=== PATIENT | male | born 1965 | race Caucasian/White ===

== ENCOUNTER 2017-05-18 06:06 | Emergency (ER) | payer MEDICAID ==
[~2017-05-18] VITALS: Ht 182.9 cm; Wt 95.3 kg
[~2017-05-18 06:06] MED LIST: AMITRIPTYLINE50 MG PO; HUMULIN 70100 UNITS/ SC; HYDROCODONE-APA1 TA2 PO; LISINOPRIL40 MG PO; LOPERAMIDE1 MG/5 ML PO; NADOLOL40 MG PO; PANTOPRAZOLE SO40 MG PO; SPIRONOLACTONE25 MG NG; ZOFRAN ODT8 MG PO
--- NOTE | 2017-05-18 06:25 | Emergency Room Report ---
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 LACERATION ABOVE RIGHT EYE/EYEBROW. 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 N Clinical Suspician of Infection? N Mental Status: 1 - Regular (Normal Baseline) Sepsis Risk:Possible Sepsis Risk Have you (or family members/close friends) recently traveled outside the [place]? N If Yes, where/when: Have you had exposure to infectious disease within the past month? N TB? Other? Specify: Source patient, RN notes reviewed, EMS, old records Exam Limitations no limitations Comment trip type fall with rt eyebrow lac -1.5 cm- no loc or palpatations and no syncope and no chest pain or hip pain Cardiac Chest Pain Chest pain indicative of cardiac No Timing/Duration this evening Severity moderate ALLERGIES Coded Allergies: No Known Allergies (07/10/15) Home Medications Reported Medications AMITRIPTYLINE HCL (Amitriptyline HCl) 50 MG PO QHS INSUL REG 30%ISOPHAN 70% HUMAN (Humulin 70-30 Vial) 40 UNITS SC TID Lisinopril (Lisinopril 40MG) 40 MG PO DAILY Pantoprazole Sodium (Pantoprazole 40MG) 40 MG PO DAILY Ondansetron (Zofran 8MG Odt) 4 MG PO PRN PRN N/V Nadolol 40 MG PO DAILY Loperamide Hydrochloride (Loperamide) 1 MG PO DAILY Spironolactone (Spironolactone) 25 MG NG DAILY HYDROCODONE/ACETAMINOPHEN (Hydrocodon-Acetaminoph 7.5-325) 1 TAB PO TID History Medical History General CAD? No Angina: No AR: No Hypertension? Yes Hyperlipidemia? No CHF? No DVT? No PE? No COPD? No Asthma? No Anemia? No GERD? Yes Gastric ulcers? No GI Bleed? No Hernia? No Thyroid Problems? No Hypothyroidism? No CVA? No Seizures? No Diabetes? Yes Insulin Dependent: Yes Insulin Pump: No Home FSBS? Yes Renal Insuffiency? No End Stage Renal Disease? No UTI? No Stones? No BPH? No GB Disease: No Nephritic Syndrome? No Asplenia? No Hepatitis? Yes Sickle Cell Disease? No Arthritis? Yes Migraines? No Cataracts? No Glaucoma? No MRSA? No HIV? No TB? No Anxiety? No Depression? No Cancer? No More? No Immunization Hx DT/Tetanus 1-4 Years Ago Surgical Hx Previous Surgery?Y RIGHT CLAVICAL Lung Procedures HIP RELACEMENT Social History Smoking Hx Smoker: Current Every Day Smoker Tobacco: Yes Type Cigarettes Packs/day 1 1/2 - 2 Packs Alcohol Alcohol: No Drugs none Review of Systems All Other Systems Reviewed and Negative Constitutional denies fever Eyes denies drainage ENT denies: ear discharge, epistaxis, throat pain. Respiratory denies cough, denies wheezing Cardiovascular denies chest pain, denies palpitations, denies syncope Gastrointestinal denies abdominal pain, denies diarrhea, denies vomiting Genitourinary denies: dysuria, frequency, hesitancy, hematuria. Musculoskeletal denies back pain, denies joint pain, denies joint swelling, denies neck pain Skin see HPI, denies rash, other Psychiatric/Neurological denies headache, denies seizure Physical Exam Vital Signs Vital Signs Date Time Temp Pulse Resp B/P Pulse O2 O2 Flow FiO2 Ox Delivery Rate 05/18 0638 88 20 151/76 94 05/18 0609 98.7 94 20 152/67 94 - WBC >12,000 or <4,000 or 10% bands? 2 or more SIRS Criteria Met? B/P:152/67 MAP:95 Creatinine >2.0? UA output<0.5ml/kg/hr for 2 hrs? Platelet count >100,000? Lactate >2.0mmol/1? INR >1.2 or PTT > than 60 sec? Evidence of Organ Dysfunction? Provider documented clinical suspician of infection? N Sepsis Criteria Count: 2 Sepsis Risk: Possible Sepsis Risk General Appearance no apparent distress Eye Exam - bilateral eye PERRL, bilateral eye EOMI Ear, Nose, Throat normal ENT inspection Neck non-tender Respiratory Status No: respiratory distress. 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 No Results/Orders Current Medication Orders Sig/Ellie Start time Last Medication Dose Route Stop Time Status Admin Lidocaine HCl 0 .STK-MED ONE 05/18 612 DC .ROUTE Orders Procedure Date/time Status OP COURTSEY MEAL 05/18 626 Active Procedures Laceration/Wound Repair Laceration/Wound Repair Risks/benefits discussed with pt/guardian? Yes Tetanus status up to date Wound Location face Wound Length (cm) 1.5 Wound's Depth, Shape sucutaneous tissue Wound Explored no FB identified Risk of retained FB explained to pt/guardian? Yes Irrigated w/ Saline (ccs) 0 Wound Prep Hibiclens, Saline Anesthesia 1% Lidocaine, Local Volume Anesthetic (ccs) 2 Wound Debrided none Wound Repaired With sutures Suture Size/Type 4:0, Ethilon Layer Closure No Total Number Sutures 5 Sterile Dressing Applied Yes Splint Applied No Sling Applied No Departure Departure Time of Disposition 33 Disposition DC Home or Self Care(routine) Clinical Impression Primary Impression: Facial laceration Qualifiers: Encounter type: initial encounter Qualified Code: S01.81XA - Laceration without foreign body of other part of head, initial encounter Secondary Impressions: IDDM (insulin dependent diabetes mellitus) Condition STABLE Referrals DANIEL GRUBBS (Family) Patient Instructions DI for Laceration Repair Additional Instructions suture out 10 days and call pcp about diabetes Discharge Counseling Counseled pt/family regarding diagnosis, test results, medications/RX, follow up needs ED Critical Care Critical Care No at [id number]
--- OUTSIDE RECORDS SUMMARY | 2017-05-18 07:28 | External Medical Summary Rpt | CCD ---
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 UL 1 38 CY TR A2 #0 23 GL 32 UC OS E SY ST 00 08 09 30 30 00 CV Ac PI 53 -3 -2 .0 00 S ti RI 61 1- 9- 00 01 PH ve N 00 20 20 39 AR EC 44 17 17 04 MA 1 40 CY 81 #0 MG 23 32 TA BL ET LE 65 08 09 5. 5 00 CV Ac VO 86 -3 -2 00 00 S ti FL 20 1- 9- 0 01 PH ve OX 53 20 20 39 AR AC 75 17 17 04 MA IN 0 39 CY 50 #0 0 23 MG 32 TA BL ET FL 57 08 09 2. 2 00 CV Ac UC 23 -3 -2 00 00 S ti ON 70 1- 9- 0 01 PH ve AZ 00 20 20 39 AR OL 51 17 17 03 MA E 1 00 CY 15 0 #0 MG 23 32 TA BL ET FU 00 09 09 30 30 00 CV Ac RO 37 -0 -2 .0 00 S ti SE 80 5- 9- 00 01 PH ve OH 20 20 20 39 AR DE 81 17 17 20 MA 0 62 CY 20 #0 MG 23 32 TA BL ET BE 67 09 09 20 10 00 CV Ac NZ 87 -0 -2 .0 00 S ti ON 70 2- 9- 00 01 PH ve AT 10 20 20 38 AR AT 50 17 17 87 MA E 5 41 CY 10 0 #0 MG 23 32 CA PS UL E GA 65 08 09 90 30 00 CV Ac BA 86 -3 -2 .0 00 S ti PE 20 0- 2- 00 01 PH ve NT 52 20 20 38 AR IN 40 17 17 98 MA 5 14 CY 80 0 #0 MG 23 32 TA BL ET OX 10 08 09 90 30 00 CV Ac YC 70 -3 -2 .0 00 S ti OD 20 0- 2- 00 01 PH ve ON 05 20 20 38 AR E 60 17 17 97 MA HC 1 97 CY L 10 #0 23 MG 32 TA BL ET ON 53 08 09 10 28 00 CV Ac ET 88 -2 -2 0. 00 S ti OU 50 9- 2- 00 01 PH ve CH 24 20 20 0 38 AR 51 17 17 85 MA UL 0 61 CY TR A #[address] RI PS TR 50 08 09 30 30 00 CV Ac AZ 11 -2 -2 .0 00 S ti OD 10 5- 2- 00 01 PH ve ON 43 20 20 38 AR E 30 17 17 76 MA 50 1 19 CY MG #0 23 TA 32 BL ET RA 64 08 09 60 30 00 CV Ac NI 38 -2 -2 .0 00 S ti TI 00 4- 2- 00 01 PH ve DI 80 20 20 38 AR NE 30 17 17 71 MA 7 06 CY 15 0 #0 MG 23 32 TA BL ET LA 50 08 09 27 [address] 38 -2 -1 00 00 S ti UL 30 3- 5- .0 01 PH ve OS 77 20 20 00 38 AR E 91 17 17 65 MA 10 6 08 CY GM #0 /1 23 5 32 ML SO BRIAN TI ON LE 65 08 09 6. 6 00 CV Ac VO 86 -2 -1 00 00 S ti FL 20 3- 5- 0 01 PH ve OX 53 20 20 38 AR AC 82 17 17 65 MA IN 0 07 CY 75 #0 0 23 MG 32 TA BL ET BU 10 08 30 30 00 CV Ac CA 37 -2 -1 .0 00 S ti OP 00 3- 5- 00 01 PH ve IO 10 20 20 31 AR N 15 17 17 81 MA HC 0 01 CY L XL #0 23 15 32 0 MG TA BL ET LI 68 08 30 30 00 CV Ac SI 18 -2 -1 .0 00 S ti NO 00 3- 5- 00 01 PH ve CA 51 20 20 34 AR IL 70 17 17 98 MA 3 82 CY 40 #0 MG 23 32 TA BL ET BD 08 08 10 30 00 CV Ac 29 -2 -1 0. 00 S ti IN 03 3- 5- 01 PH ve CONTEH 28 20 20 0 32 AR LI 46 17 17 27 MA N 8 44 CY SY R #0 0. 23 5 32 ML 8M MX 31 G NO 00 03 12 30 30 00 CV Ac VO 16 -2 -1 .0 00 S ti LI 91 3- 5- 01 PH ve N 83 20 20 28 AR 70 71 17 17 85 MA -3 1 21 CY 0 10 #0 0 23 UN 32 IT /M L AL LI 68 05 30 30 00 CV Ac SI 18 -2 -2 .0 00 S ti NO 00 3- 01 PH ve CA 51 20 20 34 AR IL 70 17 17 98 MA 3 82 CY 40 #0 MG 23 32 TA BL ET BU 10 05 30 30 00 CV Ac CA 37 -2 -2 .0 00 S ti OP 00 - 3- 01 PH ve IO 10 20 20 31 AR N 15 17 17 81 MA HC 0 01 CY L XL #0 23 15 32 0 MG TA BL ET NO 00 12 07 30 30 00 CV Ac RT 09 -2 -1 .0 00 S ti RI 30 4- 6- 00 01 PH ve PT 81 20 20 35 AR YL 10 17 17 02 MA IN 1 23 CY E HC #0 L 23 25 32 MG CA P AC 65 05 10 30 00 CV Ac CU 70 -2 -1 0. 00 S ti -C 20 1- 6- 00 01 PH ve HE 40 20 20 0 28 AR K 81 17 17 85 MA AV 0 22 CY IV A #0 PL [address] RP NO 00 05 06 30 30 00 CV Ac VO 16 -2 -1 .0 00 S ti LI 91 1- 6- 00 01 PH ve N 83 20 20 28 AR 70 71 17 17 85 MA -3 1 21 CY 0 10 #0 0 23 UN 32 IT /M L AL GA 65 05 06 90 30 00 CV Ac BA 86 -1 -0 .0 00 S ti PE 20 0- 2- 00 01 PH ve NT 52 20 20 33 AR IN 40 17 17 04 MA 5 41 CY 80 0 #0 MG 23 32 TA BL ET OX 10 05 06 90 30 00 CV Ac YC 70 -1 -0 .0 00 S ti OD 20 0- 2- 00 01 PH ve ON 05 20 20 34 AR E 60 17 17 36 MA HC 1 62 CY L 10 #0 23 MG 32 TA BL ET AC 65 05 06 1. 30 00 CV Ac CU 70 -0 -0 00 00 S ti -C 20 4- 2- 0 01 PH ve HE 10 20 20 34 AR K 11 17 17 12 MA AV 0 81 CY IV A #0 PL 23 US 32 ME TE R BU 10 04 05 30 30 00 CV Ac CA 37 -2 -2 .0 00 S ti OP 00 9- 6- 00 01 PH ve IO 10 20 20 31 AR N 15 17 17 81 MA HC 0 01 CY L XL #0 23 15 32 0 MG TA BL ET OH 00 04 05 30 30 00 CV Ac RT 09 -2 -2 .0 00 S ti AZ 37 9- 6- 00 01 PH ve AP 20 20 20 32 AR IN 65 17 17 89 MA E 6 41 CY 15 #0 MG 23 32 TA BL ET DU 66 04 05 30 30 00 CV Ac LO 99 -2 -1 .0 00 S ti XE 30 3- 9- 00 01 PH ve TI 66 20 20 30 AR NE 33 17 17 17 MA 0 17 CY HC L #0 DR 23 32 30 MG CA P NO 00 04 05 30 30 00 CV Ac VO 16 -2 -1 .0 00 S ti LI 91 3- 9- 00 01 PH ve N 83 20 20 28 AR 70 71 17 17 85 MA -3 1 21 CY 0 10 #0 0 23 UN 32 IT /M L AL AC 65 04 05 10 30 00 CV Ac CU 70 -2 -1 0. 00 S ti -C 20 3- 9- 00 01 PH ve HE 40 20 20 0 28 AR K 81 17 17 85 MA AV 0 22 CY IV A #0 PL [address] RP BD 08 04 05 10 30 00 CV Ac 29 -2 -1 0. 00 S ti IN 03 3- 9- 00 01 PH ve CONTEH 28 20 20 0 32 AR LI 46 17 17 27 MA N 8 44 CY SY R #0 0. 23 5 32 ML 8M MX 31 G LA 59 04 05 60 21 00 CV Ac MO 74 -0 -0 .0 00 S ti TR 60 6- 5- 00 01 PH ve IG 24 20 20 32 AR IN 50 17 17 89 MA E 1 40 CY 25 #0 MG 23 32 TA BL ET OH 00 04 05 30 30 00 CV Ac RT 09 -0 -0 .0 00 S ti AZ 37 6- 5- 00 01 PH ve AP 20 20 20 32 AR IN 65 17 17 89 MA E 6 41 CY 15 #0 MG 23 32 TA BL ET GA 65 04 05 90 30 00 CV Ac BA 86 -1 -0 .0 00 S ti PE 20 0- 5- 00 01 PH ve NT 52 20 20 33 AR IN 40 17 17 04 MA 5 41 CY 80 0 #0 MG 23 32 TA BL ET LI 68 03 04 30 30 00 CV Ac SI 18 -2 -2 .0 00 S ti NO 00 4- - 01 PH ve CA 51 20 20 28 AR IL 70 17 17 67 MA 3 87 CY 40 #0 MG 23 32 TA BL ET NO 00 03 04 30 30 00 CV Ac VO 16 -2 -2 .0 00 S ti LI 91 4- 1- 01 PH ve N 83 20 20 28 AR 70 71 17 17 85 MA -3 1 21 CY 0 10 #0 0 23 UN 32 IT /M L AL DU 66 03 04 30 30 00 CV Ac LO 99 -2 -2 .0 00 S ti XE 30 4- 1- 00 01 PH ve TI 66 20 20 30 AR NE 33 17 17 17 MA 0 17 CY HC L #0 DR 23 32 30 MG CA P NO 00 03 04 30 30 00 CV Ac RT 09 -2 -2 .0 00 S ti RI 30 4- 1- 00 01 PH ve PT 81 20 20 30 AR YL 10 17 17 04 MA IN 1 39 CY E HC #0 L 23 25 32 MG CA P CA 68 03 04 30 30 00 CV Ac AM 46 -2 -2 .0 00 S ti IP 20 4- 1- 00 01 PH ve EX 33 20 20 30 AR OL 19 17 17 04 MA E 0 37 CY 0. 25 #0 23 MG 32 TA BL ET BD 08 03 04 10 30 00 CV Ac 29 -2 -2 0. 00 S ti IN 03 4- 1- 00 01 PH ve CONTEH 28 20 20 0 32 AR LI 46 17 17 27 MA N 8 44 CY SY R #0 0. 23 5 32 ML 8M MX 31 G AC 65 03 04 10 30 00 CV Ac CU 70 -2 -2 0. 00 S ti -C 20 4- 1- 00 01 PH ve HE 40 20 20 0 28 AR K 81 17 17 85 MA AV 0 22 CY IV A #0 PL [address] RP BU 10 03 04 30 30 00 CV Ac CA 37 -1 -0 .0 00 S ti OP 00 5- 7- 00 01 PH ve IO 10 20 20 31 AR N 15 17 17 81 MA HC 0 01 CY L XL #0 23 15 32 0 MG TA BL ET GA 65 03 04 90 30 00 CV Ac BA 86 -1 -0 .0 00 S ti PE 20 3- 7- 00 01 PH ve NT 52 20 20 31 AR IN 40 17 17 64 MA 5 63 CY 80 0 #0 MG 23 32 TA BL ET OX 10 03 04 90 30 00 CV Ac YC 70 -1 -0 .0 00 S ti OD 20 0- 7- 00 01 PH ve ON 05 20 20 31 AR E 60 17 17 54 MA HC 1 56 CY L 10 #0 23 MG 32 TA BL ET CONTEH 65 02 03 20 10 00 CV Ac LF 86 -2 -1 .0 00 S ti AM 20 0- 7- 00 01 PH ve ET 42 20 20 30 AR HO 00 17 17 63 MA XA 5 09 CY ZO LE #0 -T 23 MP 32 DS TA BL ET BD 08 02 03 10 30 00 CV Ac 29 -1 -1 0. 00 S ti SY 03 4- 0- 00 01 PH ve RI 28 20 20 0 30 AR NG 46 17 17 36 MA E 6 64 CY 0. 5 #0 ML 23 32 12 .7 MM X3 0G AC 65 02 03 10 30 00 CV Ac CU 70 -1 -1 0. 00 S ti -C 20 4- 0- 00 01 PH ve HE 40 20 20 0 28 AR K 81 17 17 85 MA AV 0 22 CY IV A #0 PL [address] RP DU 66 02 03 30 30 00 CV Ac LO 99 -1 -1 .0 00 S ti XE 30 0- 0- 00 01 PH ve TI 66 20 20 30 AR NE 33 17 17 17 MA 0 17 CY HC L #0 DR 23 32 30 MG CA P NO 00 02 03 30 30 00 CV Ac VO 16 -1 -1 .0 00 S ti LI 91 2- 0- 00 01 PH ve N 83 20 20 28 AR 70 71 17 17 85 MA -3 1 21 CY 0 10 #0 0 23 UN 32 IT /M L AL CA 68 02 03 30 30 00 CV Ac AM 46 -0 -0 .0 00 S ti IP 20 8- 3- 00 01 PH ve EX 33 20 20 30 AR OL 19 17 17 04 MA E 0 37 CY 0. 25 #0 23 MG 32 TA BL ET LI 68 02 03 30 30 00 CV Ac SI 18 -0 -0 .0 00 S ti NO 00 8- 3- 00 01 PH ve CA 51 20 20 28 AR IL 70 17 17 67 MA 3 87 CY 40 #0 MG 23 32 TA BL ET OX 10 02 03 90 30 00 CV Ac YC 70 -0 -0 .0 00 S ti OD 20 8- 3- 00 01 PH ve ON 05 20 20 30 AR E 60 17 17 05 MA HC 1 38 CY L 10 #0 23 MG 32 TA BL ET NO 00 02 03 30 30 00 CV Ac RT 09 -0 -0 .0 00 S ti RI 30 8- 3- 00 01 PH ve PT 81 20 20 30 AR YL 10 17 17 04 MA IN 1 39 CY E HC #0 L 23 25 32 MG CA P GA 65 02 03 90 30 00 CV Ac BA 86 -0 -0 .0 00 S ti PE 20 8- 3- 00 01 PH ve NT 52 20 20 30 AR IN 30 17 17 04 MA 5 38 CY 60 0 #0 MG 23 32 TA BL ET GA 69 01 02 90 30 00 CV Ac BA 09 -1 -1 .0 00 S ti PE 70 3- 0- 00 01 PH ve NT 81 20 20 27 AR IN 50 17 17 06 MA 7 28 CY 40 0 #0 MG 23 32 CA PS UL E NO 00 01 02 30 30 00 CV Ac VO 16 -1 -1 .0 00 S ti LI 91 6- 0- 00 01 PH ve N 83 20 20 28 AR 70 71 17 17 85 MA -3 1 21 CY 0 10 #0 0 23 UN 32 IT /M L AL BD 08 01 02 10 30 00 CV Ac 29 -1 -1 0. 00 S ti SY 03 3- 0- 00 01 PH ve RI 28 20 20 0 28 AR NG 46 17 17 85 MA E 6 23 CY 0. 5 #0 ML 23 32 12 .7 MM X3 0G AC 65 01 02 10 30 00 CV Ac CU 70 -1 -1 0. 00 S ti -C 20 3- 0- 00 01 PH ve HE 40 20 20 0 28 AR K 81 17 17 85 MA AV 0 22 CY IV A #0 PL [address] RP LI 68 01 02 30 30 00 CV Ac SI 18 -1 -1 .0 00 S ti NO 00 3- 0- 00 01 PH ve CA 51 20 20 28 AR IL 70 17 17 67 MA 3 87 CY 40 #0 MG 23 32 TA BL ET RA 55 12 01 60 30 00 CV Ac NI 11 -0 -0 .0 00 S ti TI 10 5- 9- 00 01 PH ve DI 12 20 20 26 AR NE 90 16 17 93 MA 5 11 CY 15 0 #0 MG 23 32 CA PS UL E OX 10 12 01 90 30 00 CV Ac YC 70 -1 -0 .0 00 S ti OD 20 0- 9- 00 01 PH ve ON 05 20 20 27 AR E 60 16 17 22 MA HC 1 55 CY L 10 #0 23 MG 32 TA BL ET Immunization Name Date Rout CVX Reac Dose Comm Prov Is Faci e tion ent ider Refu lity Give sed n IIV4 11-1 150 KALINA No KMSF 0-20 CAR VACC 16 NURS E PRES PRAC RV MATT FREE LALO 0.5 ML GR FOR IM USE Results Labs Lab Lab Date Result Refere Interp Status Commen Order Detail nces retati t Range on Hgb A1c MFr Bld (03-25-2017 06:09) Hgb A1c 5.9 % 4.7-6.0 complet MFr 017 ed Bld 06:09 Lactate Bld-sCnc (03-24-2017 05:08) Lactate 1.4 complet 017 mmol/L ed Bld-sCn 05:08 c Bacteria XXX Resp Cult (03-23-2017 12:20) Bacteri INSP complet a XXX 017 SMEAR ed Anaerob 12:20 CONTAIN e+Aerob S >=10 e Cult SQUAMOU S EPITHEL IAL CELLS PER LOW POWER FIELD, SUGGEST JOSE F OF POOR QUALITY . CULTURE NOT PERFORM ED. PLEASE RECOLLE CT IF CLINICA LLY INDICAT ED. A CREDIT HAS BEEN ISSUED. L CC XXX NOTAP complet -aCnc 017 NOT ed 12:20 APPLICA BLE L Procedures Procedure DOS Code Location Performer Comment RADIOLOGI 94975 [facility] C EXAM 7 N N CHEST 2 COMMUNTIY COMMUNTIY VIEWS HOSPITA HOSPITA FRONTAL&L ATERAL THERAPEUT [address]6890 [place] IC 7 MEDICAL PROPHYLAC SERV TIC/DX FOUNDATIO INJECTION N SUBQ/IM DUP-SCAN 52649 [facility] XTR VEINS 7 N N COMPLETE COMMUNTIY COMMUNTIY HOSPITA HOSPITA BILATERAL STUDY DRUG TEST 38920 [facility] PRSMV 7 ORA NAPOLES MD,[place] [address] [place] RASLAU HEAD/BRAI 7 MEDICAL N W/O SERV CONTRAST FOUNDATIO MATERIAL N RADIOLOGI 46306 [place] NICHOL C 7 MEDICAL EXAMINATI SERV ON CHEST FOUNDATIO SINGLE N VIEW FRONTAL ECG 32792 [place] SANTA ROUTINE 7 MEDICAL ECG SERV W/LEAST FOUNDATIO 12 LDS N I&R ONLY GROUND A0425 JAME JAME MILEAGE 7 FAYETTE FAYETTE PER URBAN URBAN STATUTE COGOVT COGOVT MILE AMBULANCE A0429 JAME JAME SERVICE 7 FAYETTE FAYETTE BLS URBAN URBAN EMERGENCY COGOVT COGOVT TRANSPORT GROUND A0425 RURAL RURAL MILEAGE 7 METRO METRO PER AMBULANCE AMBULANCE STATUTE MILE ALS A0398 [facility] ROUTINE 7 METRO METRO [place]POSABL [place] [address] [place] TRUE HEAD/BRAI 7 MEDICAL N W/O SERV CONTRAST FOUNDATIO MATERIAL N AMB A0427 [facility] SERVICE 7 METRO METRO ALS AMBULANCE AMBULANCE EMERGENCY TRANSPORT LEVEL 1 RADIOLOGI 41761 [facility] [place] JACKLIC C 7 RADIOLOGY EXAMINATI ON CHEST SINGLE VIEW FRONTAL SBSQ 11532 [facility] 7 HEALTH CARE/DAY MEDICAL 25 GROUP MINUTES SBSQ 38523 [facility] 7 HEALTH S CARE/DAY MEDICAL 35 GROUP MINUTES SBSQ 99290 [facility] 7 HEALTH CARE/DAY MEDICAL 25 GROUP MINUTES SWALLOWIN 38792 [place] ALLEY SEALSJ 7 MEDICAL W/CINERAD SERV IOGRAPY/V FOUNDATIO IDRADIOG N SBSQ 09935 [facility] 7 NURSE CARE/DAY PRACTITIO 35 NER GR MINUTES RADIOLOGI 75252 [place] KATIA C 7 MEDICAL EXAMINATI SERV ON CHEST FOUNDATIO SINGLE N VIEW FRONTAL RADIOLOGI 47041 [place] KATIA 7 MEDICAL EXAMINATI SERV ON CHEST FOUNDATIO SINGLE N VIEW FRONTAL RADIOLOGI 85203 [facility] HATFIEL[facility] 7 MEDICAL AYA EXAMINATI SERV ON CHEST FOUNDATIO SINGLE N VIEW FRONTAL SBSQ 40250 [facility] 7 NURSE CARE/DAY PRACTITIO 35 NER GR MINUTES SBSQ 78855 [facility] 7 NURSE CARE/DAY PRACTITIO 35 NER GR MINUTES RADIOLOGI 94682 [facility] 7 MEDICAL AYA EXAMINATI SERV ON CHEST FOUNDATIO SINGLE N VIEW FRONTAL SBSQ 14529 [facility] 7 NURSE CARE/DAY PRACTITIO 35 NER GR MINUTES RADIOLOGI 77431 [facility] 7 MEDICAL AYA EXAMINATI SERV ON CHEST FOUNDATIO SINGLE N VIEW FRONTAL CRITICAL 88297 [facility] 7 NURSE ILL/INJUR PRACTITIO ED NER GR PATIENT INIT 30-74 MIN ECG 43761 [place] ACACIA ROUTINE 7 MEDICAL ECG SERV W/LEAST FOUNDATIO 12 LDS N I&R ONLY RADIOLOGI 68489 [place] PACO 7 MEDICAL EXAMINATI SERV ON CHEST FOUNDATIO SINGLE N VIEW FRONTAL SBSQ 01026 [facility] 7 NURSE CARE/DAY PRACTITIO 35 NER GR MINUTES RADIOLOGI 16801 [place] ANTONIO C 7 MEDICAL EXAMINATI SERV ON CHEST FOUNDATIO SINGLE N VIEW FRONTAL CRITICAL 74175 [facility] 7 NURSE ILL/INJUR PRACTITIO ED NER GR PATIENT INIT 30-74 MIN RADIOLOGI 52993 [place] PRASANNA C 7 MEDICAL EXAMINATI SERV ON CHEST FOUNDATIO SINGLE N VIEW FRONTAL SBSQ 59951 [facility] 7 NURSE CARE/DAY PRACTITIO 35 NER GR MINUTES RADEX 57106 [place] BRENT ABDOMEN 1 7 MEDICAL SERV ANTEROPOS FOUNDATIO TERIOR N VIEW BLD BANK 10788 [facility] 7 [facility] STANDARD REPRT ARTL 53769 [facility] CATHJ/CAN 7 NURSE NULJ PRACTITIO MNTR/ABBASI NER GR SFUSION SPX PRQ RADIOLOGI 42172 [place] URBAN C 7 MEDICAL EXAMINATI SERV ON CHEST FOUNDATIO SINGLE N VIEW FRONTAL CRITICAL 29913 [facility] 7 NURSE ILL/INJUR PRACTITIO ED NER GR PATIENT INIT 30-74 MIN ESOPHAGOG 85420 [facility] ASTRODUOD 7 MEDICAL ENOSCOPY SERV TRANSORAL FOUNDATIO N DIAGNOSTI C RADIOLOGI 48606 [place] PRASANNA C 7 MEDICAL EXAMINATI SERV ON CHEST FOUNDATIO SINGLE N VIEW FRONTAL SBSQ 34794 [facility] 7 MEDICAL CARE/DAY SERV 35 FOUNDATIO MINUTES N RADEX 27615 [place] WAGONER ABDOMEN 1 7 MEDICAL SERV ANTEROPOS FOUNDATIO TERIOR N VIEW CRITICAL 82005 [facility] 7 NURSE ILL/INJUR PRACTITIO ED NER GR PATIENT INIT 30-74 MIN RADIOLOGI 87119 [place] PRASANNA C 7 MEDICAL EXAMINATI SERV ON CHEST FOUNDATIO SINGLE N VIEW FRONTAL RADIOLOGI 48337 [place] DUGGAN C 7 MEDICAL EXAMINATI SERV ON CHEST FOUNDATIO SINGLE N VIEW FRONTAL CRITICAL 64555 [facility] SH[facility] CARE 7 NURSE ILL/INJUR PRACTITIO ED NER GR PATIENT INIT 30-74 MIN DUP-SCAN 81109 [facility]ENN[facility] 7 MEDICAL ABDL/PEL/ SERV SCROT&/RP FOUNDATIO R ORGN N COM RADIOLOGI 62418 [place] C 7 MEDICAL MEDICAL EXAMINATI SERV SERV ON CHEST FOUNDATIO FOUNDATIO SINGLE N N VIEW FRONTAL INITIAL 76455 [place] NICKL III INPATIENT 7 MEDICAL CONSULT SERV NEW/ESTAB FOUNDATIO PT [address] [place] [address] [place] BRENT ABDOMINAL 7 MEDICAL REAL SERV TIME FOUNDATIO W/IMAGE N LIMITED SBSQ 16571 [facility] 7 NURSE CARE/DAY PRACTITIO 35 NER GR MINUTES SBSQ 30398 [place] [address] NURSE CARE/DAY PRACTITIO 35 NER GR MINUTES RADIOLOGI 83639 [place] JOVI OLSONI C 7 MEDICAL EXAMINATI SERV ON CHEST FOUNDATIO SINGLE N VIEW FRONTAL CRITICAL 65288 [facility] MAURI CARE 7 NURSE ILL/INJUR PRACTITIO ED NER GR PATIENT INIT 30-74 MIN RADIOLOGI 68135 [place] PRASANNA C 7 MEDICAL EXAMINATI SERV ON CHEST FOUNDATIO SINGLE N VIEW FRONTAL RADEX 60204 [place] SARA ABDOMEN 1 7 MEDICAL SERV ANTEROPOS FOUNDATIO TERIOR N VIEW RADIOLOGI 83785 [place] NANCY C 7 MEDICAL EXAMINATI SERV ON CHEST FOUNDATIO SINGLE N VIEW FRONTAL CRITICAL 28783 [facility] MAURI CARE 7 NURSE ILL/INJUR PRACTITIO ED NER GR PATIENT INIT 30-74 MIN RADIOLOGI 14478 [place] PRASANNA C 7 MEDICAL EXAMINATI SERV ON CHEST FOUNDATIO SINGLE N VIEW FRONTAL RADIOLOGI 87204 [place] PRASANNA C 7 MEDICAL EXAMINATI SERV ON CHEST FOUNDATIO SINGLE N VIEW FRONTAL RADIOLOGI 84337 [place] DUGGAN C 7 MEDICAL EXAMINATI SERV ON CHEST FOUNDATIO SINGLE [place] FRONTAL ECG 80063 [place] ACACIA ROUTINE 7 MEDICAL ECG SERV W/LEAST FOUNDATIO 12 LDS N I&R ONLY RADIOLOGI 58006 [place] NANCY C 7 MEDICAL EXAMINATI SERV ON CHEST FOUNDATIO SINGLE N VIEW FRONTAL CRITICAL 23010 [facility] 7 NURSE ILL/INJUR PRACTITIO ED NER GR PATIENT INIT 30-74 MIN RADIOLOGI 09753 [place] NANCY C 7 MEDICAL EXAMINATI SERV ON CHEST FOUNDATIO SINGLE N VIEW FRONTAL RADIOLOGI 42434 [place] URBAN C 7 MEDICAL EXAMINATI SERV ON CHEST FOUNDATIO SINGLE N VIEW FRONTAL CRITICAL 19304 [facility] MAURI CARE 7 NURSE ILL/INJUR PRACTITIO ED NER GR PATIENT INIT 30-74 MIN RADIOLOGI 15480 [place] URBAN C 7 MEDICAL EXAMINATI SERV ON CHEST FOUNDATIO SINGLE N VIEW FRONTAL RADIOLOGI 09804 [place] KATIA C 7 MEDICAL EXAMINATI SERV ON CHE[place] [address] [place] NANCY ANGIOGRAP 7 MEDICAL HY CHEST SERV W/CONTRAS FOUNDATIO T/NONCONT N RAST ANES 94807 [place] DORETHA THORACOTO 7 MEDICAL JR MY & SERVICES THORACOSC OPY W/1 LUNG VNTJ INSJ 39482 [facility] SOFYA NON-TUNNE 7 NURSE LED PRACTITIO CENTRAL NER GR VENOUS CATH AGE 7 YR/> THORACOSC 31394 [place] REG OPY RMVL 7 MEDICAL INTRAPLEU SERV RAL FOUNDATIO FB/FIBRIN N DEPOSIT RADIOLOGI 49439 [place] NANCY C 7 MEDICAL EXAMINATI SERV ON CHEST FOUNDATIO SINGLE N [place] FRONTAL RADIOLOGI 01766 [place] PRASANNA Whitt 7 MEDICAL EXAMINATI SERV ON CHEST FOUNDATIO SINGLE N VIEW FRONTAL ECHO 64293 [facility] R-T 7 MEDICAL 2D SERV W/WOM-MOD FOUNDATIO E COMPL N SPEC&COLR D [facility] 29943 [facility] SOFYA W/SILVIANCL 7 NURSE ALVEOLAR PRACTITIO LAVAGE NER GR CYTP 23528 [facility] 7 Y OF [facility] SMEARS & HOSPI INTERPRET ATION SBSQ 80624 [facility] 7 NURSE CARE/DAY PRACTITIO [address] THORAX 64144 [place] KATIA W/O 7 MEDICAL CONTRAST SERV MATERIAL FOUNDATIO N ARTL 17899 [place] ANUEL CATHJ/CAN 7 MEDICAL NULJ SERV MNTR/ABBASI FOUNDATIO SFUSION N SPX PRQ RADIOLOGI 63716 [place] KATIA C 7 MEDICAL EXAMINATI SERV ON CHEST FOUNDATIO SINGLE N VIEW FRONTAL RADIOLOGI 30912 [place] KATIA C 7 MEDICAL EXAMINATI SERV ON CHEST FOUNDATIO SINGLE N VIEW FRONTAL SBSQ 47670 [facility] 7 MEDICAL CARE/DAY SERV 25 FOUNDATIO MINUTES N SBSQ 25429 [facility] 7 MEDICAL CARE/DAY SERV 15 FOUNDATIO MINUTES N RADEX 27766 [place] SARA ABDOMEN 1 7 MEDICAL SERV ANTEROPOS FOUNDATIO TERIOR N VIEW RADIOLOGI 54915 [place] ROSEDALE C 7 MEDICAL EXAMINATI SERV ON CHE[place] F[place] [address] [place] NICHOL THORACIC 7 MEDICAL SPINE W/O SERV CONTRAST FOUNDATIO MATERIAL N RADIOLOGI 48644 [place] NANCY C 7 MEDICAL EXAMINATI SERV ON CHEST FOUNDATIO SINGLE N VIEW FRONTAL AMB A0431 AIR AIR SERVICE 7 METHODS METHODS CONVNTION [facility] AIR SRVC TRANSPORT [address] INITIAL [address] [facility] 7 MEDICAL CARE/DAY SERV [address] [place] [address] [place] NIHCOL ANGIOGRAP 7 MEDICAL HY CHEST SERV W/CONTRAS FOUNDAT[place] T/[place] [address] [place] CERVICAL 7 MEDICAL SPINE W/[place] [address] [place] MERHAR ANGIOGRAP 7 MEDICAL HY NECK SERV W/CONTRAS FOUNDATIO T/NONCONT N [place] LUMBAR [address] [place]OL SPINE 7 MEDICAL W/[place] [address] [place] MER[place] MAXILLOFA 7 MEDICAL CIAL W/[place] [address] VERNON MERHAR ANGIOGRAP 7 MEDICAL HY HEAD SERV W/CONTR[place] [address] VERNON SARMIENTOER ABDOMEN & 7 MEDICAL PELVIS SERV W/CONTRAS FOUNDATIO [place] ANY [address] [facility] JT UPPER 7 N N EXTREMITY COMMUNTIY COMMUNTIY W/O HOSPITA HOSPITA CONTRAST MATRL RADEX HIP 81116 [facility] [place] FAMILIA 7 RADIOLOGY UNILATERA L WITH PELVIS 2-3 VIEWS SIMPLE 83014 [facility] [place] REPAIR 7 ANA M E SCALP/NEC EMERGENCY K/AX/SILVERIO PHYS T/TRUNK 2.5CM/< AMB A0427 JAME JAME SERVICE 7 FAYETTE FAYETTE ALS [facility] EMERGENCY [place] [address] [facility] [place] BEEBE HEAD/BRAI 7 RADIOLOGY N W/O CONTRAST MATERIAL CT LUMBAR [address]10 [facility] [place] BEEBE SPINE 7 RADIOLOGY W/O CONTRAST MATERIAL ECG 09982 [facility] CELLAROSI ROUTINE 7 ANA M - YORBA ECG EMERGENCY W/LEAST PHYS 12 LDS I&R ONLY GROUND A0425 JAME JAME MILEAGE 7 FAYETTE FAYETTE PER URBAN [place] [address] [facility] [place] BEEBE CERVICAL 7 RADIOLOGY SPINE W/O CONTRAST [place] 31771 NUBIA FARRELL SAME 7 [place], PHYS/QHP ,PSC INITIAL 15 MINS 5/> YRS DSTR 86809 NUBIA FARRELL NROLYTC 7 ALESIA [place] MD,PSC PARVERTEB FCT ADDL LMBR/SACR AL DSTR 46135 NUBIA FARRELL NROLYTC 7 ALESIA [place] MD,PSC PARVERTEB FCT SNGL LMBR/SACR AL DRUG TEST 21109 NUBIA FARRELL PRSMV 7 ORA [place] MD,PSC CHEMISTRY ANALYZERS ARTHROCEN 92670 [place] J[place] TESIS 7 ORTHOPEDI ASPIR&/IN C J MAJOR ASSOCIAT JT/BURSA W/O US INJECTION J1030 [facility] JUNIOR 7 ORTHOPEDI METHYLPRE C DNISOLONE ASSOCIAT ACETATE 40 MG RADEX 46978 [facility] [place]isha JUNIOR SHOULDER 7 ORTHOPEDI COMPLETE C MINIMUM 2 ASSOCIAT VIEWS COLLECTIO 63746 [facility] N VENOUS 7 N N BLOOD COMMUNTIY COMMUNTIY VENIPUNCT HOSPITA HOSPITA URE IADNA 04288 [facility] HEPATITIS 7 N N C QUANT COMMUNTIY COMMUNTIY & REVERSE HOSPITA HOSPITA TRANSCRIP TION MOD SED 01396 NUBIA FARRELL SAME 7 LOIDA [place]/QROGERIO ONOFRE,PSC INITIAL 15 MINS 5/> YRS DSTR 83692 NUBIA FARRELL NROLYTC 7 ALESIA NAP[place]ES MD,PSC PARVERTEB FCT ADDL LMBR/SACR AL DSTR 17393 NUBIA FARRELL NROLYTC 7 ALESIA NAPOLES MD,PSC PARVERTEB FCT SNGL LMBR/[place] [address] [facility] JT LOWER 7 N N EXTREM COMMUNTIY COMMUNTIY W/O HOSPITA [place] [address] NUBIA CRAFT PHOSPHORU 7 Cassy NAPOLES MD,PSC INORGANIC BILIRUBIN 73208 NUBIA CRAFT DIRECT 7 MD DONY,PSC COLLECTIO 25345 NUBIA CRAFT N VENOUS 7 ARIS NAPOLES MD,PSC VENIPUNCT URE COMPREHEN 49546 NUBIA CRAFT SIVE 7 [place] [address] NUBIA CRAFT GLUTAMYLT 7 SOUTH NAPOLES MD,PSC GAMMA BLOOD 84211 NUBIA CRAFT COUNT 7 DAVE NAPOLES MD,PSC AUTO&[place] [address] [facility] ABDOMINAL 7 N N REAL COMMUNTIY COMMUNTIY TIME HOSPITA HOSPITA W/IMAGE LIMITED RADEX HIP 93250 [facility] LUMPKINY WAESPE 7 ORTHOPEDI UNILATERA C L WITH ASSOCIAT PELVIS 2-3 VIEWS RADIOLOGI 31519 [facility] PATTERSON C 7 ORTHOPEDI EXAMINATI C ON KNEE 3 ASSOCIAT VIEWS DRUG TEST G0479 NUBIA CRAFT 6 NAPOLES, PRESUMP;I ,PSC NSTRUMENT ED CHEMISTRY ANLYZER CANE E0105 J & L J & L QUAD/3-CA 6 HOME HOME VANDANA [facility] MATL EQUIPMENT EQUIPMENT ADJUSTBL/ FIX W/TIPS KO ELAST L1820 [facility] BLUEGRASS W/CONDYLR 6 BRACING, BRACING, PADS&JNT INC INC PRFAB INCL FIT&ADJ RADIOLOGI 19441 [facility] Whitt EXAM 6 ORTHOPEDI MONIQUE KNEE C COMPLETE ASSOCIAT 4/MORE VIEWS INJECTION J1030 [facility] JUNIOR 6 ORTHOPEDI MONIQUE METHYLPRE C DNISOLONE ASSOCIAT ACETATE 40 MG ARTHROCEN 33615 [facility] LUMPKINMaisha JUNIOR TESIS 6 ORTHOPEDI MONIQUE ASPIR&/IN C J MAJOR ASSOCIAT JT/BURSA W/O US COMPREHEN 94772 [place] [address] Y Y [facility] PANEL HEMOGLOBI [address] SALIMA A1C IM ADM 96987 [facility] KALINA CAR PRQ ID 6 NURSE SUBQ/IM PRACTITIO NJXS 1 NER GR VACCINE IIV4 VACC 47170 [facility] K[place]INA CAR PRESRV 6 NURSE FREE 0.5 PRACTITIO ML FOR IM NER GR USE LIPID 57669 [place] [address] Y [facility] COMPUTERI 00893 ELVI TORRES ZED 6 OPHTHALMI C IMAGING OPTIC NERVE VISUAL 12728 ELVI TOVAR MELISSA FIELD XM 6 UNI/BI W/INTERP EXTENDED EXAM DRAINAGE 43716 [facility] SCROTAL 6 N N WALL COMMUNTIY COMMUNTIY ABSCESS HOSPITA HOSPITA INJECTION J2001 [facility] 6 N N LIDOCAINE COMMUNTIY COMMUNTIY HCL HOSPITA HOSPITA INTRAVENO US INFUS 10 MG INCISION 23336 [facility] & 6 ANA M DANAE DRAINAGE EMERGENCY ABSCESS PHYS COMPLICAT ED/MULTIP LE DRUG TEST G0479 ISABELA HANNAH PRESUMP;Radha ONOFRE,PSC NSTRUMENT ED CHEMISTRY ANLYZER COLLECTIO 22396 NUBIA FARRELL N VENOUS 6 ISABELA NAPOLES MD,[facility] VENIPUNCT URE BILIRUBIN 74836 NUBIA FARRELL DIRECT 6 ISABELA NAPOLES MD,[place] [address] NUBIA FARRELL PHOSPHORU 6 ISABELA NAPOLES MD,PSC INORGANIC BLOOD 29165 NUBIA FARRELL COUNT 6 ISABELA NAPOLES MD,PSC AUTO&[place] [address] NUBIA FARRELL GLUTAMYLT 6 ISABELA NAPOLES MD,PSC GAMMA COMPREHEN 68522 NUBIA FARRELL SIVE 6 ISABELA NAPOLES METABOLIC ,PSC PANEL REMOVAL 60078 KMSF KALINA CAR IMPACTED 6 NURSE CERUMEN PRACTITIO IRRIGATIO NER GR N/LVG UNILAT IADNA 51182 [facility] HEPATITIS 6 N N C QUANT COMMUNTIY COMMUNTIY & REVERSE HOSPITA HOSPITA TRANSCRIP TION COLLECTIO 64745 [facility] N VENOUS 6 N N BLOOD COMMUNTIY COMMUNTIY VENIPUNCT HOSPITA HOSPITA URE COMPREHEN 37549 [facility] SIVE 6 N N METABOLIC COMMUNTIY COMMUNTIY PANEL HOSPITA HOSPITA BLOOD 84188 [facility] COUNT 6 N N COMPLETE COMMUNTIY COMMUNTIY AUTO&AUTO HOSPITA HOSPITA DIFRNTL WBC DRUG TEST G0479 NUBIA CRAFT 6 YONATHAN NAPOLES PRESUMP;Radha ONOFRE,PSC NSTRUMENT ED CHEMISTRY ANLYZER SHVG SKIN 39444 KMS[facility] KALINA CAR LESION 1 6 NURSE PRACTITIO TRUNK/ARM NER GR /LEG DIAM 0.6-1[place] [address] [facility] SURG 6 Y OF VIR PATHOLOGY [place] [facility] GROSS&MONIQUE ROSCOPIC EXAM IADNA 52913 [facility] HEPATITIS 6 N N C QUANT COMMUNTIY COMMUNTIY & REVERSE HOSPITA HOSPITA TRANSCRIP TION COLLECTIO 48777 [facility] N VENOUS 6 N N BLOOD COMMUNTIY COMMUNTIY VENIPUNCT HOSPITA HOSPITA URE BLOOD 45337 [facility] COUNT 6 N N COMPLETE COMMUNTIY COMMUNTIY AUTOMATED HOSPITA HOSPITA COMPREHEN 71379 [facility] SIVE 6 N N METABOLIC COMMUNTIY COMMUNTIY PANEL HOSPITA HOSPITA INCISION 27669 [facility] & 6 N N DRAINAGE COMMUNTIY COMMUNTIY ABSCESS HOSPITA HOSPITA SIMPLE/SI NGLE INCISION 09372 [facility] CELLAROSI & 6 ANA M - YORBA DRAINAGE EMERGENCY PAT ABSCESS PHYS COMPLICAT ED/MULTIP LE DSTR 06634 NUBIA PEÑAP NROLYTC 6 YONATHAN NAPOLES MD,PSC PAR[facility]TEB FCT ADDL LMBR/SACR AL DSTR [address] AGNT SURGERY SURGERY [facility] C[facility] CENTER FCT SNGL LMBR/SACR AL MODERATE 68884 NUBIA PEÑAP SEDATJ 6 YONATHAN NAPOLES SAME, MD,PSC PHYS/QHP 5/>YRS INIT 30 MIN RADEX 28801 [facility] RIBS UNI 6 N N W/POSTERO COMMUNTIY COMMUNTIY ANT CH HOSPITA HOSPITA MINIMUM 3 VIEWS DSTR [address] AGNT SURGERY SURGERY [facility] DETROIT FCT SNGL LMBR/SACR AL LUMB L0642 NUBIA ALVARADORIP ORTHOS 6 YONATHAN NAPOLES MD,PSC CTRL RIGD ANT POST PANELS MODERATE 76659 NUBIA CRAFT SEDATJ 6 YONATHAN NAPOLES SAME, MD,PSC PHYS/QHP 5/>YRS INIT 30 MIN DSTR 27381 NUBIA ALVARADORIP NROLYTC 6 YONATHAN NAPOLES MD,PSC PARVERTEB FCT ADDL LMBR/SACR AL DRUG TEST G0479 ISABELA HANNAH PRESUMP;I ,PSC NSTRUMENT ED CHEMISTRY ANLYZER COLLECTIO 61939 NUBIA FARRELL N VENOUS 6 ISABELA NAPOLES MD,[place] [address] NUBIA FARRELL PHOSPHORU 6 ISABELA NAPOLES MD,PSC INORGANIC BILIRUBIN 87020 NUBIA FARRELL DIRECT 6 ISABELA NAPOLES MD,[place] [address] NUBIA FARRELL GLUTAMYLT 6 ISABELA NAPOLES MD,PSC GAMMA COMPREHEN 22136 NUBIA FARRELL SIVE 6 ISABELA NAPOLES METABOLIC ,PSC PANEL BLOOD 88750 NUBIA FARRELL COUNT 6 ISABELA NAPOLES MD,PSC AUTO&AUTO DIFRNTL WBC RADEX 00621 [facility] [place] SHER[place] FOOT 6 RADIOLOGY III COMPLETE MINIMUM 3 VIEWS GROUND A0425 [facility] MILEAGE 6 N-DENILSON Danish-DENILSON PER CO EMS CO EMS STATUTE MILE AMB A0427 [facility] SERVICE 6 N-DENILSON N-DENILSON ALS CO EMS CO EMS [place] [address] [place] SCALF CARLIE HEAD/BRAI 6 RADIOLOGY N W/O CONTRAST MATERIAL CRITICAL 99479 [facility] 6 ANA M HUG ILL/INJUR PHYSICIAN ED SERVI PATIENT INIT 30-74 MIN BLOOD 31754 [facility] COUNT 6 N N COMPLETE COMMUNTIY COMMUNTIY AUTO&AUTO HOSP[place] [address] [facility] TROPONIN 6 N N QUANTITAT COMMUNTIY COMMUNTIY JOSE F HOSPITA HOSPITA GLUC BLD 75608 [facility] GLUC MNTR 6 N N DEV COMMUNTIY COMMUNTIY CLEARED HOSPITA HOSPITA FDA SPEC HOME USE COMPREHEN 10830 [facility] SIVE 6 N N METABOLIC COMMUNTIY [place] [address] [facility] INFUSION 6 N N HYDRATION COMMUNTIY COMMUNTIY EACH HOSP[place] [address] [facility] AMMONIA 6 N N COMMUNTIY COMMUNTIY HOSPITA HOSPITA RADIOLOGI 92950 [facility] [place] FAMILIA C 6 RADIOLOGY RHO EXAMINATI ON CHEST SINGLE VIEW FRONTAL INFUSION J7030 [facility] NORMAL 6 N N SALINE COMMUNTIY COMMUNTIY SOLUTION HOSPITA HOSPITA 1000 CC GROUND A0425 [facility] MILEAGE 6 N-DENILSON CRUZ PER CO EMS CO EMS STATUTE MILE AMBULANCE A0429 [facility] SERVICE 6 N-DENILSON CRUZ BLS CO EMS CO EMS EMERGENCY TRANSPORT COLLECTIO 39048 [facility] N VENOUS 6 N N BLOOD COMMUNTIY COMMUNTIY VENIPUNCT HOSPITA HOSPITA URE KETONE 30925 [facility] BODIES 6 N N SERUM COMMUNTIY COMMUNTIY QUALITATI HOSPITA HOSPITA VE ECG 14942 [facility] ROUTINE 6 N N ECG COMMUNTIY COMMUNTIY W/LEAST HOSPITA HOSPITA 12 LDS TRCG ONLY W/O I&R THER 51712 [facility] PROPH/DX 6 N N NJX IV COMMUNTIY COMMUNTIY PUSH HOSPITA HOSPITA SINGLE/1S T SBST/DRUG NJX 55938 [facility] DX/THER 6 DEN DEN AGT PVRT FACET JT LMBR/SAC 1 LEVEL NJX 44099 [facility] DX/THER 6 DEN DEN AGT PVRT FACET JT LMBR/SAC 2ND LEVEL MODERATE 10451 [place] [facility] SEDATJ 6 DEN DEN SAME PHYS/QHP 5/>YRS INIT 30 MIN CREATININ 82802 [facility] E OTHER 6 DEN DEN SOURCE DRUG TEST G0479 [facility] 6 DEN DEN PRESUMP;I NSTRUMENT ED CHEMISTRY ANLYZER COLLECTIO 75479 [facility] N VENOUS 6 N N BLOOD COMMUNTIY COMMUNTIY VENIPUNCT HOSPITA HOSPITA URE BLOOD 16680 [facility] COUNT 6 N N COMPLETE COMMUNTIY COMMUNTIY AUTOMATED HOSPITA HOSPITA COMPREHEN 42602 [facility] SIVE 6 N N METABOLIC COMMUNTIY COMMUNTIY PANEL HOSPITA HOSPITA COMPREHEN 62438 [facility] SIVE 6 N N METABOLIC COMMUNTIY [place] [address] [facility] AMYLASE 6 N N [place] [address] [facility] INFUSION 6 N N THERAPY/P COMMUNTIY COMMUNTIY ROPHYLAXI HOSPITA HOSPITA S /DX 1ST TO 1 HR THERAPEUT 57322 [facility] IC 6 N N INJECTION COMMUNTIY COMMUNTIY IV PUSH HOSPITA HOSPITA EACH NEW DRUG INJECTION J2270 [facility] MORPHINE 6 N N SULFATE COMMUNTIY COMMUNTIY UP TO 10 HOSPITA HOSPITA MG BLOOD 12065 [facility] COUNT 6 N N COMPLETE COMMUNTIY COMMUNTIY AUTO&AUTO HOSPITA HOSPITA DIFRNTL WBC BLOOD 79648 [facility] OCCULT 6 N N PEROXIDAS COMMUNTIY COMMUNTIY E ACTV HOSPITA HOSPITA QUAL FECES 1-3 SPEC URNLS DIP 71606 [facility] 6 N N STICK/TAB COMMUNTIY COMMUNTIY LET HOSPITA [place] [address] [facility] INFUSION 6 N N THERAPY COMMUNTIY COMMUNTIY PROPHYLAX HOSPITA HOSPITA IS/DX EA HOUR THROMBOPL 36624 [facility] ASTIN 6 N N TIME COMMUNTIY COMMUNTIY PARTIAL HOSPITA HOSPITA PLASMA/WH OLE BLOOD COLLECTIO 08515 [facility] N VENOUS 6 N N BLOOD COMMUNTIY COMMUNTIY VENIPUNCT HOSPITA HOSPITA URE PROTHROMB 01493 [facility] IN TIME 6 N N COMMUNTI[place] [address] [facility] LIPASE 6 N N COMMUNTIY COMMUNTIY HOSPITA HOSPITA COLLECTIO 43555 [facility] N VENOUS 6 N N BLOOD COMMUNTIY COMMUNTIY VENIPUNCT HOSPITA HOSPITA URE BLOOD 72742 [facility] COUNT 6 N N COMPLETE COMMUNTIY COMMUNTIY AUTOMATED HOSPITA HOSPITA COMPREHEN 68338 [facility] SIVE 6 N N METABOLIC COMMUNTIY COMMUNTIY PANEL HOSPITA HOSPITA RADIOLOGI 17108 [facility] C EXAM 6 N N CHEST 2 COMMUNTIY COMMUNTIY VIEWS HOSPITA HOSPITA FRONTAL&L ATERAL HEMOGLOBI 65844 [facility] 6 Y Y [facility] SALIMA A1C DRUG TEST G0479 [facility] 6 N N PRESUMP;I COMMUNTIY COMMUNTIY NSTRUMENT HOSPITA HOSPITA ED CHEMISTRY ANLYZER COLLECTIO 52245 [facility] N VENOUS 6 N N BLOOD COMMUNTIY COMMUNTIY VENIPUNCT HOSPITA HOSPITA URE IAADIADOO 40527 [place] GRUBBS 6 MEDICAL [place] [address] [facility] [place] FAMIL[place] ABDOMINAL 6 RADIOLOGY RHO REAL TIME W/IMAGE LIMITED ECG 57613 NUBIA NAPOLES ROUTINE 6 NAPOLES, BAL ECG MD,PSC W/LEAST 12 LDS W/I&R PROTHROMB 80220 [facility] IN TIME 6 N N COMMUNTIY COMMUNTIY HOSPITA HOSPITA HEPATITIS 82833 [facility] B CORE 6 N N ANTIBODY COMMUNTIY COMMUNTIY HBCAB HOSPITA HOSPITA TOTAL HEPATITIS 04737 [facility] B SURF 6 N N ANTIBODY COMMUNTIY COMMUNTI[place] [address] [facility] HEPATITIS 6 N N B COMMUNTIY COMMUNTIY SURFACE HOSPITA HOSPITA ANTIGEN DRUG TEST G0479 [facility] 6 N N PRESUMP;I COMMUNTIY COMMUNTIY NSTRUMENT HOSPITA HOSPITA ED CHEMISTRY ANLYZER HEPATITIS 26100 [facility] A 6 N N ANTIBODY COMMUNTIY COMMUNTI[place] [address] [facility] FERRITIN 6 N N COMMUNTIY COMMUNTIY HOSPITA HOSPITA COLLECTIO 30895 [facility] N VENOUS 6 N N BLOOD COMMUNTIY COMMUNTIY VENIPUNCT HOSPITA HOSPITA URE IRON 89128 [facility] BINDING 6 N N CAPACITY COMMUNTIY COMMUNTIY HOSPITA HOSPITA ALPHA-1-A 36306 [facility] NTITRYPSI 6 N N N TOTAL COMMUNTIY COMMUNTIY HOSPITA HOSPITA ALPHA-1-A 26588 [facility] NTITRYPSI 6 N N N COMMUNTIY COMMUNTIY [place] [address] [facility] GLUTAMYLT 6 N N RASE COMMUNTIY COMMUNTIY [place] [address] [facility] IRON 6 N N COMMUNTIY COMMUNTIY HOSPITA HOSPITA COMPREHEN 27718 [facility] SIVE 6 N N METABOLIC COMMUNTIY COMMUNTIY PANEL HOSPITA HOSPITA ALPHA-FET 33370 [facility] OPROTEIN 6 N N SERUM COMMUNTIY COMMUNTIY HOSPITA HOSPITA HFE 23662 [facility] HEMOCHROM 6 N N ATOSIS COMMUNTIY COMMUNTIY GENE ANAL HOSPITA HOSPITA COMMON VARIANTS APOLIPOPR 28012 [facility] OTEIN 6 N N EACH COMMUNTIY [place] [address] [facility] HAPTOGLOB 6 N N IN COMMUNTIY COMMUNTIY QUANTITAT HOSPITA HOSPITA JOSE F BLOOD 33869 [facility] COUNT 6 N N COMPLETE COMMUNTIY COMMUNTIY AUTOMATED HOSPITA HOSPITA DRUG TEST G0479 [facility] 6 N N PRESUMP;I COMMUNTIY COMMUNTIY NSTRUMENT HOSPITA HOSPITA ED CHEMISTRY ANLYZER DRUG 66533 MARY HERNANDEZ SCREENING 6 MEM [facility] COCAINE INC INC DRUG TST G0477 MARY HERNANDEZ PRESUMP;C 6 [facility] PBL BEING INC INC READ DC OPT OBV ONLY THERAPEUT 64497 [facility] IC PX 1/> 5 N N AREAS COMMUNTIY COMMUNTIY EACH 15 HOSPITA HOSPITA MIN EXERCISES THERAPEUT 94901 [facility] IC PX 1/> 5 N N AREAS COMMUNTIY COMMUNTIY EACH 15 [place] [address] [facility] 1/> AREAS 5 N N EACH 15 COMMUNTIY COMMUNTIY MIN HOSPITA HOSPITA NEUROMUSC REEDUCA E-STIM G0283 [facility] 1/> AREAS 5 N N OTH THAN COMMUNTIY COMMUNTIY WND CARE HOSPITA HOSPITA PART TX PLAN TOBACCO 67138 ORTHODOX APRO VIR USE 5 [facility] INTERMEDI ATE 3-10 MINUTES SELF-CARE 00593 [facility] /HOME 5 N N MGMT COMMUNTIY COMMUNTIY TRAINING HOSPITA HOSPITA EACH 15 MINUTES PHYSICAL 73039 [facility] THERAPY 5 N N EVALUATIO COMMUNTIY COMMUNTIY N HOSPITA HOSPITA 62514 [facility] [place] RETROPERI 5 RADIOLOGY RHO TONEAL REAL TIME W/IMAGE LIMITED DUP-SCAN 75088 [facility] ARTL DC 5 N N ABDL/PEL/ COMMUNTIY COMMUNTIY SCROT&/RP HOSPITA HOSPITA R ORGN LMT BLOOD 24311 [facility] COUNT 5 Y Y COMPLETE [facility] HOSPITAL AUTOMATED COMPREHEN 45842 [facility] [address] [facility] PANEL ECG 80489 [facility] ROUTINE 5 MEDICAL ARTIE ECG SERV W/LEAST FOUNDATIO 12 LDS N [place]/I&[place] [address] [facility] [place] SHER[place] JT LOWER 5 RADIOLOGY III EXTREM W/O CONTRAST MATRL COLLECTIO 63212 [facility] N VENOUS 5 N N BLOOD COMMUNTIY COMMUNTIY VENIPUNCT HOSPITA HOSPITA URE COMPREHEN 52059 [facility] SIVE 5 N N METABOLIC COMMUNTIY COMMUNTIY PANEL HOSPITA HOSPITA BLOOD 86659 [facility] COUNT 5 N N COMPLETE COMMUNTIY COMMUNTIY AUTOMATED HOSPITA HOSPITA SEDIMENTA 09317 [facility] TION RATE 5 N N RBC COMMUNTIY COMMUNTIY [place] [address] [facility] BLOOD/URI 5 N N C ACID COMMUNTIY COMMUNTIY HOSPITA HOSPITA RADIOLOGI 34347 [facility] [place] FAMIL[place] C 5 RADIOLOGY RHO EXAMINATI ON KNEE 3 VIEWS RADIOLOGI 70229 [facility] C 5 N N EXAMINATI COMMUNTIY COMMUNTIY ON KNEE HOSPITA HOSPITA 1/2 VIEWS KNEE L1812 [facility] ORTHOSIS 5 TECHNOLOG TECHNOLOG ELASTIC IES INC IES INC WITH JOINTS PREFAB RADIOLOGI 84753 [facility] C EXAM 5 N N BOTH COMMUNTIY COMMUNTIY KNEES HOSPITA HOSPITA STANDING ANTEROPOS T FUNDUS 91640 [facility] PHOTOGRAP 5 JAM JAM HY W/INTERPR ETATION & REPORT MRI 68561 [facility] SPINAL 5 N N CANAL COMMUNTIY COMMUNTIY LUMBAR HOSPITA HOSPITA W/O CONTRAST MATERIAL ANES 51658 [place] [facility] LOWER 5 ANESTHESI I JR EDW INTESTINE A GROUP PS ENDOSCOPY DISTAL DUODENUM COLONOSCO 45713 GASTROENT CASE JUS PY 5 EROLOGY W/BIOPSY AND SINGLE/[place]PATOL [place]IP[place] COLSC FLX 03493 GASTROENT CASE JUS W/RMVL 5 EROLOGY OF TUMOR [place] [address] [facility], SURG 5 [facility] PATHOLOGY GROSS&MONIQUE ROSCOPIC EXAM ALBUMIN 90193 [facility] URINE 5 Y [facility] MIN QUANTIATI VE LIPID 75721 [facility] PANEL 5 Y Y HOSPITAL HOSPITAL CREATININ 94665 [facility] E OTHER 5 Y Y SOURCE [facility] HOSPITAL HEMOGLOBI 26411 [facility] N [address] [facility] SALIMA A1C THER 02447 [facility] PROPH/DX 5 N N NJX IV COMMUNTIY COMMUNTIY PUSH HOSPITA HOSPITA SINGLE/1S T SBST/DRUG DRUG SCR G0434 HERI HAM HERI HAM NOT 5 CHROMATOG RAPHIC; ANY NUMBER PT ENC ANES 21421 [facility] MONIQUE UPPER GI 5 LTH ENDOSCOPY ANESTHESI PROXIMAL A PSC TO DUODENUM GLUCOSE 39562 [facility] 5 Y Y [facility]ICAL [facility]OSPITAL XCPT REAGENT STRIP ESOPHAGOG 06269 [facility] ASTRODUOD [address] [facility] [place] [address] [facility] ABDOMINAL 5 Y Y [facility] TIME W/[place] [address] [facility] [place] ABDOMEN & 5 RADIOLOGY RAY PELVIS W/O CONTRAST MATERIAL COLLECTIO 39794 [facility] N VENOUS 5 N N BLOOD COMMUNTIY COMMUNTIY VENIPUNCT HOSPITA HOSPITA URE COMPREHEN 90621 [facility] SIVE 5 N N METABOLIC COMMUNTIY COMMUNTIY PANEL HOSPITA HOSPITA HEMOGLOBI 81561 [facility] N 5 N N GLYCOSYLA COMMUNTIY COMMUNTIY SALIMA A1C HOSPITA HOSPITA Encounters Encounter Start End Date Code Location Performer Type Date HOSPITAL [facility] - 7 7 N OUTPATIEN COMMUNTIY T HOSPITA OFFICE 36394 [place] 7 7 MEDICAL T VISIT SERV 25 FOUNDATIO MINUTES N EMERGENCY 74031 [facility] 7 7 ANA M DEPARTMEN EMERGENCY T VISIT PHYS HIGH/URGE NT SEVERITY OFFICE 41049 [facility] [place] OUTPATIEN 7 7 NURSE T VISIT PRACTITIO 25 NER GR MINUTES OFFICE 91314 [facility] OUTPATIEN 7 7 Mallika NAPOLES VISIT ,PSC 25 MINUTES EMERGENCY 49174 [facility] 7 7 ANA M DEPARTMEN EMERGENCY T VISIT PHYS HIGH/URGE NT SEVERITY EMERGENCY 63624 [facility] DEPT 7 7 MEDICAL VISIT SERV HIGH FOUNDATIO SEVERITY& N THREAT FUNCJ EMERGENCY 01660 7 7 HEALTHCAR DEPARTMEN E T VISIT HOSPITALS HIGH/URGE NT SEVERITY HOSPITAL - 7 7 [facility]ALTHCAR OUTPATIEN E T HOSPITALS EMERGENCY 16984 [place] [facility] 7 7 MEDICAL JR DEPARTMEN SERV T VISIT FOUNDATIO MODERATE N SEVERITY OFFICE 77391 [place] [facility] [facility] 7 7 ORTHOPEDI T VISIT C 15 ASSOCIAT MINUTES [facility] 7 7 N OUTPATIEN COMMUNTIY T HOSPITA OFFICE 98108 [facility] 7 7 ORTHOPEDI T VISIT C 15 ASSOCIAT MINUTES OFFICE 12180 [facility] [place] OUTPATIEN 7 7 NURSE T VISIT PRACTITIO 15 NER GR MINUTES EMERGENCY 62820 [facility] CELLAROSI 7 7 ANA M - YORBA DEPARTMEN EMERGENCY T VISIT PHYS HIGH/URGE NT SEVERITY EMERGENCY 82813 [facility] [place] 7 7 ANA M E DEPARTMEN EMERGENCY T VISIT PHYS MODERATE SEVERITY EMERGENCY 34996 [facility] CELLAROSI DEPT 7 7 ANA M - YORBA VISIT EMERGENCY HIGH PHYS SEVERITY& THREAT FUNCJ OFFICE 31533 [facility]IA FARRELL OUTPATIEN 7 7 Mallika NAPOLES VISIT ,PSC 25 MINUTES OFFICE 19154 CHERYLE JUNIOR OUTPATIEN 7 7 ORTHOPEDI T VISIT C 15 ASSOCIAT [facility] - 7 7 N [facility] 20966 [facility] 7 7 ORTHOPEDI T VISIT C 15 ASSOCIAT [facility] - 7 7 N OUTPATI COMMUNTI T HOSPITA EMERGENCY 42681 [facility] 7 7 N [facility] MOD[facility]ATE SE[facility]ITY [facility] - 7 7 N [facility] 22027 NUBIA [facility] 7 7 Mallika NAPOLES MD,PSC 25 MINUTES [facility] 7 7 N [facility] 08818 [facility]ON [facility] 7 7 MEDICAL T VISIT SERV 15 FOUNDATIO MINUTES N OFFICE 50212 [facility] 7 7 ORTHOPEDI T VISIT C 15 ASSOCIAT MINUTES OFFICE 26516 NUBIA [facility] 6 6 Mallika NAPOLES MD,PSC 25 MINUTES OFFICE 30761 CHERYLE J[facility]IOR [facility] 6 6 ORTHOPEDI MONIQUE T NEW 45 C MINUTES [facility] UNIVERSIT - 6 6 Y [facility] 62608 S KALINA CAR OUTPATIEN 6 6 NURSE T VISIT PRACTITIO 15 NER GR MINUTES OFFICE 68474 ELVI TOVAR MELISSA [facility] 6 6 T VISIT 15 MINUTES EMERGENCY 48620 [facility] 6 6 ANA M DANAE DEPARTMEN EMERGENCY T VISIT PHYS MODERATE SEVERITY [facility]PITAL [facility] - 6 6 N OUTPATIEN COMMUNTIY T HOSPITA OFFICE 85664 NUBIA FARRELL OUTPATIEN 6 6 ISABELA NAPOLES T VISIT ,PSC 25 MINUTES OFFICE 09361 [facility] OUTPATI[facility] 6 6 MEDICAL MYA T VISIT SERV LAR 15 FOUNDATIO MINUTES N OFFICE 98270 [facility]INA CAR OUTPATIEN 6 6 NURSE T VISIT PRACTITIO 15 NER GR MINUTES [facility]ITAL [facility] 6 6 [facility] 21127 [facility] VENANCIO OUTPATIEN 6 6 YONATHAN NAPOLES T VISIT ,PSC 25 MINUTES [facility] 85061 [facility] KALINA CAR OUTPATIEN 6 6 NURSE T VISIT PRACTITIO 15 NER GR MINUTES [facility] 6 6 N OUTPATIEN COMMUNTIY T HOSPITA OFFICE 15627 [facility] CAR OUTPATIEN 6 6 NURSE T VISIT PRACTITIO 15 NER GR MINUTES EMERGENCY 94509 [facility] 6 6 ANA M - YORBA DEPARTMEN EMERGENCY PAT T VISIT PHYS MODERATE SEVERITY EMERGENCY 75288 [facility] 6 6 N DEPARTMEN COMMUNTIY T VISIT HOSPITA HIGH/URGE NT SEVERITY HOSPITAL [facility] - 6 6 N OUTPATIEN COMMUNTIY T HOSPITA EMERGENCY 99291 [facility] 6 6 N DEPARTMEN COMMUNTIY T VISIT HOSPITA MODERATE SEVERITY EMERGENCY 33912 [facility] 6 6 ANA M MAR DEPARTMEN EMERGENCY T VISIT SERV HIGH/URGE NT SEVERITY HOSPITAL [facility] - 6 6 N OUTPATIEN COMMUNTIY T HOSPITA OFFICE 80810 [facility] 6 6 ISABELA NAPOLES T VISIT ,PSC 25 MINUTES EMERGENCY 24217 [facility] 6 6 N DEPARTMEN COMMUNTIY T VISIT HOSPITA LIMITED/M INOR [facility] - 6 6 N OUTPATIEN COMMUNTIY T HOSPITA EMERGENCY 77494 [facility] 6 6 N DEPARTMEN COMMUNTIY T VISIT [facility] MOD[facility] SE[facility]ITY [facility] - 6 6 N OUTPATIEN COMMUNTIY T HOSPITA EMERGENCY 36572 [facility] CE[facility] 6 6 - YORBA - YORBA [facility] PAT PAT T VISIT MODERATE SEVERITY OFFICE 94207 [facility]INA CAR OUTPATI 6 6 NURSE T VISIT PRACTITIO 15 NER GR MINUTES [facility]30 [facility] ANA M LO TRA VISIT EMERGENCY [facility] SEVERITY& [facility] - 6 6 N OUTPATIEN COMMUNTIY T HOSPITA EMERGENCY 66276 [facility] DEPT 6 6 CARI CARI VISIT HIGH SEVERITY& [facility] - 6 6 N OUTPATIEN COMMUNTIY T HOSPITA EMERGENCY 05110 MARY HERNANDEZ 6 6 SCO SCO DEPARTMEN T VISIT MODERATE SEVERITY [facility] - 6 6 N OUTPATIEN COMMUNTIY T HOSPITA EMERGENCY [id number] [facility] 6 6 N DEPARTMEN COMMUNTIY T VISIT HOSPITA HIGH/URGE NT SEVERITY EMERGENCY 55590 [facility] DEPT 6 6 CARI CARI VISIT HIGH SEVERITY& THREAT [facility] OFFICE 11915 [facility] T VISIT SERV 25 FOUNDATIO MINUTES [facility] - 6 6 N OUTPATIEN COMMUNTIY T [facility] - 6 6 N OUTPATIEN COMMUNTIY T HOSPITA OFFICE 37317 [place] [facility] OUT[facility] 6 6 MEDICAL ARTIE T VISIT SERV 25 FOUNDATIO MINUTES N OFFICE 46638 [place] [facility] [place] 6 6 MEDICAL ARTIE T VISIT SERV 25 FOUNDATIO MINUTES HOSPITAL [facility] - 6 6 Y OUTPATI [facility] - 6 6 N OUTPATIEN COMMUNTIY [facility] - 6 6 N OUTPATIEN COMMUNTIY [facility] - 6 6 N OUTPATIEN COMMUNTIY [facility] - 6 6 N OUTPATIEN COMMUNTIY [facility] MARY - 6 6 MEM HOSP OUTPATIEN [facility] MARY - 6 6 MEM HOSP OUTPATIEN [facility] OFFICE 67417 MARY OUTPATIEN 6 6 MEM HOS[facility] T VISIT INC 10 MINUTES OFFICE 87157 ORTH[facility]OX APRO VIR OUTPATIEN 5 5 [facility] - 5 5 N OUTPATIEN COMMUNTIY HOSPITA OFFICE 22792 [facility] OUTPATIEN 5 5 MEM HOS[facility] T NEW 10 INC MINUTES OFFICE 48334 MAGDIEL PUENTES [facility] OUTPATIEN 5 5 MD ARTURO, T [facility] MARY - 5 5 MEM HOSP OUTPATIEN [facility] - 5 5 N OUTPATIEN COMMUNTIY HOSPITA OFFICE 86211 [place] [facility] [place] 5 5 MEDICAL ARTIE T VISIT SERV 15 FOUNDATIO MINUTES N HOSPITAL UNIVERS[facility] - 5 5 Y OUTPATI HOSPITAL T OFFICE 61635 [facility] [facility] OUTPATIEN 5 5 ARTIE ARTIE T VISIT 25 MINUTES EMERGENCY 42222 [facility] 5 5 N DEPARTMEN COMMUNTIY T VISIT [facility] LOW/MODER SEVERITY EMERGENCY 90886 MARY HERNANDEZ 5 5 SCO SCO DEPARTMEN T VISIT MODERATE SEVERITY HOSPITAL [facility] - 5 5 N [facility] 5 5 N [facility]EN [facility] - 5 5 N OUTPATIEN COMMUNTIY T HOSPITA OFFICE 54292 VERNON MAHAJANS OUTPATIEN 5 5 MEDICAL ARTIE T VISIT SERV 15 FOUNDATIO MINUTES N EMERGENCY 23768 [facility] 5 5 [facility] DEPARTMEN T VISIT MODERATE SEVERITY OFFICE 30904 [facility]ON MAHAJANS OUTPATIEN 5 5 MEDICAL ARTIE T VISIT SERV 15 FOUNDATIO MINUTES N OFFICE 60006 GASTROENT CASE JUS OUTPATIEN 5 5 EROLOGY T VISIT AND 25 HEPATOL MINUTES OFFICE 64580 [facility] [place] OUTPATIEN 5 5 JAM JAM T NEW 30 MINUTES HOSPITAL [facility] - 5 5 N OUTPATIEN COMMUNTIY T [facility] - 5 5 Y OUTPATI HOSPITAL T OFFICE 86597 [place] [facility] [place] 5 5 MEDICAL ARTIE T NEW 30 SERV MINUTES FOUNDATIO N OFFICE 79142 [facility] OUT[facility] 5 5 T VISIT 15 MINUTES HOSPITAL [facility] - 5 5 N OUTPATIEN COMMUNTIY T HOSPITA EMERGENCY 91308 MARY HERNANDEZ 5 5 SCO SCO DEPARTMEN T VISIT HIGH/URGE NT SEVERITY OFFICE 29183 HERI NOGUERA OUTPATIEN 5 5 T NEW 45 MINUTES [facility] - 5 5 Y [facility] - 5 5 Y [facility] T OFFICE 36040 [facility] OUT[facility] 5 5 T VISIT 25 MINUTES EMERGENCY 44386 VASILIY AMANDA DEPT 5 5 DANAE DANAE VISIT HIGH SEVERITY& THREAT FUNCJ OFFICE 22239 [facility] 5 5 T VISIT 15 [facility]UTES [facility] 5 N OUTPATIEN COMMUNTIY T HOSPITA OFFICE 88802 [facility] OUTPATI[facility] 5 5 T NEW 30 MINUTES EMERGENCY 98229 [facility] 5 5 N DEPARTMEN COMMUNTIY T VISIT HOSPITA LOW/MODER SEVERITY EMERGENCY 48605 VASILIY AMANDA 5 5 DANAE DANAE DEPARTMEN T VISIT MODERATE SEVERITY HOSPITAL [facility] - 5 5 N OUTPATIEN COMMUNTIY T HOSPITA
--- OUTSIDE RECORDS SUMMARY | 2017-05-18 07:28 | External Medical Summary Rpt | CCD ---
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 FOUNDATIO R ORGN N COM RADIOLOGI 43839 [place] C 7 MEDICAL MEDICAL EXAMINATI SERV SERV ON CHEST FOUNDATIO FOUNDATIO SINGLE N N VIEW FRONTAL INITIAL 30150 [place] NICKL III INPATIENT 7 MEDICAL CONSULT SERV NEW/ESTAB FOUNDATIO PT [address] [place] [address] [place] BRENT ABDOMINAL 7 MEDICAL REAL SERV TIME FOUNDATIO W/IMAGE N LIMITED SBSQ 41667 [facility] 7 NURSE CARE/DAY PRACTITIO 35 NER GR MINUTES SBSQ 19213 [place] [address] NURSE CARE/DAY PRACTITIO 35 NER GR MINUTES RADIOLOGI 34147 [place] JOVI OLSONI C 7 MEDICAL EXAMINATI SERV ON CHEST FOUNDATIO SINGLE N VIEW FRONTAL CRITICAL 14042 [facility] 7 NURSE ILL/INJUR PRACTITIO ED NER GR PATIENT INIT 30-74 MIN RADIOLOGI 94297 [place] PRASANNA C 7 MEDICAL EXAMINATI SERV ON CHEST FOUNDATIO SINGLE N VIEW FRONTAL RADEX 82055 [place] SARA ABDOMEN 1 7 MEDICAL SERV ANTEROPOS FOUNDATIO TERIOR N VIEW RADIOLOGI 91586 [place] NANCY C 7 MEDICAL EXAMINATI SERV ON CHEST FOUNDATIO SINGLE N VIEW FRONTAL CRITICAL 58567 [facility] 7 NURSE ILL/INJUR PRACTITIO ED NER GR PATIENT INIT 30-74 MIN RADIOLOGI 81594 [place] PRASANNA C 7 MEDICAL EXAMINATI SERV ON CHEST FOUNDATIO SINGLE N VIEW FRONTAL RADIOLOGI 00519 [place] PRASANNA C 7 MEDICAL EXAMINATI SERV ON CHEST FOUNDATIO SINGLE N VIEW FRONTAL RADIOLOGI 98362 [place] DUGGAN C 7 MEDICAL EXAMINATI SERV ON CHEST FOUNDATIO SINGLE N VIEW FRONTAL ECG 25284 [place] ACACIA ROUTINE 7 MEDICAL ECG SERV W/LEAST FOUNDATIO 12 LDS N I&R ONLY RADIOLOGI 25439 [place] NANCY C 7 MEDICAL EXAMINATI SERV ON CHEST FOUNDATIO SINGLE N VIEW FRONTAL CRITICAL 40235 [facility] 7 NURSE ILL/INJUR PRACTITIO ED NER GR PATIENT INIT 30-74 MIN RADIOLOGI 54609 [place] NANCY C 7 MEDICAL EXAMINATI SERV ON CHEST FOUNDATIO SINGLE N VIEW FRONTAL RADIOLOGI 44805 [place] URBAN C 7 MEDICAL EXAMINATI SERV ON CHEST FOUNDATIO SINGLE N VIEW FRONTAL CRITICAL 94052 [facility] 7 NURSE ILL/INJUR PRACTITIO ED NER GR PATIENT INIT 30-74 MIN RADIOLOGI 18607 [place] URBAN C 7 MEDICAL EXAMINATI SERV ON CHEST FOUNDATIO SINGLE N VIEW FRONTAL RADIOLOGI 20261 [place] KATIA C 7 MEDICAL EXAMINATI SERV [place] [address] [place] NANCY ANGIOGRAP 7 MEDICAL HY CHEST SERV W/CONTRAS FOUNDATIO T/NONCONT N RAST ANES 02112 [place] DORETHA THORACOTO 7 MEDICAL JR MY & SERVICES THORACOSC OPY W/1 LUNG VNTJ INSJ 33895 [facility] SOFYA NON-TUNNE 7 NURSE LED PRACTITIO CENTRAL NER GR VENOUS CATH AGE 5 YR/> THORACOSC 45523 [place] REG OPY RMVL 7 MEDICAL INTRAPLEU SERV RAL FOUNDATIO FB/FIBRIN N DEPOSIT RADIOLOGI 14324 [place] NANCY C 7 MEDICAL EXAMINATI SERV ON CHEST FOUNDATIO SINGLE N VIEW FRONTAL RADIOLOGI 29088 [place] PRASANNA Whitt 7 MEDICAL EXAMINATI SERV ON CHEST FOUNDATIO SINGLE N VIEW FRONTAL ECHO 89690 [facility] R-T 7 MEDICAL 2D SERV W/WOM-MOD FOUNDATIO E COMPL N SPEC&COLR D [facility] 43503 [facility] SOFYA W/SILVIANCL 7 NURSE ALVEOLAR PRACTITIO LAVAGE NER GR CYTP 36940 [facility] 7 Y OF [facility] SMEARS & HOSPI INTERPRET ATION SBSQ 88434 [facility] 7 NURSE CARE/DAY PRACTITIO [address] THORAX 23747 [place] KATIA W/O 7 MEDICAL CONTRAST SERV MATERIAL FOUNDATIO N ARTL 26232 [place] ANUEL CATHJ/CAN 7 MEDICAL NULJ SERV MNTR/ABBASI FOUNDATIO SFUSION N SPX PRQ RADIOLOGI 26742 [place] KATIA C 7 MEDICAL EXAMINATI SERV ON CHEST FOUNDATIO SINGLE N VIEW FRONTAL RADIOLOGI 58705 [place] KATIA C 7 MEDICAL EXAMINATI SERV ON CHEST FOUNDATIO SINGLE N VIEW FRONTAL SBSQ 96807 [facility] 7 MEDICAL CARE/DAY SERV 25 FOUNDATIO MINUTES N SBSQ 10685 [facility] 7 MEDICAL CARE/DAY SERV 15 FOUNDATIO MINUTES N RADEX 30753 [place] SARA ABDOMEN 1 7 MEDICAL SERV ANTEROPOS FOUNDATIO TERIOR N VIEW RADIOLOGI 80748 [place] DENMARK C 7 MEDICAL EXAMINATI SERV [place] F[place] [address] [place] NICHOL THORACIC 7 MEDICAL SPINE W/O SERV CONTRAST FOUNDATIO MATERIAL N RADIOLOGI 68500 [place] NANCY C 7 MEDICAL EXAMINATI SERV ON CHEST FOUNDATIO SINGLE N VIEW FRONTAL AMB A0431 [facility] 7 METHODS METHODS CONVNTION [facility] AIR SRVC TRANSPORT [address] INITIAL 92357 [facility] 7 MEDICAL CARE/DAY SERV [address] [place] [address] [place] N[place]OL ANGIOGRAP 7 MEDICAL HY CHEST SERV W/CONTRAS [place]OUNDAT[place] T/[place] [address] [place] N[place]OL CERVICAL 7 MEDICAL SPINE W/[place] [address] [place] MERHAR ANGIOGRAP 7 MEDICAL HY NECK SERV W/CONTRAS FOUNDATIO T/NONCONT N RAST [place] LUMBAR 39317 [place] NICHOL SPINE 7 MEDICAL W/[place] [address] [place] MERHAR MAXILLOFA 7 MEDICAL CIAL W/[place] [address] VERNON MERHAR ANGIOGRAP 7 MEDICAL HY HEAD SERV W/CONTRAS FOUNDAT[place] T/[place] [address] [facility]ERNON SARMIENTOER ABDOMEN & 7 MEDICAL PELVIS SERV W/CONTRAS FOUNDATIO T N MATERIAL MRI ANY 27543 [facility] JT UPPER 7 N N EXTREMITY COMMUNTIY COMMUNTIY W/O HOSPITA HOSPITA CONTRAST MATRL RADEX HIP 23536 [facility] [place] FAMILIA 7 RADIOLOGY UNILATERA L WITH PELVIS 2-3 VIEWS SIMPLE 78670 [facility] REPAIR 7 ANA M E SCALP/NEC EMERGENCY K/AX/SILVERIO PHYS T/TRUNK 2.5CM/< AMB A0427 JAME JAME SERVICE 7 FAYETTE FAYETTE ALS URBAN URBAN EMERGENCY [place] [address] [facility] [place] BEEBE HEAD/BRAI 7 RADIOLOGY N W/O CONTRAST MATERIAL CT LUMBAR 05166 [facility] [place] BEEBE SPINE 7 RADIOLOGY W/O CONTRAST MATERIAL ECG 11842 [facility] CELLAROSI ROUTINE 7 ANA M - YORBA ECG EMERGENCY W/LEAST PHYS 12 LDS I&R ONLY GROUND A0425 JAME JAME MILEAGE 7 FAYETTE FAYETTE PER URBAN [place] [address] [facility] [place] BEEBE CERVICAL 7 RADIOLOGY SPINE W/O CONTRAST [place] 44687 NUBIA FARRELL SAME 7 NAPOLES, PHYS/QHP ,PSC INITIAL 15 MINS 5/> YRS DSTR 08393 NUBIA FARRELL NROLYTC 7 ALESIA NAPOLES MD,PSC [place] FCT ADDL LMBR/SACR AL DSTR 24057 NUBIA FARRELL NROLYTC 7 ALESIA NAPOLES MD,PSC [place] FCT SNGL LMBR/SACR AL DRUG TEST 87827 NUBIA FARRELL PRSMV 7 ORA NAPOLES MD,PSC CHEMISTRY ANALYZERS ARTHROCEN 80019 [place] J[place] TESIS 7 ORTHOPEDI ASPIR&/IN C J MAJOR ASSOCIAT JT/BURSA W/O US INJECTION J1030 [facility] JUNIOR 7 ORTHOPEDI METHYLPRE C DNISOLONE ASSOCIAT ACETATE 40 MG RADEX 56879 [facility] JUNIOR SHOULDER 7 ORTHOPEDI COMPLETE C MINIMUM 2 ASSOCIAT VIEWS COLLECTIO 59584 [facility] N VENOUS 7 N N BLOOD COMMUNTIY COMMUNTIY VENIPUNCT HOSPITA HOSPITA URE IADNA 65528 [facility] HEPATITIS 7 N N C QUANT COMMUNTIY COMMUNTIY & REVERSE HOSPITA HOSPITA TRANSCRIP TION MOD SED 01445 NUBIA FARRELL SAME 7 LOIDA NAPOLES/QROGERIO ONOFRE,PSC INITIAL 15 MINS 5/> YRS DSTR 25093 NUBIA FARRELL NROLYTC 7 ALESIA NAPOLES MD,PSC [place] FCT ADDL LMBR/SACR AL DSTR 84905 NUBIA FARRELL NROLYTC 7 ALESIA NAPOLES MD,PSC [place] FCT SNGL LMBR/SACR [place] ANY [address]28 [facility] JT LOWER 7 N N EXTREM COMMUNTIY COMMUNTIY W/O HOSP[place] [address] NUBIA CRAFT PHOSPHORU 7 Cassy NAPOLES MD,PSC INORGANIC BILIRUBIN 15814 NUBIA CRAFT DIRECT 7 MD DONY,PSC COLLECTIO 09918 NUBIA CRAFT N VENOUS 7 ARIS NAPOLES MD,PSC VENIPUNCT URE COMPREHEN 46081 NUBIA CRAFT SIVE 7 [place] N[place] [address] NUBIA CRAFT GLUTAMYLT 7 SOUTH NAPOLES MD,PSC GAMMA BLOOD 44790 NUBIA CRAFT COUNT 7 DAVE NAPOLES MD,PSC AUTO&[place] [address] [facility] ABDOMINAL 7 N N REAL COMMUNTIY COMMUNTIY TIME HOSPITA HOSPITA W/IMAGE LIMITED RADEX HIP 91667 [facility] 7 ORTHOPEDI UNILATERA C L WITH ASSOCIAT PELVIS 2-3 VIEWS RADIOLOGI 21489 [facility] PATTERSON C 7 ORTHOPEDI EXAMINATI C ON KNEE 3 ASSOCIAT VIEWS DRUG TEST G0479 NUBIA CRAFT 6 NAPOLES, PRESUMP;I ,PSC NSTRUMENT ED CHEMISTRY ANLYZER CANE E0105 J & L J & L QUAD/3-AK 6 HOME HOME VANDANA ALL [facility]ICAL MEDICAL MATL EQUIPMENT EQUIPMENT ADJUSTBL/ FIX W/TIPS KO ELAST L1820 [facility] BLUEGRASS W/CONDYLR 6 BRACING, BRACING, PADS&JNT INC INC PRFAB INCL FIT&ADJ RADIOLOGI 48565 [facility] Whitt EXAM 6 ORTHOPEDI MONIQUE KNEE C COMPLETE ASSOCIAT 4/MORE VIEWS INJECTION J1030 [facility] JUNIOR 6 ORTHOPEDI MONIQUE METHYLPRE C DNISOLONE ASSOCIAT ACETATE 40 MG ARTHROCEN 47943 [facility] J[facility] TESIS 6 ORTHOPEDI MONIQUE ASPIR&/IN C J MAJOR ASSOCIAT JT/BURSA W/O US COMPREHEN [address] [place] [address] Y Y [facility] PANEL HEMOGLOBI [address] SALIMA A1C IM ADM 64633 [facility] KALINA CAR PRQ ID 6 NURSE SUBQ/IM PRACTITIO NJXS 1 NER GR VACCINE IIV4 VACC 48454 [facility] KALINA CAR PRESRV 6 NURSE FREE 0.5 PRACTITIO ML FOR IM NER GR USE LIPID [address]0945 [place] [address] Y [facility]OSPITAL COMPUTERI 44373 ELVI TORRES ZED 6 OPHTHALMI C IMAGING OPTIC NERVE VISUAL 66362 ELVI TOVAR MELISSA FIELD XM 6 UNI/BI W/INTERP EXTENDED EXAM DRAINAGE 90038 [facility] SCROTAL 6 N N WALL COMMUNTIY COMMUNTIY ABSCESS HOSPITA HOSPITA INJECTION J2001 [facility] 6 N N LIDOCAINE COMMUNTIY COMMUNTIY HCL HOSPITA HOSPITA INTRAVENO US INFUS 10 MG INCISION 46617 [facility] & 6 ANA M DANAE DRAINAGE EMERGENCY ABSCESS PHYS COMPLICAT ED/MULTIP LE DRUG TEST G0479 ISABELA HANNAH PRESUMP;Radha ONOFRE,PSC NSTRUMENT ED CHEMISTRY ANLYZER COLLECTIO 77831 NUBIA FARRELL N VENOUS 6 ISABELA NAPOLES MD,[facility] VENIPUNCT URE BILIRUBIN 40746 NUBIA FARRELL DIRECT 6 ISABELA NAPOLES MD,[place] [address] NUBIA FARRELL PHOSPHORU 6 ISABELA NAPOLES MD,PSC INORGANIC BLOOD 85554 NUBIA FARRELL COUNT 6 ISABELA NAPOLES MD,PSC AUTO&[place] [address] NUBIA FARRELL GLUTAMYLT 6 ISABELA NAPOLES MD,PSC GAMMA COMPREHEN 51028 NUBIA FARRELL SIVE 6 ISABELA NAPOLES METABOLIC ,PSC PANEL REMOVAL 71121 [facility] KALINA CAR IMPACTED 6 NURSE CERUMEN PRACTITIO IRRIGATIO NER GR N/LVG UNILAT IADNA 30566 [facility] HEPATITIS 6 N N C QUANT COMMUNTIY COMMUNTIY & REVERSE HOSPITA HOSPITA TRANSCRIP TION COLLECTIO 04672 [facility] N VENOUS 6 N N BLOOD COMMUNTIY COMMUNTIY VENIPUNCT HOSPITA HOSPITA URE COMPREHEN 11919 [facility] SIVE 6 N N METABOLIC COMMUNTIY COMMUNTIY PANEL HOSPITA HOSPITA BLOOD 69284 [facility] COUNT 6 N N COMPLETE COMMUNTIY COMMUNTIY AUTO&AUTO HOSPITA HOSPITA DIFRNTL WBC DRUG TEST G0479 NUBIA CRAFT 6 YONATHAN NAPOLES PRESUMP;Radha ONOFRE,PSC NSTRUMENT ED CHEMISTRY ANLYZER SHVG SKIN 04926 [facility] KALINA CAR LESION 1 6 NURSE PRACTITIO TRUNK/ARM NER GR /LEG DIAM 0.6-1[place] [address] [facility] SURG 6 Y OF VIR PATHOLOGY [place] [facility] GROSS&MONIQUE ROSCOPIC EXAM IADNA 31465 [facility] HEPATITIS 6 N N C QUANT COMMUNTIY COMMUNTIY & REVERSE HOSPITA HOSPITA TRANSCRIP TION COLLECTIO 48020 [facility] N VENOUS 6 N N BLOOD COMMUNTIY COMMUNTIY VENIPUNCT HOSPITA HOSPITA URE BLOOD 13199 [facility] COUNT 6 N N COMPLETE COMMUNTIY COMMUNTIY AUTOMATED HOSPITA HOSPITA COMPREHEN 52480 [facility] SIVE 6 N N METABOLIC COMMUNTIY COMMUNTIY PANEL HOSPITA HOSPITA INCISION 65904 [facility] & 6 N N DRAINAGE COMMUNTIY COMMUNTIY ABSCESS HOSPITA HOSPITA SIMPLE/SI NGLE INCISION 20056 [facility] CELLAROSI & 6 ANA M - YORBA DRAINAGE EMERGENCY PAT ABSCESS PHYS COMPLICAT ED/MULTIP LE DSTR 22615 NUBIA PEÑAP NROLYTC 6 YONATHAN NAPOLES MD,PSC [place] FCT ADDL LMBR/SACR AL DSTR [address] [address] NR[address]YTC [address] AGNT SURGERY SURGERY [place] CENTER CENTER FCT SNGL LMBR/SACR AL MODERATE 36661 NUBIA PEÑAP SEDATJ 6 YONATHAN NAPOLES SAME, MD,PSC PHYS/QHP 5/>YRS INIT 30 MIN RADEX 18975 [facility] RIBS UNI 6 N N W/POSTERO COMMUNTIY COMMUNTIY ANT CH HOSPITA HOSPITA MINIMUM 3 VIEWS DSTR [address] AGNT SURGERY SURGERY [facility] CENTER DERMOTT FCT SNGL LMBR/SACR AL LUMB L0642 NUBIA ALVARADORIP ORTHOS 6 YONATHAN NAPOLES MD,PSC CTRL RIGD ANT POST PANELS MODERATE 06735 NUBIA CRAFT SEDATJ 6 YONATHAN NAPOLES SAME, MD,PSC PHYS/QHP 5/>YRS INIT 30 MIN DSTR 59204 NUBIA ALVARADORIP NROLYTC 6 YONATHAN NAPOLES MD,PSC [place] FCT ADDL LMBR/SACR AL DRUG TEST G0479 ISABELA HANNAH PRESUMP;I ,PSC NSTRUMENT ED CHEMISTRY ANLYZER COLLECTIO 94766 NUBIA FARRELL N VENOUS 6 ISABELA NAPOLES MD,[place] [address] NUBIA FARRELL PHOSPHORU 6 ISABELA NAPOLES MD,PSC INORGANIC BILIRUBIN 54475 NUBIA FARRELL DIRECT 6 ISABELA NAPOLES MD,[place] [address] NUBIA FARRELL GLUTAMYLT 6 ISABELA NAPOLES MD,PSC GAMMA COMPREHEN 62828 NUBIA FARRELL SIVE 6 ISABELA NAPOLES METABOLIC ,PSC PANEL BLOOD 70809 NUBIA FARRELL COUNT 6 ISABELA NAPOLES MD,PSC AUTO&AUTO DIFRNTL WBC RADEX 85198 [facility] [place] SHERITA FOOT 6 RADIOLOGY III COMPLETE MINIMUM 3 VIEWS GROUND A0425 [facility] MILEAGE 6 N-DENILSON Danish-DENILSON PER CO EMS CO EMS STATUTE MILE AMB A0427 [facility] SERVICE 6 N-DENILSON N-DENILSON ALS CO EMS CO EMS [place]GENC[place] [address] [facility] [place] SCALF CARLIE HEAD/BRAI 6 RADIOLOGY N W/O CONTRAST MATERIAL CRITICAL 09300 [facility] 6 ANA M HUG ILL/INJUR PHYSICIAN ED SERVI PATIENT INIT 30-74 MIN BLOOD 43798 [facility] COUNT 6 N N COMPLETE COMMUNTIY COMMUNTIY AUTO&AUTO HOSP[place] [address] [facility] TROPONIN 6 N N QUANTITAT COMMUNTIY COMMUNTIY JOSE F HOSPITA HOSPITA GLUC BLD 75516 [facility] GLUC MNTR 6 N N DEV COMMUNTIY COMMUNTIY CLEARED HOSPITA HOSPITA FDA SPEC HOME USE COMPREHEN 82088 [facility] SIVE 6 N N METABOLIC COMMUNTIY [place] [address] [facility] INFUSION 6 N N HYDRATION COMMUNTIY COMMUNTIY EACH HOSP[place] [address] [facility] AMMONIA 6 N N COMMUNTIY COMMUNTIY HOSPITA HOSPITA RADIOLOGI 73900 [facility] [place] FAMILIA C 6 RADIOLOGY RHO EXAMINATI ON CHEST SINGLE VIEW FRONTAL INFUSION J7030 [facility] NORMAL 6 N N SALINE COMMUNTIY COMMUNTIY SOLUTION HOSPITA HOSPITA 1000 CC GROUND A0425 [facility] MILEAGE 6 N-DENILSON CRUZ PER CO EMS CO EMS STATUTE MILE AMBULANCE A0429 [facility] SERVICE 6 N-DENILSON CRUZ BLS CO EMS CO EMS EMERGENCY TRANSPORT COLLECTIO 30268 [facility] N VENOUS 6 N N BLOOD COMMUNTIY COMMUNTIY VENIPUNCT HOSPITA HOSPITA URE KETONE 28176 [facility] BODIES 6 N N SERUM COMMUNTIY COMMUNTIY QUALITATI HOSPITA HOSPITA VE ECG 52578 [facility] ROUTINE 6 N N ECG COMMUNTIY COMMUNTIY W/LEAST HOSPITA HOSPITA 12 LDS TRCG ONLY W/O I&R THER 69988 [facility] PROPH/DX 6 N N NJX IV COMMUNTIY COMMUNTIY PUSH HOSPITA HOSPITA SINGLE/1S T SBST/DRUG NJX 30953 [facility] DX/THER 6 DEN DEN AGT PVRT FACET JT LMBR/SAC 1 LEVEL NJX 16958 [facility] DX/THER 6 DEN DEN AGT PVRT FACET JT LMBR/SAC 2ND LEVEL MODERATE 07529 HERTELRI [facility] SEDATJ 6 DEN DEN SAME PHYS/QHP 5/>YRS INIT 30 MIN CREATININ 51448 [facility] E OTHER 6 DEN DEN SOURCE DRUG TEST G0479 [facility] 6 DEN DEN PRESUMP;I NSTRUMENT ED CHEMISTRY ANLYZER COLLECTIO 39416 [facility] N VENOUS 6 N N BLOOD COMMUNTIY COMMUNTIY VENIPUNCT HOSPITA HOSPITA URE BLOOD 18377 [facility] COUNT 6 N N COMPLETE COMMUNTIY COMMUNTIY AUTOMATED HOSPITA HOSPITA COMPREHEN 98018 [facility] SIVE 6 N N METABOLIC COMMUNTIY COMMUNTIY PANEL HOSPITA HOSPITA COMPREHEN 20044 [facility] SIVE 6 N N METABOLIC COMMUNTIY COMM[place] [address] [facility] AMYLASE 6 N [place] [address] [facility] INFUSION 6 N N THERAPY/P COMMUNTIY COMMUNTIY ROPHYLAXI HOSPITA HOSPITA S /DX 1ST TO 1 HR THERAPEUT 65725 [facility] IC 6 N N INJECTION COMMUNTIY COMMUNTIY IV PUSH HOSPITA HOSPITA EACH NEW DRUG INJECTION J2270 [facility] MORPHINE 6 N N SULFATE COMMUNTIY COMMUNTIY UP TO 10 HOSPITA HOSPITA MG BLOOD 35716 [facility] COUNT 6 N N COMPLETE COMMUNTIY COMMUNTIY AUTO&AUTO HOSPITA HOSPITA DIFRNTL WBC BLOOD 75192 [facility] OCCULT 6 N N PEROXIDAS COMMUNTIY COMMUNTIY E ACTV HOSPITA HOSPITA QUAL FECES 1-3 SPEC URNLS DIP 82650 [facility] 6 N N STICK/TAB COMMUNTIY COMMUNTIY LET HOSPITA [place] [address] [facility] INFUSION 6 N N THERAPY COMMUNTIY COMMUNTIY PROPHYLAX HOSPITA HOSPITA IS/DX EA HOUR THROMBOPL 00758 [facility] ASTIN 6 N N TIME COMMUNTIY COMMUNTIY PARTIAL HOSPITA HOSPITA PLASMA/WH OLE BLOOD COLLECTIO 97998 [facility] N VENOUS 6 N N BLOOD COMMUNTIY COMMUNTIY VENIPUNCT HOSPITA HOSPITA URE PROTHROMB 68807 [facility] IN TIME 6 N N COMMUNTIY [place] [address] [facility] LIPASE 6 N N COMMUNTIY COMMUNTIY HOSPITA HOSPITA COLLECTIO 23939 [facility] N VENOUS 6 N N BLOOD COMMUNTIY COMMUNTIY VENIPUNCT HOSPITA HOSPITA URE BLOOD 05481 [facility] COUNT 6 N N COMPLETE COMMUNTIY COMMUNTIY AUTOMATED HOSPITA HOSPITA COMPREHEN 80295 [facility] SIVE 6 N N METABOLIC COMMUNTIY COMMUNTIY PANEL HOSPITA HOSPITA RADIOLOGI 69212 [facility] C EXAM 6 N N CHEST 2 COMMUNTIY COMMUNTIY VIEWS HOSPITA HOSPITA FRONTAL&L ATERAL HEMOGLOBI 94184 [facility] 6 Y Y [facility] A1C DRUG TEST G0479 [facility] 6 N N PRESUMP;I COMMUNTIY COMMUNTIY NSTRUMENT HOSPITA HOSPITA ED CHEMISTRY ANLYZER COLLECTIO 67597 [facility] N VENOUS 6 N N BLOOD COMMUNTIY COMMUNTIY VENIPUNCT HOSPITA HOSPITA URE IAADIADOO 32365 [place] [facility] 6 [place]ICAL [place] [address] [facility] [place] [facility] ABDOMINAL 6 RADIOLOGY RHO REAL TIME W/IMAGE LIMITED ECG 29327 [facility] [place] ROUTINE 6 [place], BAL ECG MD,PSC W/LEAST 12 LDS W/I&R PROTHROMB 46118 [facility] IN TIME 6 N N COMMUNTIY COMMUNTIY HOSPITA HOSPITA HEPATITIS 80760 [facility] B CORE 6 N N ANTIBODY COMMUNTIY COMMUNTIY HBCAB HOSPITA HOSPITA TOTAL HEPATITIS 96230 [facility] B SURF 6 N N ANTIBODY COMMUNTIY COMMUNTI[place] [address] [facility] HEPATITIS 6 N N B COMMUNTIY COMMUNTIY SURFACE HOSPITA HOSPITA ANTIGEN DRUG TEST G0479 [facility] 6 N N PRESUMP;I COMMUNTIY COMMUNTIY NSTRUMENT HOSPITA HOSPITA ED CHEMISTRY ANLYZER HEPATITIS 48291 [facility] A 6 N N ANTIBODY COMMUNTIY COMMUNTIY [place] [address] [facility] FERRITIN 6 N N COMMUNTIY COMMUNTIY HOSPITA HOSPITA COLLECTIO 78474 [facility] N VENOUS 6 N N BLOOD COMMUNTIY COMMUNTIY VENIPUNCT HOSPITA HOSPITA URE IRON 24247 [facility] BINDING 6 N N CAPACITY COMMUNTIY COMMUNTIY HOSPITA HOSPITA ALPHA-1-A 83312 [facility] NTITRYPSI 6 N N N TOTAL COMMUNTIY COMMUNTIY HOSPITA HOSPITA ALPHA-1-A 58234 [facility] NTITRYPSI 6 N N N COMMUNTIY COMMUNTI[place] [address] [facility] GLUTAMYLT 6 N N RASE COMMUNTIY COMMUNTIY [place] [address] [facility] IRON 6 N N COMMUNTIY COMMUNTIY HOSPITA HOSPITA COMPREHEN 93176 [facility] SIVE 6 N N METABOLIC COMMUNTIY COMMUNTIY PANEL HOSPITA HOSPITA ALPHA-FET 91007 [facility] OPROTEIN 6 N N SERUM COMMUNTIY COMMUNTIY HOSPITA HOSPITA HFE 41655 [facility] HEMOCHROM 6 N N ATOSIS COMMUNTIY COMMUNTIY GENE ANAL HOSPITA HOSPITA COMMON VARIANTS APOLIPOPR 53697 [facility] OTEIN 6 N N EACH COMMUNTIY [place] [address] [facility] HAPTOGLOB 6 N N IN COMMUNTIY COMMUNTIY QUANTITAT HOSPITA HOSPITA JOSE F BLOOD 97953 [facility] COUNT 6 N N COMPLETE COMMUNTIY COMMUNTIY AUTOMATED HOSPITA HOSPITA DRUG TEST G0479 [facility] 6 N N PRESUMP;I COMMUNTIY COMMUNTIY NSTRUMENT HOSPITA HOSPITA ED CHEMISTRY ANLYZER DRUG 80385 [facility] HERNANDEZ SCREENING 6 [facility] COC[employer] [employer] [facility] DRUG TST G0477 M[facility] HERNANDEZ PRESUMP;C 6 [facility] PBL [facility] READ DC OPT OBV ONLY THERAPEUT 91970 [facility] IC PX 1/> 5 N N AREAS COMMUNTIY COMMUNTIY EACH 15 HOSPITA HOSPITA MIN EXERCISES THERAPEUT 44307 [facility] IC PX 1/> 5 N N AREAS COMMUNTIY COMMUNTIY EACH 15 [place] [address] [facility] 1/> AREAS 5 N N EACH 15 COMMUNTIY COMMUNTIY MIN HOSPITA HOSPITA NEUROMUSC REEDUCA E-STIM [id number] [facility] 1/> AREAS 5 N N OTH THAN COMMUNTIY COMMUNTIY WND CARE HOSPITA HOSPITA PART TX PLAN TOBACCO 53007 [facility] APRO VIR USE [facility] INTERMEDI ATE 3-10 MINUTES SELF-CARE 28575 [facility] /HOME 5 N N MGMT COMMUNTIY COMMUNTIY TRAINING HOSPITA HOSPITA EACH 15 MINUTES PHYSICAL 80786 [facility] THERAPY 5 N N EVALUATIO COMMUNTIY COMMUNTIY N HOSPITA HOSPITA 08233 [facility] [place] [facility] RETROPERI 5 RADIOLOGY RHO TONEAL REAL TIME W/IMAGE LIMITED DUP-SCAN 65081 [facility] ARTL DC 5 N N ABDL/PEL/ COMMUNTIY COMMUNTIY SCROT&/RP HOSPITA HOSPITA R ORGN LMT BLOOD 72638 [facility] COUNT 5 Y Y COMPLETE [facility] AUT[facility]HEN [facility]9 [facility] PANEL ECG 69257 [facility] GRUB[facility] ROUTINE 5 MEDICAL ARTIE ECG SERV W/LEAST FOUNDATIO 12 LDS N W/I&R MRI ANY [address] [facility] [place] SHERITA JT LOWER 5 RADIOLOGY III EXTREM W/O CONTRAST MATRL COLLECTIO 81538 [facility] N VENOUS 5 N N BLOOD COMMUNTIY COMMUNTIY VENIPUNCT HOSPITA HOSPITA URE COMPREHEN 10152 [facility] SIVE 5 N N METABOLIC COMMUNTIY COMMUNTIY PANEL HOSPITA HOSPITA BLOOD 48038 [facility] COUNT 5 N N COMPLETE COMMUNTIY COMMUNTIY AUTOMATED HOSPITA HOSPITA SEDIMENTA 67995 [facility] TION RATE 5 N N RBC COMMUNTIY COMMUNTI[place] [address] [facility] BLOOD/URI 5 N N C ACID COMMUNTIY COMMUNTIY HOSPITA HOSPITA RADIOLOGI 65537 [facility] [place] FAMILIA C 5 RADIOLOGY RHO EXAMINATI ON KNEE 3 VIEWS RADIOLOGI 46552 [facility] C 5 N N EXAMINATI COMMUNTIY COMMUNTIY ON KNEE HOSPITA HOSPITA 1/2 VIEWS KNEE L1812 [facility]ED ADVANCED ORTHOSIS 5 TECHNOLOG TECHNOLOG ELASTIC IES INC IES INC WITH JOINTS PREFAB RADIOLOGI 64841 [facility] C EXAM 5 N N BOTH COMMUNTIY COMMUNTIY KNEES HOSPITA HOSPITA STANDING ANTEROPOS T FUNDUS 79903 [facility] [place] PHOTOGRAP 5 JAM JAM HY W/INTERPR ETATION & REPORT MRI 76589 [facility] SPINAL 5 N N CANAL COMMUNTIY COMMUNTIY LUMBAR HOSPITA HOSPITA W/O CONTRAST MATERIAL ANES 28518 [place] ZIEMBROS[facility] LOWER 5 ANESTHESI I JR EDW INTESTINE A GROUP PS ENDOSCOPY DISTAL DUODENUM COLONOSCO 98035 GASTROENT CASE JUS PY 5 EROLOGY W/BIOPSY AND SINGLE/MU HEPATOL LTIPLE COLSC FLX 87856 GASTROENT CASE JUS W/RMVL 5 EROLOGY OF TUMOR [place] POL[place] [address] [facility], SURG 5 [facility] PATHOLOGY GROSS&MONIQUE ROSCOPIC EXAM ALBUMIN 37083 [facility] URINE 5 Y [facility] MIN QUANTIATI VE LIPID 00930 [facility] PANEL 5 Y Y HOSPITAL HOSPITAL CREATININ 32567 [facility] E OTHER 5 Y Y [facility] HOSPITAL HEMOGLOBI 20701 [facility] N 5 Y Y GLYCOSYLA [facility] SALIMA A1C THER 10438 [facility] PROPH/DX 5 N N NJX IV COMMUNTIY COMMUNTIY PUSH HOSPITA HOSPITA SINGLE/1S T SBST/DRUG DRUG SCR G0434 HERI HAM HERI HAM NOT 5 CHROMATOG RAPHIC; ANY NUMBER PT ENC ANES 38668 [facility]UNDY MONIQUE UPPER GI 5 LTH ENDOSCOPY ANESTHESI PROXIMAL A PSC TO DUODENUM GLUCOSE 90629 [facility] 5 Y Y [facility] XCPT REAGENT STRIP ESOPHAGOG 83462 [facility] ASTRODUOD 5 Y Y [facility] [address] [facility] ABDOMINAL [address] [facility] TIME W/[place] [address] [facility] [place] WAG[place] ABDOMEN & 5 RADIOLOGY RAY PELVIS W/O CONTRAST MATERIAL COLLECTIO 44555 [facility] N VENOUS 5 N N BLOOD COMMUNTIY COMMUNTIY VENIPUNCT HOSPITA HOSPITA URE COMPREHEN 18580 [facility] SIVE 5 N N METABOLIC COMMUNTIY COMMUNTIY PANEL HOSPITA HOSPITA HEMOGLOBI 96439 [facility] N 5 N N GLYCOSYLA COMMUNTIY COMMUNTIY SALIMA A1C HOSPITA HOSPITA Encounters Encounter Start End Date Code Location Performer Type Date HOSPITAL [facility] - 7 7 N OUTPATIEN COMMUNTIY T HOSPITA OFFICE 12380 [place] [facility] 7 7 MEDICAL T VISIT SERV 25 FOUNDATIO MINUTES N EMERGENCY 22407 [facility] 7 7 ANA M DEPARTMEN EMERGENCY T VISIT PHYS HIGH/URGE NT SEVERITY OFFICE 36623 [facility] [place] OUTPATIEN 7 7 NURSE T VISIT PRACTITIO 25 NER GR MINUTES OFFICE 81074 [facility]ACRUZLEXX CRAFT OUTPATIEN 7 7 Mallika NAPOLES VISIT ,PSC 25 MINUTES EMERGENCY 42548 [facility] 7 7 ANA M DEPARTMEN EMERGENCY T VISIT PHYS HIGH/URGE NT SEVERITY EMERGENCY 13414 [facility] DEPT 7 7 MEDICAL VISIT SERV HIGH FOUNDATIO SEVERITY& N THREAT FUNCJ EMERGENCY 60352 7 7 [facility]ALTHCAR DEPARTMEN E T VISIT HOSPITALS HIGH/URGE NT SEVERITY HOSPITAL - 7 7 [facility] OUTPATIEN E T [facility]PIT[facility] EMERGENCY [facility] 7 7 MEDICAL JR DEPARTMEN SERV T VISIT FOUNDATIO MODERATE N SEVERITY OFFICE 35258 [place] OUTPATI[facility] 7 7 ORTHOPEDI T VISIT C 15 ASSOCIAT MINUTES [facility] 7 7 N OUTPATIEN COMMUNTIY T HOSPITA OFFICE 79558 [facility] 7 7 ORTHOPEDI T VISIT C 15 ASSOCIAT MINUTES OFFICE 48181 [facility] [place] OUTPATIEN 7 7 NURSE T VISIT PRACTITIO 15 NER GR MINUTES EMERGENCY 25372 [facility] 7 7 ANA M - YORBA DEPARTMEN EMERGENCY T VISIT PHYS HIGH/URGE NT SEVERITY EMERGENCY 10956 [facility] 7 7 ANA M E DEPARTMEN EMERGENCY T VISIT PHYS MODERATE SEVERITY EMERGENCY 96721 [facility] DEPT 7 7 ANA M - YORBA VISIT EMERGENCY HIGH PHYS SEVERITY& THREAT FUNCJ OFFICE 41984 [facility] FARRELL OUTPATIEN 7 7 Mallika NAPOLES VISIT ,PSC 25 MINUTES OFFICE 65657 [facility]ERYLE JUNIOR OUTPATIEN 7 7 ORTHOPEDI T VISIT C 15 ASSOCIAT [facility] 7 7 [facility] HOSP[facility] OFF[facility] 07784 [facility] 7 7 ORTHOPEDI T VISIT C 15 ASSOCIAT [facility] - 7 7 N OUTPATI COMMUNTI T HOSPITA EMERGENCY 70153 [facility] 7 7 N [facility]PART[facility] COMMUNTIY T [facility] MOD[facility] SEVERITY [facility] - 7 7 N OUTPATI [facility] HOSP[facility] OFFICE [address] [facility] 7 7 Mallika NAPOLES MD,PSC 25 MINUTES [facility] 7 7 [facility] 52349 [facility]ON MAHAJANS [facility] 7 7 MEDICAL T VISIT SERV 15 FOUNDATIO MINUTES N OFFICE 75108 [facility] 7 7 ORTHOPEDI T VISIT C 15 ASSOCIAT MINUTES OFFICE [address] [facility] 6 6 Mallika NAPOLES MD,PSC 25 MINUTES OFFICE 68075 [facility]ERYLE [facility] 6 6 ORTHOPEDI MONIQUE T NEW 45 C MINUTES [facility] 6 [facility] 25814 S [place] CAR OUTPATIEN 6 6 NURSE T VISIT PRACTITIO 15 NER GR MINUTES OFFICE 03811 ELVI TOVAR [facility]ELISSA [facility] 6 6 T VISIT 15 MINUTES EMERGENCY 74430 [facility] 6 6 ANA M DANAE DEPARTMEN EMERGENCY T VISIT PHYS MODERATE SEVERITY [facility]OSPITAL [facility] - 6 6 N OUTPATIEN COMMUNTIY T HOSPITA OFFICE 26723 NUBIA FARRELL OUTPATIEN 6 6 ISABELA NAPOLES T VISIT ,PSC 25 MINUTES OFFICE 79334 VERNON REGAN OUTPATIEN 6 6 MEDICAL MYA T VISIT SERV LAR 15 FOUNDATIO MINUTES N OFFICE 94474 [facility] [place] CAR OUTPATIEN 6 6 NURSE T VISIT PRACTITIO 15 NER GR MINUTES [facility]OS[facility]ITAL [facility] - 6 6 N OUTPATIEN [facility] HOSP[facility] OFFICE 79582 DELACRUZ VENANCIO OUTPATIEN 6 6 YONATHAN NAPOLES T VISIT ,PSC 25 MINUTES [facility] 54093 [facility] [place] CAR OUTPATIEN 6 6 NURSE T VISIT PRACTITIO 15 NER GR MINUTES [facility] 6 6 N OUTPATIEN COMMUNTIY T HOSPITA OFFICE 33223 [facility] [place] CAR OUTPATIEN 6 6 NURSE T VISIT PRACTITIO 15 NER GR MINUTES EMERGENCY 12637 [facility] 6 6 ANA M - YORBA DEPARTMEN EMERGENCY PAT T VISIT PHYS MODERATE SEVERITY EMERGENCY 51981 [facility] 6 6 N DEPARTMEN COMMUNTIY T VISIT HOSPITA HIGH/URGE NT SEVERITY HOSPITAL [facility] - 6 6 N OUTPATIEN COMMUNTIY T HOSPITA EMERGENCY 76332 [facility] 6 6 N DEPARTMEN COMMUNTIY T VISIT HOSPITA MODERATE SEVERITY EMERGENCY 69623 [facility] 6 6 ANA M MAR DEPARTMEN EMERGENCY T VISIT SERV HIGH/URGE NT SEVERITY HOSPITAL [facility] - 6 6 N OUTPATIEN COMMUNTIY T HOSPITA OFFICE 55018 DELACRUZ BUD OUTPATIEN 6 6 ISABELA NAPOLES T VISIT ,PSC 25 MINUTES EMERGENCY 25318 [facility] 6 6 N DEPARTMEN COMMUNTIY T VISIT HOSPITA LIMITED/M [facility] - 6 6 N OUTPATIEN COMMUNTIY T HOSPITA EMERGENCY 16562 [facility] 6 6 N DEPARTMEN COMMUNTIY T [facility] MOD[facility] SEVERITY [facility] - 6 6 N OUTPATIEN COMMUNTIY T HOSPITA EMERGENCY 57888 [facility] CE[facility]AROSI 6 6 - YORBA - YORBA DEPARTUMMC [facility] PAT PAT T VISIT MODERATE SEVERITY OFFICE 70286 [facility] [place] CAR OUTPATI 6 6 NURSE T VISIT PRACTITIO 15 NER GR MINUTES EMERGENCY 34692 [facility] ANA M LO TRA VISIT EMERGENCY HIGH SERVI SEVERITY& THREAT [facility] - 6 6 N OUTPATIEN COMMUNTIY T HOSPITA EMERGENCY 61840 [facility] DEPT 6 6 CARI CARI VISIT HIGH SEVERITY& THREAT [facility] - 6 6 N OUTPATIEN COMMUNTIY T HOSPITA EMERGENCY 65437 MARY HERNANDEZ 6 6 SCO SCO DEPARTMEN T VISIT MODERATE SEVERITY HOSPITAL [facility] - 6 6 N OUTPATIEN COMMUNTIY T HOSPITA EMERGENCY 60483 [facility] 6 6 N DEPARTMEN COMMUNTIY T VISIT HOSPITA HIGH/URGE NT SEVERITY EMERGENCY 34594 [facility] DEPT 6 6 CARI CARI VISIT HIGH SEVERITY& THREAT [facility] OFFICE 95896 [facility]ERNON [facility] 6 MEDICAL ARTIE T VISIT SERV 25 FOUNDATIO MINUTES [facility] - 6 6 N OUTPATIEN COMMUNTIY T [facility] - 6 6 N OUTPATIEN COMMUNTIY T HOSPITA OFFICE 48689 [place] [facility] [place] 6 6 MEDICAL ARTIE T VISIT SERV 25 FOUNDATIO MINUTES N OFFICE 06526 [place] [facility] OUTPATIEN 6 6 MEDICAL ARTIE T VISIT SERV 25 FOUNDATIO MINUTES HOSPITAL [facility] - 6 6 Y OUTPATI [facility] - 6 6 N OUTPATIEN COMMUNTIY [facility] 6 6 N OUTPATIEN COMMUNTIY [facility] 6 6 N OUTPATIEN COMM[facility]TIY [facility] - 6 6 N OUTPATIEN COMM[facility]TIY [facility] MARY - 6 6 MEM H[facility] OUTPATIEN [facility] MARY - 6 6 MEM [facility] OUTPATIEN [facility] OFFICE 71613 M[facility] OUTPATIEN 6 6 MEM HOS[facility] T VISIT INC 10 MINUTES OFFICE 77845 [facility] VIR OUTPATIEN 5 5 [facility] - 5 5 N OUTPATIEN COMMUNTIY HOSPITA OFFICE 14096 [facility] OUTPATIEN 5 5 MEM HOS[facility] T NEW 10 INC MINUTES OFFICE 77437 MAGDIEL PUENTES CRI OUTPATIEN 5 5 MD ARTURO, T [facility] 45 [facility] MARY - 5 5 MEM H[facility]P OUTPATIEN [facility] GE[facility]GE[facility] - 5 5 N OUTPATIEN COMMUNTIY HOSPITA OFFICE 77027 [place] [facility] OUTPATIEN 5 5 MEDICAL ARTIE T VISIT SERV 15 FOUNDATIO MINUTES N HOSPITAL UNIVERSIT - 5 5 Y OUTPATI HOSPITAL T OFFICE 25727 [place] [facility] OUTPATIEN 5 5 ARTIE ARTIE T VISIT 25 MINUTES EMERGENCY 83493 [facility] 5 5 N DEPARTMEN COMMUNTIY T [facility] LOW/MODER SEVERITY EMERGENCY 69820 MARY HERNANDEZ 5 5 SCO SCO DEPARTMEN T VISIT MODERATE SEVERITY HOSPITAL [facility] - 5 5 N OUTPATIEN [facility] - 5 5 N [facility]PAT[facility]EN [facility] - 5 5 N OUTPATIEN COMMUNTIY T HOSPITA OFFICE 00634 VERNNO MAHAJANS OUTPATIEN 5 5 MEDICAL ARTIE T VISIT SERV 15 FOUNDATIO MINUTES N EMERGENCY 57869 [facility] 5 5 [facility] DE[facility] T VISIT MODERATE SEVERITY OFFICE 15977 VERNON MAHAJANS OUTPATIEN 5 5 MEDICAL ARTIE T VISIT SERV 15 FOUNDATIO MINUTES N OFFICE 64296 GASTROENT CASE JUS OUTPATIEN 5 5 EROLOGY T VISIT AND 25 HEPATOL MINUTES OFFICE 03515 [place] OUTPATIEN 5 5 JAM JAM T NEW 30 MINUTES HOSPITAL [facility] - 5 5 N OUTPATIEN [facility]Y [facility] UN[facility] - 5 5 Y OUTPATI HOSPITAL T OFFICE 99748 [place] [facility] OUTPATIEN 5 5 MEDICAL ARTIE T NEW 30 SERV MINUTES FOUNDATIO N OFFICE 58172 [facility] OUTPATIEN 5 5 T VISIT 15 MINUTES HOSPITAL [facility] - 5 5 N OUTPATIEN COMMUNTIY T HOSPITA EMERGENCY 54903 MARY HERNANDEZ 5 5 SCO SCO DEPARTMEN T VISIT HIGH/URGE NT SEVERITY OFFICE 48141 HERI NOGUERA OUTPATIEN 5 5 T NEW 45 MINUTES HOSPITAL [facility]ERS[facility] - 5 5 Y [facility] - 5 5 Y [facility] T OFFICE 75451 [facility] OUTPATIEN 5 5 T VISIT 25 MINUTES EMERGENCY 64155 VASILIY AMANDA DEPT 5 5 DANAE DANAE VISIT HIGH SEVERITY& THREAT FUNCJ OFFICE 97195 [facility] OUTPATIEN 5 5 T VISIT [address] [facility] 5 N OUTPATIEN COMMUNTIY T HOSPITA OFFICE 16937 [facility] OUTPATIEN 5 5 T NEW 30 MINUTES EMERGENCY 66772 [facility] 5 5 N DEPARTMEN COMMUNTIY T VISIT HOSPITA LOW/MODER SEVERITY EMERGENCY 55559 VASILIY AMANDA 5 5 DANAE DANAE DEPARTMEN T VISIT MODERATE SEVERITY HOSPITAL [facility] - 5 5 N OUTPATIEN COMMUNTIY T HOSPITA
[2017-05-18 07:36] VITALS: BP 154/90
--- OUTSIDE RECORDS SUMMARY | 2017-05-18 07:37 | External Medical Summary Rpt | CCD ---
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 SY R #0 0. 23 5 32 ML 8M MX 31 G BU 10 05 30 30 00 CV Ac [place] 37 -2 -2 .0 00 S ti OP 00 6- 3- 01 PH ve IO 10 20 20 31 AR N 15 17 17 81 MA HC 0 01 CY L XL #0 23 15 32 0 MG TA BL ET LI 68 05 30 30 00 CV Ac SI 18 -2 -2 .0 00 S ti NO 00 9- 3- 01 PH ve NY 51 20 20 34 AR IL 70 17 17 98 MA 3 82 CY 40 #0 MG 23 32 TA BL ET NO 00 12 07 30 30 00 CV Ac VO 16 -2 -1 .0 00 S ti LI 91 6- 01 PH ve N 83 20 20 28 AR 70 71 17 17 85 MA -3 1 21 CY 0 10 #0 0 23 UN 32 IT /M L AL AC 65 05 10 30 00 CV Ac CU 70 -2 -1 0. 00 S ti -C 20 1- 6- 00 01 PH ve HE 40 20 20 0 28 AR K 81 17 17 85 MA AV 0 22 CY IV A #0 PL [address] RP NO 00 05 30 30 00 CV Ac RT 09 -2 -1 .0 00 S ti RI 30 4- 6- 00 01 PH ve PT 81 20 20 35 AR YL 10 17 17 02 MA IN 1 23 CY E HC #0 L 23 25 32 MG CA P AC 65 05 06 1. 30 00 CV Ac CU 70 -0 -0 00 00 S ti -C 20 4- 2- 0 01 PH ve HE 10 20 20 34 AR K 11 17 17 12 MA AV 0 81 CY IV A #0 PL 23 US 32 ME TE R GA 65 05 06 90 30 00 [...] #0 23 MG 32 TA BL ET MS 00 04 05 30 30 00 CV Ac RT 09 -2 -2 .0 00 S ti AZ 37 9- 6- 00 01 PH ve AP 20 20 20 32 AR IN 65 17 17 89 MA E 6 41 CY 15 #0 MG 23 32 TA BL ET BU 10 04 05 30 30 00 CV Ac [place] 37 -2 -2 .0 00 S ti OP 00 9- 6- 00 01 PH ve IO 10 20 20 31 AR N 15 17 17 81 MA HC 0 01 CY L XL #0 23 15 32 0 MG TA BL ET BD 08 04 05 10 30 00 CV Ac 29 -2 -1 0. 00 S ti IN 03 3 9- 00 01 PH ve CONTEH 28 20 20 0 32 AR LI 46 17 17 27 MA N 8 44 CY SY R #0 0. 23 5 32 ML 8M MX 31 G AC 65 04 05 10 30 00 CV Ac CU 70 -2 -1 0. 00 S ti -C 20 3- 9- 00 01 PH ve HE 40 20 20 0 28 AR K 81 17 17 85 MA AV 0 22 CY IV A #0 PL [address] RP NO 00 04 05 30 30 00 CV Ac VO 16 -2 -1 .0 00 S ti LI 91 3- 9- 00 01 PH ve N 83 20 20 28 AR 70 71 17 17 85 MA -3 1 21 CY 0 10 #0 0 23 UN 32 IT /M L AL DU 66 04 05 30 30 00 CV Ac LO 99 -2 -1 .0 00 S ti XE 30 3- 9- 00 01 PH ve TI 66 20 20 30 AR NE 33 17 17 17 MA 0 17 CY HC L #0 DR 23 32 30 MG CA P LA 59 04 05 60 21 00 CV Ac MO 74 -0 -0 .0 00 S ti TR 60 6- 5- 00 01 PH ve IG 24 20 20 32 AR IN 50 17 17 89 MA E 1 40 CY 25 #0 MG 23 32 TA BL ET MS 00 04 05 30 30 00 CV [...] MG 23 32 TA BL ET [place] 68 03 04 30 30 00 CV Ac AM 46 -2 -2 .0 00 S ti IP 20 4- 1- 01 PH ve EX 33 20 20 30 AR OL 19 17 17 04 MA E 0 37 CY 0. 25 #0 23 MG 32 TA BL ET NO 00 03 04 30 30 00 CV Ac RT 09 -2 -2 .0 00 S ti RI 30 4- 1- 01 PH ve PT 81 20 20 30 AR YL 10 17 17 04 MA IN 1 39 CY E HC #0 L 23 25 32 MG CA P DU 66 03 04 30 30 00 CV Ac LO 99 -2 -2 .0 00 S ti XE 30 4- 1- 01 PH ve TI 66 20 20 30 AR NE 33 17 17 17 MA 0 17 CY HC L #0 DR 23 32 30 MG CA P NO 00 03 04 30 30 00 CV Ac VO 16 -2 -2 .0 00 S ti LI 91 4- 1- 00 01 PH ve N 83 20 20 28 AR 70 71 17 17 85 MA -3 1 21 CY 0 10 #0 0 23 UN 32 IT /M L AL LI 68 03 04 30 30 00 CV Ac SI 18 -2 -2 .0 00 S ti NO 00 4- 1- 00 01 PH ve NY 51 20 20 28 AR IL 70 17 17 67 MA 3 87 CY 40 #0 MG 23 32 TA BL ET AC 65 03 04 10 30 00 CV Ac CU 70 -2 -2 0. 00 S ti -C 20 4- 1- 00 01 PH ve HE 40 20 20 0 28 AR K 81 17 17 85 MA AV 0 22 CY IV A #0 PL [address] RP BD 08 03 04 10 30 00 CV Ac 29 -2 -2 0. 00 S ti IN 03 4- 1- 00 01 PH ve CONTEH 28 20 20 0 32 AR LI 46 17 17 27 MA N 8 44 CY SY R #0 0. 23 5 32 ML 8M MX 31 G GA 65 03 04 90 30 00 CV Ac BA 86 -1 -0 .0 00 S ti PE 20 3- 7- 00 01 PH ve NT 52 20 20 31 AR IN 40 17 17 64 MA 5 63 CY 80 0 #0 MG 23 32 TA BL ET BU 10 03 04 30 30 00 CV Ac [place] 37 -1 -0 .0 00 S ti OP 00 5- 7- 00 01 PH ve IO 10 20 20 31 AR N 15 17 17 81 MA HC 0 01 CY L XL #0 23 15 32 0 MG TA BL ET OX 10 03 04 [...] 23 MP 32 DS TA BL ET NO 00 02 03 30 30 00 CV Ac VO 16 -1 -1 .0 00 S ti LI 91 2- 0- 00 01 PH ve N 83 20 20 28 AR 70 71 17 17 85 MA -3 1 21 CY 0 10 #0 0 23 UN 32 IT /M L AL DU 66 02 03 30 30 00 CV Ac LO 99 -1 -1 .0 00 S ti XE 30 0- 0- 00 01 PH ve TI 66 20 20 30 AR NE 33 17 17 17 MA 0 17 CY HC L #0 DR 23 32 30 MG CA P AC 65 02 03 10 30 00 CV Ac CU 70 -1 -1 0. 00 S ti -C 20 4- 0- 00 01 PH ve HE 40 20 20 0 28 AR K 81 17 17 85 MA AV 0 22 CY IV A #0 PL [address] RP BD 08 02 03 10 30 00 CV Ac 29 -1 -1 0. 00 S ti SY 03 4- 0- 00 01 PH ve RI 28 20 20 0 30 AR NG 46 17 17 36 MA E 6 64 CY 0. 5 #0 ML 23 32 12 .7 MM X3 0G [place] 68 02 03 30 30 00 CV Ac AM 46 -0 -0 .0 00 S ti IP 20 8- 3- 00 01 PH ve EX 33 20 20 30 AR OL 19 17 17 04 MA E 0 37 CY 0. 25 #0 23 MG 32 TA BL ET GA 65 02 03 90 30 00 CV Ac BA 86 -0 -0 .0 00 S ti PE 20 8- 3- 00 01 PH ve NT 52 20 20 30 AR IN 30 17 17 04 MA 5 38 CY 60 0 #0 MG 23 32 TA BL ET NO 00 02 03 30 30 00 CV Ac RT 09 -0 -0 .0 00 S ti RI 30 8- 3- 00 01 PH ve PT 81 20 20 30 AR YL 10 17 17 04 MA IN 1 39 CY E HC #0 L 23 25 32 MG CA P OX 10 02 03 90 30 00 [...] 00 8- 3- 00 01 PH ve NY 51 20 20 28 AR IL 70 17 17 67 MA 3 87 CY 40 #0 MG 23 32 TA BL ET NO 00 01 02 30 30 00 CV Ac VO 16 -1 -1 .0 00 S ti LI 91 6- 0- 00 01 PH ve N 83 20 20 28 AR 70 71 17 17 85 MA -3 1 21 CY 0 10 #0 0 23 UN 32 IT /M L AL GA 69 01 02 90 30 00 CV Ac BA 09 -1 -1 .0 00 S ti PE 70 3- 0- 00 01 PH ve NT 81 20 20 27 AR IN 50 17 17 06 MA 7 28 CY 40 0 #0 MG 23 32 CA PS UL E LI 68 01 02 30 30 00 CV Ac SI 18 -1 -1 .0 00 S ti NO 00 3- 0- 00 01 PH ve NY 51 20 20 28 AR IL 70 17 17 67 MA 3 87 CY 40 #0 MG 23 32 TA BL ET AC 65 01 02 10 30 00 CV Ac CU 70 -1 -1 0. 00 S ti -C 20 3- 0- 00 01 PH ve HE 40 20 20 0 28 AR K 81 17 17 85 MA AV 0 22 CY IV A #0 PL [address] RP BD 08 01 02 10 30 00 CV Ac 29 -1 -1 0. 00 S ti SY 03 3- 0- 00 01 PH ve RI 28 20 20 0 28 AR NG 46 17 17 85 MA E 6 23 CY 0. 5 #0 ML 23 32 12 .7 MM X3 0G RA 55 12 01 60 30 00 [...] LALO 0.5 ML GR FOR IM USE Procedures Procedure DOS Code Location Performer Comment RADIOLOGI 49006 [facility] C EXAM 7 N N CHEST 2 COMMUNTIY COMMUNTIY VIEWS HOSPITA HOSPITA FRONTAL&L ATERAL THERAPEUT 09948 [facility] GRUBBS IC 7 MEDICAL PROPHYLAC SERV TIC/DX FOUNDATIO INJECTION N SUBQ/IM DUP-SCAN 47574 [facility] XTR VEINS 7 N N COMPLETE COMMUNTIY COMMUNTIY HOSPITA HOSPITA BILATERAL STUDY DRUG TEST 66072 [facility] PRSMV 7 ORA NAPOLES MD,PSC CHEMISTRY ANALYZERS RADIOLOGI 31602 [facility] GANDARA C 7 MEDICAL EXAMINATI SERV ON CHEST FOUNDATIO SINGLE N VIEW FRONTAL ECG 38880 [place] 7 MEDICAL ECG SERV W/LEAST FOUNDATIO 12 LDS N I&[place] [address] [place] RASLAU HEAD/BRAI 7 MEDICAL N W/O SERV CONTRAST FOUNDATIO MATERIAL N GROUND A0425 JAME JAME MILEAGE 7 FAYETTE FAYETTE PER URBAN URBAN STATUTE COGOVT COGOVT MILE AMBULANCE A0429 JAME JAME SERVICE 7 FAYETTE FAYETTE BLS URBAN URBAN EMERGENCY COGOVT COGOVT TRANSPORT GROUND A0425 [facility] RURAL MILEAGE 7 METRO METRO PER AMBULANCE AMBULANCE STATUTE MILE ALS A0398 [facility] ROUTINE 7 METRO METRO DISPOSABL AMBULANCE AMBULANCE E SUPPLIES AMB A0427 [facility] SERVICE 7 METRO METRO ALS AMBULANCE AMBULANCE [place] [address] [place] TRUE HEAD/BRAI 7 MEDICAL N W/O SERV CONTRAST FOUNDATIO MATERIAL N RADIOLOGI 90461 [facility] [place] NORMA C 7 RADIOLOGY EXAMINATI ON CHEST SINGLE VIEW FRONTAL SBSQ 01752 [place] [address] HEALTH CARE/DAY MEDICAL 25 GROUP MINUTES SBSQ 98987 [place] [address] HEALTH S CARE/DAY MEDICAL 35 GROUP MINUTES SBSQ 09619 [place] [address] HEALTH CARE/DAY MEDICAL 25 GROUP MINUTES SWALLOWIN 62151 [place] AL[place] FERRER 7 MEDICAL W/CINERAD SERV IOGRAPY/V FOUNDATIO IDRADIOG N SBSQ 22463 [place] [address] NURSE CARE/DAY PRACTITIO 35 NER GR MINUTES RADIOLOGI 64887 [place] KATIA C 7 MEDICAL EXAMINATI SERV ON CHEST FOUNDATIO SINGLE N VIEW FRONTAL RADIOLOGI 18651 [place] KATIA C 7 MEDICAL EXAMINATI SERV ON CHEST FOUNDATIO SINGLE N VIEW FRONTAL RADIOLOGI 92241 [place] MIGUEL A C 7 MEDICAL AYA EXAMINATI SERV ON CHEST FOUNDATIO SINGLE N VIEW FRONTAL SBSQ 31424 [facility] 7 NURSE CARE/DAY PRACTITIO 35 NER GR MINUTES SBSQ 03543 [facility] 7 NURSE CARE/DAY PRACTITIO 35 NER GR MINUTES RADIOLOGI 40972 [place] TRISHJALEN C 7 MEDICAL AYA EXAMINATI SERV ON CHEST FOUNDATIO SINGLE N VIEW FRONTAL SBSQ 42301 [facility] 7 NURSE CARE/DAY PRACTITIO 35 NER GR MINUTES CRITICAL 41662 [facility] 7 NURSE ILL/INJUR PRACTITIO ED NER GR PATIENT INIT 30-74 MIN RADIOLOGI 33213 [place] LATOYASKYE C 7 MEDICAL AYA EXAMINATI SERV ON CHEST FOUNDATIO SINGLE N VIEW FRONTAL ECG 21829 [place] ACACIA ROUTINE 7 MEDICAL ECG SERV W/LEAST FOUNDATIO 12 LDS N I&R ONLY RADIOLOGI 04526 [place] ANTONIO C 7 MEDICAL EXAMINATI SERV ON CHEST FOUNDATIO SINGLE N VIEW FRONTAL SBSQ 29937 [facility] 7 NURSE CARE/DAY PRACTITIO 35 NER GR MINUTES CRITICAL 96845 [facility] 7 NURSE ILL/INJUR PRACTITIO ED NER GR PATIENT INIT 30-74 MIN RADIOLOGI 68812 [place] ANTONIO C 7 MEDICAL EXAMINATI SERV ON CHEST FOUNDATIO SINGLE N VIEW FRONTAL RADIOLOGI 26397 [place] PRASANNA C 7 MEDICAL EXAMINATI SERV ON CHEST FOUNDATIO SINGLE N VIEW FRONTAL SBSQ 76926 [facility] 7 NURSE CARE/DAY PRACTITIO 35 NER GR MINUTES RADEX 74582 [place] BRENT ABDOMEN 1 7 MEDICAL SERV ANTEROPOS FOUNDATIO TERIOR N VIEW BLD BANK 08608 [facility] 7 Y OF AUTHJ [place] [facility] STANDARD REPRT ESOPHAGOG 29534 [place] EDI ASTRODUOD 7 MEDICAL ENOSCOPY SERV TRANSORAL FOUNDATIO N DIAGNOSTI C ARTL 73883 [facility] CATHJ/CAN 7 NURSE NULJ PRACTITIO MNTR/ABBASI NER GR SFUSION SPX PRQ CRITICAL 10794 [facility] 7 NURSE ILL/INJUR PRACTITIO ED NER GR PATIENT INIT 30-74 MIN RADIOLOGI 11084 [place] DUGGAN C 7 MEDICAL EXAMINATI SERV ON CHEST FOUNDATIO SINGLE N VIEW FRONTAL RADIOLOGI 62195 [place] PRASANNA 7 MEDICAL EXAMINATI SERV ON CHEST FOUNDATIO SINGLE N VIEW FRONTAL SBSQ 10853 [facility] 7 MEDICAL CARE/DAY SERV 35 FOUNDATIO MINUTES N CRITICAL 51258 [facility] 7 NURSE ILL/INJUR PRACTITIO ED NER GR PATIENT INIT 30-74 MIN RADIOLOGI 65777 [place] PRASANNA C 7 MEDICAL EXAMINATI SERV ON CHEST FOUNDATIO SINGLE N VIEW FRONTAL RADEX 51127 [place] WAGONER ABDOMEN 1 7 MEDICAL SERV ANTEROPOS FOUNDATIO TERIOR N VIEW RADIOLOGI 18651 [place] DUGGAN C 7 MEDICAL EXAMINATI SERV ON CHEST FOUNDATIO SINGLE N VIEW FRONTAL CRITICAL 79713 [facility] CARE 7 NURSE ILL/INJUR PRACTITIO ED NER GR PATIENT INIT 30-74 MIN SBSQ 25051 [facility] 7 NURSE CARE/DAY PRACTITIO 35 NER GR MINUTES RADIOLOGI 06478 [place] AR C 7 MEDICAL MEDICAL EXAMINATI SERV SERV ON CHEST FOUNDATIO [place] [address] [place] BRENT ABDOMINAL 7 MEDICAL REAL SERV TIME FOUNDATIO W/IMAGE N LIMITED INITIAL 36861 [place] NICKL III INPATIENT 7 MEDICAL CONSULT SERV NEW/ESTAB FOUNDATIO PT 110 N MIN DUP-SCAN 19950 [place] BRENT ARTL DC 7 MEDICAL ABDL/PEL/ SERV SCROT&/RP FOUNDATIO R ORGN N COM RADIOLOGI 58784 [place] JOVI VALDEZ C 7 MEDICAL EXAMINATI SERV ON CHEST FOUNDATIO SINGLE N VIEW FRONTAL SBSQ 99454 [facility] 7 NURSE CARE/DAY PRACTITIO 35 NER GR MINUTES CRITICAL 84384 [facility] CARE 7 NURSE ILL/INJUR PRACTITIO ED NER GR PATIENT INIT 30-74 MIN RADIOLOGI 48623 [place] PRASANNA C 7 MEDICAL EXAMINATI SERV ON CHEST FOUNDATIO SINGLE N VIEW FRONTAL RADEX 18605 [place] SARA ABDOMEN 1 7 MEDICAL SERV ANTEROPOS FOUNDATIO TERIOR N VIEW RADIOLOGI 88985 [place] DUGAGN C 7 MEDICAL EXAMINATI SERV ON CHEST FOUNDATIO SINGLE N VIEW FRONTAL RADIOLOGI 33200 [place] PRASANNA C 7 MEDICAL EXAMINATI SERV ON CHEST FOUNDATIO SINGLE N VIEW FRONTAL CRITICAL 53893 [facility] CARE 7 NURSE ILL/INJUR PRACTITIO ED NER GR PATIENT INIT 30-74 MIN RADIOLOGI 10458 [place] PRASANNA C 7 MEDICAL EXAMINATI SERV ON CHEST FOUNDATIO SINGLE N VIEW FRONTAL RADIOLOGI 23555 [place] DUGGAN C 7 MEDICAL EXAMINATI SERV ON CHEST FOUNDATIO SINGLE N [place]IEW FRONTAL ECG 81857 [place] ACACIA ROUTINE 7 MEDICAL ECG SERV W/LEAST FOUNDATIO 12 LDS N I&R ONLY RADIOLOGI 49200 [place] NANCY C 7 MEDICAL EXAMINATI SERV ON CHEST FOUNDATIO SINGLE N VIEW FRONTAL CRITICAL 30723 [facility] C[facility] 7 NURSE ILL/INJUR PRACTITIO ED NER GR PATIENT INIT 30-74 MIN RADIOLOGI 76660 [place] NANCY C 7 MEDICAL EXAMINATI SERV ON CHEST FOUNDATIO SINGLE N VIEW FRONTAL RADIOLOGI 24826 [place] DUGGAN C 7 MEDICAL EXAMINATI SERV ON CHEST FOUNDATIO SINGLE N VIEW FRONTAL CRITICAL 43449 [facility] CARE 7 NURSE ILL/INJUR PRACTITIO ED NER GR PATIENT INIT 30-74 MIN RADIOLOGI 07278 [place] DUGGAN C 7 MEDICAL EXAMINATI SERV ON CHEST FOUNDATIO SINGLE N VIEW FRONTAL RADIOLOGI 25618 [place] KATIA C 7 MEDICAL EXAMINATI SERV ON CHE[place] [address] [place] NANCY ANGIOGRAP 7 MEDICAL HY CHEST SERV W/CONTRAS FOUNDATIO T/NONCONT N RAST RADIOLOGI 70399 [place] NANCY C 7 MEDICAL EXAMINATI SERV ON CHEST FOUNDATIO SINGLE N VIEW FRONTAL THORACOSC 70663 [place] REG OPY RMVL 7 MEDICAL INTRAPLEU SERV RAL FOUNDATIO FB/FIBRIN N DEPOSIT INSJ 22986 [facility] NON-TUNNE 7 NURSE LED PRACTITIO CENTRAL NER GR VENOUS CATH AGE 7 YR/> ANES 58154 [place] DORETHA THORACOTO 7 MEDICAL JR MY & SERVICES THORACOSC OPY W/1 LUNG VNTJ CYTP 09432 [facility] CONCENTRA 7 Y OF TION [place] [facility] INTERPRET ATION RADIOLOGI 45381 [place] EVRNON C 7 MEDICAL MEDICAL EXAMINATI SERV SERV ON CHEST FOUNDATIO FOUNDATIO SINGLE N N VIEW FRONTAL ECHO 23236 [facility] SERGO TTHRC R-T 7 MEDICAL 2D SERV W/WOM-MOD FOUNDATIO E COMPL N SPEC&COLR D SBSQ 60109 [facility] 7 NURSE CARE/DAY PRACTITIO 35 NER GR MINUTES BRNCHSC 92418 [facility] W/BRNCL 7 NURSE ALVEOLAR PRACTITIO LAVAGE NER GR RADIOLOGI 85463 [place] KATIA C 7 MEDICAL EXAMINATI SERV ON CHEST FOUNDATIO SINGLE N VIEW FRONTAL CT THORAX 73393 [place] KATIA W/O 7 MEDICAL CONTRAST SERV MATERIAL FOUNDATIO N ARTL 94318 [place] ANUEL CATHJ/CAN 7 MEDICAL NULJ SERV MNTR/ABBASI FOUNDATIO SFUSION N SPX PRQ SBSQ 06656 [facility] 7 MEDICAL CARE/DAY SERV 15 FOUNDATIO MINUTES N RADIOLOGI 89255 [place] KATIA C 7 MEDICAL EXAMINATI SERV ON CHEST FOUNDATIO SINGLE N VIEW FRONTAL SBSQ 95394 [facility] 7 MEDICAL CARE/DAY SERV 25 FOUNDATIO MINUTES N RADIOLOGI 19826 [place] PRASANNA C 7 MEDICAL EXAMINATI SERV ON CHEST FOUNDATIO SINGLE N VIEW FRONTAL RADEX 88195 [place] SARA ABDOMEN 1 7 MEDICAL SERV ANTEROPOS FOUNDATIO TERIOR N VIEW INITIAL 96434 [facility] 7 MEDICAL CARE/DAY [place] [address] [place] [address] [facility] MAXILLOFA 7 MEDICAL CIAL W/[place] [address] [facility]ON [facility] ANGIOGRAP 7 MEDICAL HY HEAD SERV W/CONTRAS FOUNDATIO T/NONCONT N RAST CT LUMBAR 23010 VERNON NICHOL SPINE 7 MEDICAL W/O SERV CONTRAST FOUNDATIO MATERIAL N AMB A0431 AIR AIR SERVICE 7 METHODS METHODS CONVNTION [facility] AIR SRVC TRANSP[place] [address] [place] [address] V[facility]ON GANDARA ANGIOGRAP 7 MEDICAL HY CHEST SERV W/CONTRAS [place] [address] [facility] ANGIOGRAP 7 MEDICAL HY NECK SERV W/CONTRAS [place] [address] VERNON GONZALESNICHOL ABDOMEN & 7 MEDICAL PELVIS SERV W/CONTRAS FOUNDATIO T N MATERIAL RADIOLOGI 20042 [facility] C 7 MEDICAL EXAMINATI SERV ON CHE[place] [address] VERNON GONZALESNICHOL THORACIC 7 MEDICAL SPINE W/[place] [address] VERNON GONZALESNICHOL CERVICAL 7 MEDICAL SPINE W/O SERV CONTRAST FOUNDATIO MATERIAL N [place] ANY 560[address] CNTR[facility] VERONN SHERITA JT UPPER 7 RADIOLOGY III EXTREMITY W/O CONTRAST MATRL RADEX HIP 55984 [facility] [place] FAMILIA 7 RADIOLOGY UNILATERA L WITH PELVIS 2-3 VIEWS SIMPLE 59270 [facility] WARKENTIN REPAIR 7 ANA M E SCALP/NEC EMERGENCY K/AX/SILVERIO PHYS T/TRUNK 2.5CM/< [place] [address] [facility] [place] BEEBE HEAD/BRAI 7 RADIOLOGY N W/O CONTRAST MATERIAL AMB A0427 JAME JAME SERVICE 7 FAYETTE FAYEE ALS URBAN URBAN EMERGENCY COGOVT COGOVT TRANSPORT LEVEL 1 ECG 60273 [facility] CELLAROSI ROUTINE 7 ANA M - YORBA ECG EMERGENCY W/LEAST PHYS 12 LDS I&[place] [address] [facility] [place] CONCEPCIÓN CERVICAL 7 RADIOLOGY SPINE W/O CONTRAST MATERIAL GROUND A0425 JAME JAME MILEAGE 7 FAYETTE FAYETTE PER URBAN URBAN STATUTE COGOVT COGOVT MILE CT LUMBAR 63743 [facility] [place] BEEBE SPINE 7 RADIOLOGY W/O CONTRAST MATERIAL DSTR [address] AGNT SURGERY SURGERY [facility] FCT ADDL LMBR/SACR AL MOD SED 57698 NUBIA FARRELL SAME 7 LOIDA NAPOLES/XUAN ONOFRE,PSC INITIAL 15 MINS 5/> YRS DSTR [address] AGNT SURGERY SURGERY [facility] FCT SNGL LMBR/SACR AL DRUG TEST 08731 NUBIA FARRELL PRSMV 7 ORA NAPOLES MD,PSC CHEMISTRY ANALYZERS RADEX 44028 [facility] JUNIOR SHOULDER 7 ORTHOPEDI COMPLETE C MINIMUM 2 ASSOCIAT VIEWS ARTHROCEN 71583 [facility] JUNIOR TESIS 7 ORTHOPEDI ASPIR&/IN C J MAJOR ASSOCIAT JT/BURSA W/O US INJECTION J1030 [facility] JUNIOR 7 ORTHOPEDI METHYLPRE C DNISOLONE ASSOCIAT ACETATE 40 MG IADNA 90183 [facility] HEPATITIS 7 N N C QUANT COMMUNTIY COMMUNTIY & REVERSE HOSPITA HOSPITA TRANSCRIP TION COLLECTIO 73120 [facility] N VENOUS 7 N N BLOOD COMMUNTIY COMMUNTIY VENIPUNCT HOSPITA HOSPITA URE DSTR [address] AGNT SURGERY SURGERY [facility] FCT SNGL LMBR/SACR AL DSTR [address] AGNT SURGERY SURGERY [facility] FCT ADDL LMBR/SACR [place] 82743 NUBIA FARRELL SAME 7 LOIDA NAPOLES/XUAN ONOFRE,PSC INITIAL 15 MINS 5/> YRS MRI ANY 64163 [facility] [place] KOSTELIC JT LOWER 7 RADIOLOGY EXTREM W/[place] [address] [facility] PHOSPHORU 7 Cassy NAPOLES MD,[facility] INORGANIC BILIRUBIN 26818 [facility] DIRECT 7 MD DONY,[facility] COMPREHEN 73132 [facility] SIVE 7 [place] NAPOLES MD,[facility] PANEL BLOOD 69249 [facility] COUNT 7 DAVE NAPOLES MD,[facility] AUTO&AUTO DIFRNTL WBC COLLECTIO 54818 [facility] N VENOUS 7 ARIS NAPOLES MD,[facility] [place] [address] [facility] GLUTAMYLT 7 SOUTH NAPOLES MD,[facility] [place] [address] [facility] [place] SCALF ABDOMINAL 7 RADIOLOGY REAL TIME W/IMAGE LIMITED RADEX HIP 32410 [facility] 7 ORTHOPEDI UNILATERA C L WITH ASSOCIAT PELVIS 2-3 VIEWS RADIOLOGI 64754 [facility] 7 ORTHOPEDI EXAMINATI C ON KNEE 3 ASSOCIAT VIEWS DRUG TEST G0479 [facility] 6 VIVIAN NAPOLES;Radha ONOFRE,[facility] NSTRUMENT ED CHEMISTRY ANLYZER ARTHROCEN 01541 [place] V[facility]ON LOWEIS 6 ORTHOPEDI MONIQUE ASPIR&/IN C J MAJOR ASSOCIAT JT/BURSA W/O US CANE E0105 J & L J & L QUAD/3-[place] 6 HOME HOME [facility]L EQUIPMENT EQUIPMENT ADJUSTBL/ FIX W/TIPS KO ELAST L1820 [facility] W/CONDYLR 6 BRACING, BRACING, PADS&JNT INC INC PRFAB INCL FIT&ADJ RADIOLOGI 34744 [facility] MED[facility] CENTERMaisha JUNIOR EXAM 6 ORTHOPEDI MONIQUE KNEE C COMPLETE ASSOCIAT 4/MORE VIEWS INJECTION J1030 [place] [facility] 6 ORTHOPEDI MONIQUE METHYLPRE C DNISOLONE ASSOCIAT ACETATE 40 MG IM ADM 06889 KMS[facility] KALINA CAR PRQ ID 6 NURSE SUBQ/IM PRACTITIO NJXS 1 NER GR VACCINE LIPID 39178 [facility] 6 Y Y [facility] HEMOGLOBI 73801 [facility] AZLE 6 Y Y GLYCOSYLA [facility] SALIMA A1C COMPREHEN 53126 [facility] 6 Y Y METABOLIC [facility] PANEL IIV4 VACC 27561 S KALINA CAR PRESRV 6 NURSE FREE 0.5 PRACTITIO ML FOR IM NER GR USE COMPUTERI 14794 BOLES MELISSA BOLES MELISSA ZED 6 OPHTHALMI C IMAGING OPTIC NERVE VISUAL 85742 BOLES MELISSA BOLES MELISSA FIELD XM 6 UNI/BI W/INTERP EXTENDED EXAM INCISION 93500 [facility] & 6 ANA M DANAE DRAINAGE EMERGENCY ABSCESS PHYS COMPLICAT ED/MULTIP LE DRAINAGE 78021 [facility] SCROTAL 6 N N WALL COMMUNTIY COMMUNTIY ABSCESS HOSPITA HOSPITA INJECTION J2001 [facility] 6 N N LIDOCAINE COMMUNTIY COMMUNTIY HCL HOSPITA HOSPITA INTRAVENO US INF[place] [address] [place] [address] NUBIA FARRELL GLUTAMYLT 6 ISABELA NAPOLES MD,PSC GAMMA COLLECTIO 77180 NUBIA FARRELL N VENOUS 6 ISABELA NAPOLES BLOOD ,PSC VENIPUNCT URE DRUG TEST G0479 ISABELA HANNAH PRESUMP;I ,PSC NSTRUMENT ED CHEMISTRY ANLYZER BLOOD 40365 NUBIA FARRELL COUNT 6 ISABELA NAPOLES COMPLETE ,PSC AUTO&AUTO DIFRNTL WBC COMPREHEN 95162 NUBIA FARRELL SIVE 6 ISABELA NAPOLES METABOLIC ,PSC PANEL BILIRUBIN 49200 NUBIA FARRELL DIRECT 6 ISABELA NAPOLES MD,[place] [address] NUBIA FARRELL PHOSPHORU 6 ISABELA NAPOLES MD,PSC INORGANIC REMOVAL 03715 KMS[facility] KALINA CAR IMPACTED 6 NURSE CERUMEN PRACTITIO IRRIGATIO NER GR N/LVG UNILAT IADNA 03283 [facility] HEPATITIS 6 N N C QUANT COMMUNTIY COMMUNTIY & REVERSE HOSPITA HOSPITA TRANSCRIP TION COLLECTIO 85050 [facility] N VENOUS 6 N N BLOOD COMMUNTIY COMMUNTIY VENIPUNCT HOSPITA HOSPITA URE COMPREHEN 66905 [facility] SIVE 6 N N METABOLIC COMMUNTIY COMMUNTIY PANEL HOSPITA HOSPITA BLOOD 48652 [facility] COUNT 6 N N COMPLETE COMMUNTIY COMMUNTIY AUTO&AUTO HOSPITA HOSPITA DIFRNTL WBC DRUG TEST G0479 NUBIA CRAFT 6 YONATHAN NAPOLES PRESUMP;I ,PSC NSTRUMENT ED CHEMISTRY ANLYZER SHVG SKIN 60478 KMS[facility] KALINA CAR LESION 1 6 NURSE PRACTITIO TRUNK/ARM NER GR /LEG DIAM 0.6-1[place] [address] [facility] CORNEA SURG 6 Y OF VIR PATHOLOGY [place] [facility] GROSS&MONIQUE ROSCOPIC EXAM IADNA 34619 [facility] HEPATITIS 6 N N C QUANT COMMUNTIY COMMUNTIY & REVERSE HOSPITA HOSPITA TRANSCRIP TION COLLECTIO 16652 [facility] N VENOUS 6 N N BLOOD COMMUNTIY COMMUNTIY VENIPUNCT HOSPITA HOSPITA URE COMPREHEN 28451 [facility] SIVE 6 N N METABOLIC COMMUNTIY COMMUNTIY PANEL HOSPITA HOSPITA BLOOD 27650 [facility] COUNT 6 N N COMPLETE COMMUNTIY COMMUNTIY AUTOMATED HOSPITA HOSPITA INCISION 00613 [facility] & 6 N N [facility] COMMUNTIY ABSCESS HOSPITA HOSPITA SIMPLE/SI NGLE INCISION 04262 [facility] CELLAROSI & 6 ANA M - YORBA DRAINAGE EMERGENCY PAT ABSCESS PHYS COMPLICAT ED/MULTIP LE DSTR 08531 [facility] CRAFT NROLYTC 6 YONATHAN NAPOLES MD,PSC PARVERTEB FCT ADDL LMBR/SACR AL DSTR 51932 [facility] CRAFT NROLYTC 6 YONATHAN NAPOLES MD,PSC PARVERTEB FCT SNGL LMBR/SACR AL MODERATE 05151 N[facility] ALVARADOCAPRI SEDATJ 6 YONATHAN NAPOLES SAME, MD,PSC PHYS/QHP 5/>YRS INIT 30 MIN RADEX 98830 [facility] [place] [facility] RIBS UNI 6 RADIOLOGY RHO W/POSTERO ANT CH MINIMUM 3 VIEWS MODERATE 01012 [facility] ALVARADONAKULP SEDATJ 6 YONATHAN NAPOLES SAME, MD,PSC PHYS/QHP 5/>YRS INIT 30 MIN DSTR 29836 N[facility] ALVARADONAKULP NROLYTC 6 YONATHAN NAPOLES MD,PSC PARVERTEB FCT SNGL LMBR/SACR AL DSTR 34075 NUBIA PEÑAP NROLYTC 6 YONATHAN NAPOLES MD,PSC PARVERTEB FCT ADDL LMBR/SACR AL LUMB L0642 N[facility]IA ALVARADONAKULP ORTHOS 6 YONATHAN NAPOLES MD,PSC [place] [address] NUBIA FARRELL PHOSPHORU 6 ISABELA NAPOLES MD,PSC INORGANIC BILIRUBIN 15676 N[facility]IA FARRELL DIRECT 6 ISABELA NAPOLES MD,PSC COMPREHEN 74865 N[facility] FARRELL SIVE 6 ISABELA NAPOLES METABOLIC ,PSC PANEL BLOOD 24827 N[facility]IA FARRELL COUNT 6 ISABELA NAPOLES COMPLETE ,PSC AUTO&AUTO DIFRNTL WBC DRUG TEST G0479 [facility] FARRELL 6 ISABELA NAPOLES PRESUMP;I ,PSC NSTRUMENT ED CHEMISTRY ANLYZER COLLECTIO 33327 NUBIA FARRELL N VENOUS 6 ISABELA NAPOLES BLOOD ,[place] [address] NUBIA FARRELL GLUTAMYLT 6 ISABELA NAPOLES MD,PSC GAMMA RADEX 51096 [facility] [place] FOOT 6 RADIOLOGY III COMPLETE MINIMUM 3 VIEWS CRITICAL 13334 [facility] 6 ANA M HUG ILL/INJUR PHYSICIAN ED SERVI PATIENT INIT 30-74 MIN AMB A0427 [facility] 6 NANCY CRUZ ALS CO EMS CO [place] [address] [facility] [place] SCALF CARLIE HEAD/BRAI 6 RADIOLOGY N W/O CONTRAST MATERIAL GROUND A0425 [facility] MILEAGE 6 N-DENILSON Peng-DENILSON PER CO EMS CO EMS STATUTE MILE GROUND A0425 [facility] MILEAGE 6 N-DENILSON Peng-DENILSON PER CO EMS CO EMS STATUTE MILE AMBULANCE A0429 [facility] SERVICE 6 N-DENILSON N-DENILSON BLS CO EMS [place] [address] [facility] TROPONIN 6 N N QUANTITAT COMMUNTIY COMMUNTIY JOSE F HOSPITA HOSPITA GLUC BLD 48095 [facility] GLUC MNTR 6 N N DEV COMMUNTIY COMMUNTIY CLEARED HOSPITA HOSPITA FDA SPEC HOME USE KETONE 10181 [facility] BODIES 6 N N SERUM COMMUNTIY COMMUNTIY QUALITATI HOSPITA HOSPITA VE BLOOD 57384 [facility] COUNT 6 N N COMPLETE COMMUNTIY COMMUNTIY AUTO&AUTO HOSPITA HOSPITA DIFRNTL WBC COMPREHEN 39523 [facility] SIVE 6 N N METABOLIC COMMUNTIY COMMUNTIY PANEL HOSPITA HOSPITA RADIOLOGI 78371 [facility] C 6 N N EXAMINATI COMMUNTIY COMMUNTIY ON CHEST HOSPITA HOSPITA SINGLE VIEW FRONTAL COLLECTIO 77074 [facility] N VENOUS 6 N N BLOOD COMMUNTIY COMMUNTIY [place] [address] [facility] AMMONIA 6 N N COMMUNTIY COMMUNTIY HOSPITA HOSPITA THER 21629 [facility] PROPH/DX 6 N N NJX IV COMMUNTIY COMMUNTIY PUSH HOSPITA HOSPITA SINGLE/1S T SBST/DRUG ECG 00596 [facility] ROUTINE 6 N N ECG COMMUNTIY COMMUNTIY W/LEAST HOSPITA HOSPITA 12 LDS TRCG ONLY W/O I&[place] [address] [facility] INFUSION 6 N N HYDRATION COMMUNTIY COMMUNTIY EACH HOSPITA HOSPITA ADDITIONA L HOUR INFUSION J7030 [facility] NORMAL 6 N N SALINE COMMUNTIY COMMUNTIY SOLUTION HOSPITA HOSPITA 1000 CC MODERATE 59678 VENANCIO ALVARADORIWisam SEDATJ 6 DEN DEN SAME PHYS/QHP 5/>YRS INIT 30 MIN NJX 97269 STONE STONE DX/THER [address] AGT PVRT SURGERY SURGERY FACET JT CENTER CENTER LMBR/SAC 1 LEVEL NJX 90352 JENNYRIP JENNYRIP DX/THER 6 DEN DEN AGT PVRT FACET JT LMBR/SAC 2ND LEVEL DRUG TEST G0479 [facility] 6 DEN DEN PRESUMP;I NSTRUMENT ED CHEMISTRY ANLYZER CREATININ 21501 [facility] OTHER 6 DEN DEN SOURCE COLLECTIO 05356 [facility] N VENOUS 6 N N BLOOD COMMUNTIY COMMUNTIY VENIPUNCT HOSPITA HOSPITA URE BLOOD 60285 [facility] COUNT 6 N N COMPLETE COMMUNTIY COMMUNTIY AUTOMATED HOSPITA HOSPITA COMPREHEN 03320 [facility] SIVE 6 N N METABOLIC COMMUNTIY COMMUNTIY PANEL HOSPITA HOSPITA COMPREHEN 03230 [facility] SIVE 6 N N METABOLIC COMMUNTIY COMMUNTI[place] [address] [facility] LIPASE 6 N N COMMUNTIY COMMUNTIY HOSPITA HOSPITA PROTHROMB 69924 [facility] IN TIME 6 N N COMMUNTIY COMMUNTIY HOSPITA HOSPITA BLOOD 81837 [facility] COUNT 6 N N COMPLETE COMMUNTIY COMMUNTIY AUTO&AUTO HOSPITA HOSPITA DIFRNTL WBC URNLS DIP 51525 [facility] 6 N N STICK/TAB COMMUNTIY COMMUNTIY LET HOSPITA HOSPITA REAGENT AUTO MICROSCOP Y BLOOD 49295 [facility] OCCULT 6 N N PEROXIDAS COMMUNTIY COMMUNTIY E ACTV HOSPITA HOSPITA QUAL FECES 1-3 SPEC COLLECTIO 39273 [facility] N VENOUS 6 N N BLOOD COMMUNTIY COMMUNTIY VENIPUNCT HOSPITA HOSPITA URE THROMBOPL 58519 [facility] ASTIN 6 N N TIME COMMUNTIY COMMUNTIY PARTIAL HOSPITA HOSPITA PLASMA/[place] [address] [facility] AMYLASE 6 N N [place] [address] [facility] INFUSION 6 N N THERAPY/P COMMUNTIY COMMUNTIY ROPHYLAXI HOSPITA HOSPITA S /DX 1ST TO 1 HR THERAPEUT 43829 [facility] IC 6 N N INJECTION COMMUNTIY COMMUNTIY IV PUSH HOSPITA HOSPITA EACH NEW DRUG INJECTION J2270 [facility] MORPHINE 6 N N SULFATE COMMUNTIY COMMUNTIY UP TO 10 [place] [address] [facility] INFUSION 6 N N THERAPY COMMUNTIY COMMUNTIY PROPHYLAX HOSPITA HOSPITA IS/DX EA HOUR COLLECTIO 17295 [facility] N VENOUS 6 N N BLOOD COMMUNTIY COMMUNTIY VENIPUNCT HOSPITA HOSPITA URE BLOOD 08072 [facility] COUNT 6 N N COMPLETE COMMUNTIY COMMUNTIY AUTOMATED HOSPITA HOSPITA COMPREHEN 05339 [facility] SIVE 6 N N METABOLIC COMMUNTIY COMMUNTIY PANEL HOSPITA HOSPITA RADIOLOGI 83327 [facility] [place] [facility] C EXAM 6 RADIOLOGY RHO CHEST 2 VIEWS FRONTAL&L ATERAL HEMOGLOBI 11777 [facility] AZLE 6 Y Y [facility] SALIMA A1C DRUG TEST G0479 [facility] 6 N N PRESUMP;I COMMUNTIY COMMUNTIY NSTRUMENT HOSPITA HOSPITA ED CHEMISTRY ANLYZER COLLECTIO 54529 [facility] N VENOUS 6 N N BLOOD COMMUNTIY COMMUNTIY VENIPUNCT HOSPITA HOSPITA URE IAADIADOO 17195 [facility] GRUBBS 6 MEDICAL [place] [address] [facility] [place] ABDOMINAL 6 RADIOLOGY RHO REAL TIME W/IMAGE LIMITED ECG 78654 NUBIA NAPOLES ROUTINE 6 VIC NAPOLES ECG MD,PSC W/LEAST 12 LDS W/I&R COLLECTIO 65096 [facility] N VENOUS 6 N N BLOOD COMMUNTIY COMMUNTIY [place]ENIP[place] [address] [facility] IRON 6 N N COMMUNTIY COMMUNTIY HOSPITA HOSPITA HEPATITIS 52212 [facility] A 6 N N ANTIBODY COMMUNTIY COMMUNTIY HAAB HOSPITA HOSPITA HFE 63219 [facility] HEMOCHROM 6 N N ATOSIS COMMUNTIY COMMUNTIY GENE ANAL HOSPITA HOSPITA COMMON VARIANTS APOLIPOPR 23688 [facility] OTEIN 6 N N EACH COMMUNTIY [place] [address] [facility] HAPTOGLOB 6 N N IN COMMUNTIY COMMUNTIY QUANTIT[place] [address] [facility] GLUTAMYLT 6 N N RASE COMMUNTIY COMMUNTIY GAMMA HOSPITA HOSPITA ALPHA-FET 55167 [facility] OPROTEIN 6 N N SERUM COMMUNTIY COMMUNTIY HOSPITA HOSPITA IRON 87210 [facility] BINDING 6 N N CAPACITY COMMUNTIY COMMUNTIY HOSPITA HOSPITA ALPHA-1-A 18874 [facility] NTITRYPSI 6 N N N TOTAL COMMUNTIY COMMUNTIY HOSPITA HOSPITA ALPHA-1-A 38236 [facility] NTITRYPSI 6 N N N COMMUNTIY COMMUNTIY PHENOTYPE HOSPITA HOSPITA DRUG TEST G0479 [facility] 6 N N PRESUMP;I COMMUNTIY COMMUNTIY NSTRUMENT HOSPITA HOSPITA ED CHEMISTRY ANLYZER BLOOD 27058 [facility] COUNT 6 N N COMPLETE COMMUNTIY COMMUNTIY AUTOMATED HOSPITA HOSPITA COMPREHEN 75117 [facility] SIVE 6 N N METABOLIC COMMUNTIY COMMUNTIY PANEL HOSPITA HOSPITA PROTHROMB 28776 [facility] IN TIME 6 N N COMMUNTI[place] [address] [facility] FERRITIN 6 N N COMMUNTIY COMMUNTIY HOSPITA HOSPITA HEPATITIS 08252 [facility] B CORE 6 N N ANTIBODY COMMUNTIY COMMUNTIY HBCAB HOSPITA HOSPITA TOTAL HEPATITIS 86160 [facility] B SURF 6 N N ANTIBODY COMMUNTIY COMMUNTI[place] [address] [facility] HEPATITIS 6 N N B COMMUNTIY COMMUNTIY SURFACE HOSPITA HOSPITA ANTIGEN DRUG TEST G0479 [facility] 6 N N PRESUMP;I COMMUNTIY COMMUNTIY NSTRUMENT HOSPITA HOSPITA ED CHEMISTRY ANLYZER DRUG 62825 MARY HERNANDEZ SCREENING 6 MEM [facility] COCAINE INC INC DRUG TST G0477 MARY HERNANDEZ PRESUMP;C 6 [facility] PBL BEING INC INC READ DC OPT OBV ONLY THERAPEUT 74672 [facility] IC PX 1/> 5 N N AREAS COMMUNTIY COMMUNTIY EACH 15 [place] [address] [facility] 1/> AREAS 5 N N EACH 15 COMMUNTIY COMMUNTIY MIN HOSPITA HOSPITA NEUROMUSC REEDUCA THERAPEUT 09419 [facility] IC PX 1/> 5 N N AREAS COMMUNTIY COMMUNTIY EACH 15 HOSPITA HOSPITA MIN EXERCISES E-STIM G0283 [facility] 1/> AREAS 5 N N OTH THAN COMMUNTIY COMMUNTIY WND CARE HOSPITA HOSPITA PART TX PLAN TOBACCO 30500 [facility] APRO VIR USE 5 [facility] INTERMEDI ATE 3-10 MINUTES PHYSICAL 91458 [facility] THERAPY 5 N N EVALUATIO COMMUNTIY COMMUNTIY N HOSPITA HOSPITA SELF-CARE 53485 [facility] /HOME 5 N N MGMT COMMUNTIY COMMUNTIY TRAINING HOSPITA HOSPITA EACH 15 MINUTES 04101 [facility] [place] [facility] RETROPERI 5 RADIOLOGY RHO TONEAL REAL TIME W/IMAGE LIMITED DUP-SCAN 48736 [facility] ARTL DC 5 N N ABDL/PEL/ COMMUNTIY COMMUNTIY SCROT&/RP HOSPITA HOSPITA R ORGN LMT BLOOD 14610 [facility] 5 Y Y COMPLETE HOSPITAL HOSPITAL AUTOMATED COMPREHEN 79680 [facility]ABOLIC [facility] HOSPITAL PANEL ECG 68132 [place] ROUTINE 5 MEDICAL ARTIE ECG SERV W/LEAST FOUNDATIO 12 LDS N W/I&[place] [address] [facility] BLOOD/URI 5 N N C ACID COMMUNTIY COMMUNTIY HOSPITA HOSPITA SEDIMENTA 94953 [facility] TION RATE 5 N N RBC COMMUNTIY COMMUNTIY AUTOMATED HOSPITA HOSPITA COLLECTIO 77201 [facility] N VENOUS 5 N N BLOOD COMMUNTIY COMMUNTIY VENIPUNCT HOSPITA HOSPITA URE COMPREHEN 47162 [facility] SIVE 5 N N METABOLIC COMMUNTIY COMMUNTIY PANEL [place] [address] [facility] [place]ER[place] JT LOWER 5 RADIOLOGY III EXTREM W/O CONTRAST MATRL BLOOD 60024 [facility] COUNT 5 N N COMPLETE COMMUNTIY COMMUNTIY AUTOMATED HOSPITA HOSPITA KNEE L1812 [facility] 5 TECHNOLOG TECHNOLOG ELASTIC IES INC IES INC WITH JOINTS PREFAB RADIOLOGI 07563 [facility] C EXAM 5 N N BOTH COMMUNTIY COMMUNTIY KNEES HOSPITA HOSPITA STANDING ANTEROPOS T RADIOLOGI 60375 [facility] C 5 N N EXAMINATI COMMUNTIY COMMUNTIY ON KNEE HOSPITA HOSPITA 1/2 VIEWS RADIOLOGI 44532 [facility] [place] [facility] C 5 RADIOLOGY RHO EXAMINATI ON KNEE 3 VIEWS FUNDUS 72283 [facility] PHOTOGRAP 5 JAM JAM HY W/INTERPR ETATION & REPORT MRI 60474 [facility] [place] SPINAL 5 RADIOLOGY III ROMÁN CANAL LUMBAR W/[place] [address] [facility], SURG 5 [facility] PATHOLOGY GROSS&MONIQUE ROSCOPIC EXAM ANES 01712 [place] ZIEMBROS LOWER 5 ANESTHESI I JR EDW INTESTINE A GROUP PS ENDOSCOPY DISTAL DUODENUM COLONOSCO 82051 GASTROENT CASE JUS PY 5 EROLOGY W/BIOPSY AND SINGLE/MU HEPATOL LTIPLE COLSC FLX 24896 GASTROENT CASE JUS W/RMVL 5 EROLOGY OF TUMOR AND POLYP HEPATOL LESION SNARE TQ ALBUMIN 86667 [facility] URINE 5 Y Y [facility] MIN QUANTIATI VE HEMOGLOBI 53390 [facility] N 5 Y Y [facility] SALIMA A1C LIPID 45834 [facility] PANEL 5 Y Y [facility] CREATININ 44202 [facility] E OTHER 5 Y Y [facility] THER 65584 [facility] PROPH/DX 5 N N NJX IV COMMUNTIY COMMUNTIY PUSH HOSPITA HOSPITA SINGLE/1S T SBST/DRUG DRUG SCR G0434 HERI HAM HERI HAM NOT 5 CHROMATOG RAPHIC; ANY NUMBER PT ENC GLUCOSE 33804 [facility] QUANTITAT 5 Y Y [facility] XCPT REAGENT STRIP ANES 04191 [facility] MONIQUE UPPER GI 5 LTH ENDOSCOPY ANESTHESI PROXIMAL A PSC TO DUODENUM ESOPHAGOG 69648 [place] GRAY ASTRODUOD [address] ENOSCOPY SERV [place] [address] [facility] ABDOMINAL 5 Y Y [facility] TIME W/[place] [address] [facility] [place] WAGONER ABDOMEN & 5 RADIOLOGY RAY PELVIS W/O CONTRAST MATERIAL COMPREHEN 99478 [facility] SIVE 5 N N METABOLIC COMMUNTIY COMMUNTIY PANEL HOSPITA HOSPITA HEMOGLOBI 71189 [facility] N 5 N N GLYCOSYLA COMMUNTIY COMMUNTIY SALIMA A1C HOSPITA HOSPITA COLLECTIO 84675 [facility] N VENOUS 5 N N BLOOD COMMUNTIY COMMUNTIY VENIPUNCT HOSPITA HOSPITA URE Encounters Encounter Start End Date Code Location Performer Type Date OFFICE 90521 [facility] 7 7 MEDICAL T VISIT SERV 25 FOUNDATIO MINUTES N [facility] - 7 7 N OUTPATIEN COMMUNTIY T HOSPITA EMERGENCY 78743 [facility] 7 7 ANA M DEPARTMEN EMERGENCY T VISIT PHYS HIGH/URGE NT SEVERITY OFFICE 45655 [facility] 7 7 NURSE T VISIT PRACTITIO 25 NER GR MINUTES OFFICE 41196 [facility] 7 7 DONY, T VISIT ,PSC 25 MINUTES EMERGENCY 66943 [facility] 7 7 ANA M DEPARTMEN EMERGENCY T VISIT PHYS HIGH/URGE NT SEVERITY EMERGENCY 10295 [facility] 7 7 MEDICAL VISIT SERV HIGH FOUNDATIO SEVERITY& N THREAT FUNCJ EMERGENCY 93610 [facility] 7 7 MEDICAL JR DEPARTMEN SERV T VISIT FOUNDATIO MODERATE N SEVERITY EMERGENCY 37206 7 7 HEALTHCAR DEPARTMEN E T VISIT HOSPITALS HIGH/URGE NT SEVERITY HOSPITAL - 7 7 HEALTHCAR OUTPATIEN E T HOSPITALS OFFICE 55650 [place] [facility] 7 ORTHOPEDI T VISIT C 15 ASSOCIAT MINUTES [facility] - 7 7 N OUTPATIEN COMMUNTIY T HOSPITA OFFICE 16565 CHERYLE [facility]UNIOR OUTPATIEN 7 7 ORTHOPEDI T VISIT C 15 ASSOCIAT MINUTES OFFICE 46449 [facility] [place]INA OUTPATIEN 7 7 NURSE T VISIT PRACTITIO 15 NER GR MINUTES EMERGENCY 35585 [facility] 7 7 ANA M - YORBA DEPARTMEN EMERGENCY T VISIT PHYS HIGH/URGE NT SEVERITY EMERGENCY 79921 [facility] 7 7 ANA M E DEPARTMEN EMERGENCY T VISIT PHYS MODERATE SEVERITY EMERGENCY 33893 [facility] CELLAROSI DEPT 7 7 ANA M - YORBA VISIT EMERGENCY HIGH PHYS SEVERITY& THREAT FUNCJ OFFICE 37789 [facility] FAR[facility]LL OUTPATIEN 7 7 Mallika NAPOLES MD,PSC 25 MINUTES OFFICE 66486 [facility] 7 7 ORTHOPEDI T VISIT C 15 ASSOCIAT MINUTES [facility] - 7 7 N OUTPATIEN COMMUNTIY T HOSPITA OFFICE 91258 [place] [facility] 7 7 ORTHOPEDI T VISIT C 15 ASSOCIAT MINUTES [facility] - 7 7 N OUTPATIEN COMMUNTIY T HOSPITA EMERGENCY 88538 [facility] 7 7 ANA M SHANA DEPARTMEN EMERGENCY T VISIT SERVI MODERATE SEVERITY [facility] - 7 7 N OUTPATIEN COMMUNTIY T HOSPITA OFFICE 50760 [facility] CRAFT OUTPATIEN 7 7 Mallika NAPOLES MD,PSC 25 MINUTES [facility] 7 7 N OUTPATIEN COMMUNTIY T HOSPITA OFFICE 91738 [facility] GRUBBS OUTPATIEN 7 7 MEDICAL T VISIT SERV 15 FOUNDATIO MINUTES N OFFICE 61024 [place] ARLETHURIEL OUTPATIEN 7 7 ORTHOPEDI T VISIT C 15 ASSOCIAT MINUTES OFFICE 16940 [facility]IA PEÑ[facility] 6 6 Mallika NAPOLES VISIT ,PSC 25 MINUTES OFFICE 25607 CHERYLE JUNIOR [facility] 6 6 ORTHOPEDI MONIQUE T NEW 45 C MINUTES [facility] - 6 6 Y [facility] T OFFICE 87316 [facility] CAR OUTPATIEN 6 6 NURSE T VISIT PRACTITIO 15 NER GR MINUTES OFFICE 22939 ELVI TOVAR MELISSA [facility] 6 6 T VISIT 15 MINUTES [facility] - 6 N [facility] COMMUNTIY T HOSPITA EMERGENCY 08252 [facility] 6 6 N [facility] COMMUNTIY T VISIT HOSPITA MODERATE SEVERITY OFFICE 50870 [facility]UBIA [facility]LL [facility] 6 6 ISABELA NAPOLES VISIT ,PSC 25 MINUTES OFFICE 50518 [facility] 6 6 MEDICAL HUFNAGEL T VISIT SERV LAR 15 FOUNDATIO MINUTES N OFFICE 47289 [facility] CAR OUTPATIEN 6 6 NURSE T VISIT PRACTITIO 15 NER GR MINUTES [facility] [place] [address] 6 N OUTPATIEN COMMUNTI T HOSPITA OFFICE 16485 [facility] 6 6 YONATHAN NAPOLES VISIT ,PSC 25 MINUTES OFFICE 45573 [facility] CAR OUTPATIEN 6 6 NURSE T VISIT PRACTITIO 15 NER GR MINUTES [facility] 6 6 [facility] [place] [address] 6 N OUTPATIEN COMMUNTIY T HOSPITA OFFICE 34612 [facility] CAR OUTPAT[facility] 6 6 NURSE T VISIT PRACTITIO 15 NER GR MINUTES EMERGENCY 99589 [facility] 6 6 ANA M - YORBA DEPARTMEN EMERGENCY PAT T VISIT PHYS MODERATE SEVERITY [facility] - 6 6 N OUTPATIEN COMMUNTIY T HOSPITA EMERGENCY 54133 [facility] 6 6 N DEPARTMEN COMMUNTIY T VISIT HOSPITA HIGH/URGE NT SEVERITY EMERGENCY 58588 [facility] 6 6 N DEPARTMEN COMMUNTIY T VISIT HOSPITA MODERATE SEVERITY EMERGENCY 05095 [facility] 6 6 ANA M MAR DEPARTMEN EMERGENCY T VISIT SERV HIGH/URGE NT SEVERITY [facility] - 6 6 N OUTPATIEN COMMUNTIY T HOSPITA OFFICE 03397 [facility]IA FARRELL OUTPATIEN 6 6 ISABELA NAPOLES T VISIT ,PSC 25 MINUTES [facility] - 6 6 N OUTPATIEN COMMUNTIY T HOSPITA EMERGENCY 70095 [facility] 6 6 N DEPARTMEN COMMUNTIY T VISIT HOSPITA LIMITED/M INOR PROB EMERGENCY 14897 VASILIY AMANDA 6 6 DANAE DANAE DEPARTMEN T VISIT MODERATE SEVERITY [facility] - 6 6 N OUTPATIEN COMMUNTIY T HOSPITA EMERGENCY 03228 [facility] CE[facility]AROS[facility] 6 6 - YORBA - YORBA DEPARTMEN PAT PAT T VISIT MODERATE SEVERITY OFFICE 15675 [facility] CAR OUTPATI[facility] 6 6 NURSE T VISIT PRACTITIO 15 NER GR MINUTES EMERGENCY 54290 [facility] ANA M LO TRA VISIT EMERGENCY HIGH SERVI SEVERITY& THREAT FUNCJ [facility] 26290 [facility] VISIT COMMUNTIY HIGH HOSPITA SEVERITY& THREAT FUN [facility] 6 6 [facility] 6 6 N OUTPATIEN COMM[facility]TIY [facility] 55530 MARY HERNANDEZ 6 6 SCO SCO DEPARTMEN T VISIT MODERATE SEVERITY EMERGENCY 09657 [facility] 6 6 N DEPARTMEN COMMUNTIY T VISIT HOSPITA HIGH/URGE NT SEVERITY EMERGENCY 67026 [facility] DE[facility] 6 6 CARI CARI VISIT HIGH SEVERITY& THREAT [facility] 56087 [facility] GRUBBS OUTPATIEN 6 6 MEDICAL ARTIE T VISIT SERV 25 FOUNDATIO MINUTES N HOSPITAL [facility] - 6 6 N [facility] 48900 [facility] GRUBBS OUTPATIEN 6 6 MEDICAL ARTIE T VISIT SERV 25 FOUNDATIO MINUTES N HOSPITAL [facility] 6 6 N [facility] 53195 VERNON GRUBBS OUTPATIEN 6 6 MEDICAL ARTIE T VISIT SERV 25 FOUNDATIO MINUTES N [facility]OSP[facility] 6 [facility] - 6 6 N [facility] 6 6 N [facility] - 6 6 N [facility] 6 6 N [facility] 00943 MAGDIEL RUBY OUTPATIEN 6 6 MD ARTURO, T VISIT PSC 10 [facility] MARY - 6 6 [facility] OUTPATIEN INC T OFFICE 59421 SIKHISM APRO VIR OUTPATIEN 5 5 HEALTH T NEW 30 MEDICAL MINUTES [facility] - 5 5 N OUTPATIEN COMMUNTIY T HOSPITA OFFICE 12735 MAGDIEL PUENTES CRI OUTPATIEN 5 5 MD ARTURO, T NEW 45 [facility] MARY - 5 5 [facility] OUTPATIEN INC T OFFICE 22575 MARY OUTPATIEN 5 5 MEM [facility] T [facility] 10 INC [facility] 5 N OUTPATIEN COMMUNTIY T HOSPITA OFFICE 85366 [place] GR[facility] OUTPATIEN 5 5 MEDICAL ARTIE T VISIT SERV 15 FOUNDATIO MINUTES [facility]OSPITAL [facility] - [facility] 44325 GR[facility] GRUBBS OUTPATIEN 5 5 ARTIE ARTIE T VISIT 25 MINUTES HOSPITAL [facility] 5 5 N OUTPATIEN COMMUNTIY T HOSPITA EMERGENCY 42619 MARY HERNANDEZ 5 5 SCO OKO DEPARTMEN T VISIT MODERATE SEVERITY EMERGENCY 81574 [facility] 5 5 N DEPARTMEN COMMUNTIY T VISIT HOSPITA LOW/MODER SEVERITY [facility] N [facility] 5 N OUTPATIEN COMMUNTIY T HOSPITA OFFICE 01608 [facility]UB[facility] OUTPATIEN 5 5 MEDICAL ARTIE T VISIT SERV 15 FOUNDATIO MINUTES N EMERGENCY 65423 [facility] VORKPOR 5 5 CARI CARI DEPARTMEN T VISIT MODERATE SEVERITY OFFICE 26880 [facility] OUTPATIEN 5 5 MEDICAL ARTIE T VISIT SERV 15 FOUNDATIO MINUTES N OFFICE 83844 GASTRO[facility] JUS OUTPATIEN 5 5 EROLOGY T VISIT AND 25 HEPATOL MINUTES OFFICE 25426 [facility] OUTPATIEN 5 5 JAM JAM T NEW 30 MINUTES [facility] 5 5 N OUTPATI COMMUNTIY T [facility] UNIVERSIT - 5 5 Y [facility] T OFFICE 20564 VERNON GRUBBS OUTPATIEN 5 5 MEDICAL ARTIE T NEW 30 SERV MINUTES FOUNDATIO N OFFICE 48844 [facility] OUTPATIEN 5 5 T VISIT 15 MINUTES EMERGENCY 92681 MARY HERNANDEZ 5 5 SCO SCO DEPARTMEN T VISIT HIGH/URGE NT SEVERITY [facility] [place] [address] 5 N OUTPATI COMMUNTIY T HOSPITA OFFICE 94439 HERIPUMA LIRIANO HAM OUTPATIEN 5 5 T NEW 45 MINUTES [facility] UNIVERSIT - 5 5 Y [facility] UNIVERSIT - 5 5 Y [facility] T OFFICE 37088 [facility] OUTPATIEN 5 5 T VISIT 25 MINUTES EMERGENCY 83971 VASILIY AMANDA DEPT 5 5 DANAE DANAE VISIT HIGH SEVERITY& THREAT FUNCJ OFFICE 75383 [facility] OUTPATIEN 5 5 T VISIT 15 MINUTES OFFICE 28109 [facility] OUTPATIEN 5 5 T NEW 30 MINUTES [facility] - 5 5 N OUTPATIEN COMMUNTIY T HOSPITA EMERGENCY 01242 [facility] 5 5 N DEPARTMEN COMMUNTIY T VISIT HOSPITA LOW/MODER SEVERITY EMERGENCY 10108 VASILIY AMANDA 5 5 DANAE [facility] T VISIT MODERATE SEVERITY [facility] [place] [address] 5 N OUTPATIEN [facility] HOSPITA
--- OUTSIDE RECORDS SUMMARY | 2017-05-18 07:37 | External Medical Summary Rpt | CCD ---
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 [place] BRENT ARTL DC 7 MEDICAL ABDL/PEL/ SERV SCROT&/RP FOUNDATIO R ORGN N COM RADIOLOGI 44723 [place] JOVI VALDEZ C 7 MEDICAL EXAMINATI SERV ON CHEST FOUNDATIO SINGLE N VIEW FRONTAL SBSQ 10916 [facility] 7 NURSE CARE/DAY PRACTITIO 35 NER GR MINUTES CRITICAL 64560 [facility] 7 NURSE ILL/INJUR PRACTITIO ED NER GR PATIENT INIT 30-74 MIN RADIOLOGI 50077 [place] PRASANNA C 7 MEDICAL EXAMINATI SERV ON CHEST FOUNDATIO SINGLE N VIEW FRONTAL RADEX 29389 [place] SARA ABDOMEN 1 7 MEDICAL SERV ANTEROPOS FOUNDATIO TERIOR N VIEW RADIOLOGI 46764 [place] DUGGAN C 7 MEDICAL EXAMINATI SERV ON CHEST FOUNDATIO SINGLE N VIEW FRONTAL RADIOLOGI 50248 [place] PRASANNA C 7 MEDICAL EXAMINATI SERV ON CHEST FOUNDATIO SINGLE N VIEW FRONTAL CRITICAL 52790 [facility] 7 NURSE ILL/INJUR PRACTITIO ED NER GR PATIENT INIT 30-74 MIN RADIOLOGI 73335 [place] PRASANNA C 7 MEDICAL EXAMINATI SERV ON CHEST FOUNDATIO SINGLE N VIEW FRONTAL RADIOLOGI 59440 [place] DUGGAN C 7 MEDICAL EXAMINATI SERV ON CHEST FOUNDATIO SINGLE N VIEW FRONTAL ECG 31938 [place] ACACIA ROUTINE 7 MEDICAL ECG SERV W/LEAST FOUNDATIO 12 LDS N I&R ONLY RADIOLOGI 86843 [place] NANCY C 7 MEDICAL EXAMINATI SERV ON CHEST FOUNDATIO SINGLE N VIEW FRONTAL CRITICAL 03611 [facility] 7 NURSE ILL/INJUR PRACTITIO ED NER GR PATIENT INIT 30-74 MIN RADIOLOGI 17765 [place] NANCY C 7 MEDICAL EXAMINATI SERV ON CHEST FOUNDATIO SINGLE N VIEW FRONTAL RADIOLOGI 90259 [place] DUGGAN C 7 MEDICAL EXAMINATI SERV ON CHEST FOUNDATIO SINGLE N VIEW FRONTAL CRITICAL 29130 [facility] 7 NURSE ILL/INJUR PRACTITIO ED NER GR PATIENT INIT 30-74 MIN RADIOLOGI 38525 [place] DUGGAN C 7 MEDICAL EXAMINATI SERV ON CHEST FOUNDATIO SINGLE N VIEW FRONTAL RADIOLOGI 60838 [place] KATIA C 7 MEDICAL EXAMINATI SERV [place] [address] [place] NANCY ANGIOGRAP 7 MEDICAL HY CHEST SERV W/CONTRAS FOUNDATIO T/NONCONT N RAST RADIOLOGI 22795 [place] NANCY C 7 MEDICAL EXAMINATI SERV ON CHEST FOUNDATIO SINGLE N VIEW FRONTAL THORACOSC 99514 [place] REG OPY RMVL 7 MEDICAL INTRAPLEU SERV RAL FOUNDATIO FB/FIBRIN N DEPOSIT INSJ 97966 [facility] NON-TUNNE 7 NURSE LED PRACTITIO CENTRAL NER GR VENOUS CATH AGE 7 YR/> ANES 68717 [place] DORETHA THORACOTO 7 MEDICAL JR MY & SERVICES THORACOSC OPY W/1 LUNG VNTJ CYTP 00626 [facility] CONCENTRA 7 Y OF TION [place] [facility] INTERPRET ATION RADIOLOGI 59840 [place] VERNON C 7 MEDICAL MEDICAL EXAMINATI SERV SERV ON CHEST FOUNDATIO FOUNDATIO SINGLE N N VIEW FRONTAL ECHO 03988 VERNON SERGO TTHRC R-T 7 MEDICAL 2D SERV W/WOM-MOD FOUNDATIO E COMPL N SPEC&COLR D SBSQ 54662 [facility] 7 NURSE CARE/DAY PRACTITIO 35 NER GR MINUTES BRNCHSC 63257 [facility] W/BRNCL 7 NURSE ALVEOLAR PRACTITIO LAVAGE NER GR RADIOLOGI 98110 [place] KATIA C 7 MEDICAL EXAMINATI SERV ON CHEST FOUNDATIO SINGLE N VIEW FRONTAL CT THORAX 52197 [place] KATIA W/O 7 MEDICAL CONTRAST SERV MATERIAL FOUNDATIO N ARTL 66820 [place] ANUEL CATHJ/CAN 7 MEDICAL NULJ SERV MNTR/ABBASI FOUNDATIO SFUSION N SPX PRQ SBSQ 71772 [facility] 7 MEDICAL CARE/DAY SERV 15 FOUNDATIO MINUTES N RADIOLOGI 13353 [place] KATIA C 7 MEDICAL EXAMINATI SERV ON CHEST FOUNDATIO SINGLE N VIEW FRONTAL SBSQ 12292 [facility] 7 MEDICAL CARE/DAY SERV 25 FOUNDATIO MINUTES N RADIOLOGI 23418 [place] PRASANNA C 7 MEDICAL EXAMINATI SERV ON CHEST FOUNDATIO SINGLE N VIEW FRONTAL RADEX 49106 [place] SARA ABDOMEN 1 7 MEDICAL SERV ANTEROPOS FOUNDATIO TERIOR N VIEW INITIAL 65895 [facility] 7 MEDICAL CARE/DAY SERV [address] [place] [address] [facility] MAXILL[facility]FA 7 MEDICAL CIAL W/[place] [address] [facility] ANG[facility] 7 MEDICAL HY HEAD SERV W/CONTRAS FOUNDATIO T/NONCONT N RAST CT LUMBAR 67786 VERNON NICHOL SPINE 7 MEDICAL W/O SERV CONTRAST FOUNDATIO MATERIAL N AMB A0431 [facility] 7 METHODS METHODS CONVNTION [facility] AIR SRVC TRANSP[place] [address] [place] [address] VERNON GANDARA ANGIOGRAP 7 MEDICAL HY CHEST SERV W/CONTR[place] [address] VERNON [facility] ANGIOGRAP 7 MEDICAL HY NECK SERV W/CONTRAS FOUNDATIO T/[place] [address] VERNON GONZALESNICHOL ABDOMEN & 7 MEDICAL PELVIS SERV W/CONTRAS FOUNDATIO T N MATERIAL RADIOLOGI 24862 VERNON [facility] C 7 MEDICAL EXAMINATI SERV ON [place] [address] VERNON GONZALESNICHOL THORACIC 7 MEDICAL SPINE W/[place] [address] VERNON GONZALESNICHOL CERVICAL 7 MEDICAL SPINE W/O SERV CONTRAST [place] [address] [facility] VERNON SHEIRTA JT UPPER 7 RADIOLOGY III EXTREMITY W/O CONTRAST MATRL RADEX HIP 50830 [facility] [place] FAMILIA 7 RADIOLOGY UNILATERA L WITH PELVIS 2-3 VIEWS SIMPLE 11305 [facility] REPAIR 7 ANA M E SCALP/NEC EMERGENCY K/AX/SILVERIO PHYS T/TRUNK 2.5CM/< [place] [address] [facility] [place] BEEBE HEAD/BRAI 7 RADIOLOGY N W/O CONTRAST MATERIAL AMB A0427 JAME JAME SERVICE 7 FAYETTE FAYEE ALS [facility] EMERGENCY COGOVT COGOVT TRANSPORT LEVEL 1 ECG 99969 [facility] CELLAROSI ROUTINE 7 ANA M - YORBA ECG EMERGENCY W/LEAST PHYS 12 LDS I&[place] [address] [facility] [place] CONCEPCIÓN CERVICAL 7 RADIOLOGY SPINE W/O CONTRAST MATERIAL GROUND A0425 JAME JAME MILEAGE 7 FAYETTE FAYETTE PER URBAN URBAN STATUTE COGOVT COGOVT MILE CT LUMBAR 72487 [facility] [place] BEEBE SPINE 7 RADIOLOGY W/O CONTRAST MATERIAL DSTR [address] [facility] [address] AGNT SURGERY SURGERY [facility] FCT ADDL LMBR/SACR AL MOD SED 42094 NUBIA FARRELL SAME 7 LOIDA NAPOLES/XUAN ONOFRE,PSC INITIAL 15 MINS 5/> YRS DSTR [address] [facility] [address] [address] AGNT SURGERY SURGERY [facility] FCT SNGL LMBR/SACR AL DRUG TEST 83763 NUBIA FARRELL PRSMV 7 ORA NAPOLES MD,PSC CHEMISTRY ANALYZERS RADEX 80150 LUIS ANTONIOMUSCOGEEMaisha JUNIOR SHOULDER 7 ORTHOPEDI COMPLETE C MINIMUM 2 ASSOCIAT VIEWS ARTHROCEN 59703 [facility] ANTONIOMUSCOGEEMaisha JUNIOR TESIS 7 ORTHOPEDI ASPIR&/IN C J MAJOR ASSOCIAT JT/BURSA W/O US INJECTION J1030 LUIS ANTONIOMUSCOGEEMaisha JUNIOR 7 ORTHOPEDI METHYLPRE C DNISOLONE ASSOCIAT ACETATE 40 MG IADNA 30813 [facility] HEPATITIS 7 N N C QUANT COMMUNTIY COMMUNTIY & REVERSE HOSPITA HOSPITA TRANSCRIP TION COLLECTIO 60716 [facility] N VENOUS 7 N N BLOOD COMMUNTIY COMMUNTIY VENIPUNCT HOSPITA HOSPITA URE DSTR [address] [facility] [address] AGNT SURGERY SURGERY [facility] FCT SNGL LMBR/SACR AL DSTR [address] [facility] [address] AGNT SURGERY SURGERY [facility] FCT ADDL LMBR/SACR [place] MOD SED 66580 NUBIA FARRELL SAME 7 LOIDA NAPOLES/XUAN ONOFRE,PSC INITIAL 15 MINS 5/> YRS MRI ANY 20349 [facility] [place] KOSTELIC JT LOWER 7 RADIOLOGY EXTREM W/[place] [address] [facility] PHOSPHORU 7 Cassy NAPOLES MD,[facility] INORGANIC BILIRUBIN 58664 [facility] DIRECT 7 MD DONY,[facility] COMPREHEN 07764 [facility] SIVE 7 NEWTON NAPOLES MD,[facility] PANEL BLOOD 71900 [facility] COUNT 7 DAVE NAPOLES MD,[facility] AUTO&AUTO DIFRNTL WBC COLLECTIO 96917 [facility] N VENOUS 7 ARIS NAPOLES MD,[facility] [address] [facility] GLUTAMYLT 7 SOUTH [place]APOLES MD,[place] [address] [facility] [place] SCALF ABDOMINAL 7 RADIOLOGY REAL TIME W/IMAGE LIMITED RADEX HIP 51653 [facility] 7 ORTHOPEDI UNILATERA C L WITH ASSOCIAT PELVIS 2-3 VIEWS RADIOLOGI 80362 [facility] ORTHOPEDI EXAMINATI C ON KNEE 3 ASSOCIAT VIEWS DRUG TEST G0479 [facility] 6 VIVIAN NAPOLES;Radha ONOFRE,[facility] NSTRUMENT ED CHEMISTRY ANLYZER ARTHROCEN 92162 [place] VERNON LOWEIS 6 ORTHOPEDI MONIQUE ASPIR&/IN C J MAJOR ASSOCIAT JT/BURSA W/O US CANE E0105 J & L J & L QUAD/3-ME 6 HOME HOME VANDANA ALL [facility]ICAL MEDICAL MATL EQUIPMENT EQUIPMENT ADJUSTBL/ FIX W/TIPS KO ELAST L1820 [facility] W/CONDYLR 6 BRACING, BRACING, PADS&JNT INC INC PRFAB INCL FIT&ADJ RADIOLOGI 81955 [facility] SPALDINGMaisha JUNIOR EXAM 6 ORTHOPEDI MONIQUE KNEE C COMPLETE ASSOCIAT 4/MORE VIEWS INJECTION J1030 [place] VERNON 6 ORTHOPEDI MONIQUE METHYLPRE C DNISOLONE ASSOCIAT ACETATE 40 MG IM ADM 45996 [facility] KALINA CAR PRQ ID 6 NURSE SUBQ/IM PRACTITIO NJXS 1 NER GR VACCINE LIPID 17689 [facility] 6 Y [facility] HEMOGLOBI 70012 [facility] 6 Y Y GLYCOSYLA [facility] SALIMA A1C COMPREHEN 26618 [facility] 6 Y Y METABOLIC [facility] PANEL IIV4 VACC 98024 S KALINA CAR PRESRV 6 NURSE FREE 0.5 PRACTITIO ML FOR IM NER GR USE COMPUTERI 25649 BOLES MELISSA BOLES MELISSA ZED 6 OPHTHALMI C IMAGING OPTIC NERVE VISUAL 80709 BOLES MELISSA BOLES MELISSA FIELD XM 6 UNI/BI W/INTERP EXTENDED EXAM INCISION 75590 [facility] & 6 ANA M DANAE DRAINAGE EMERGENCY ABSCESS PHYS COMPLICAT ED/MULTIP LE DRAINAGE 59268 [facility] SCROTAL 6 N N WALL COMMUNTIY COMMUNTIY ABSCESS HOSPITA HOSPITA INJECTION J2001 [facility] 6 N N LIDOCAINE COMMUNTIY COMMUNTIY HCL HOSPITA HOSPITA INTRAVENO US INF[place] [address] [place] [address] NUBIA FARRELL GLUTAMYLT 6 ISABELA NAPOLES MD,PSC GAMMA COLLECTIO 95313 NUBIA FARRELL N VENOUS 6 ISABELA NAPOLES BLOOD ,PSC VENIPUNCT URE DRUG TEST G0479 ISABELA HANNAH PRESUMP;I ,PSC NSTRUMENT ED CHEMISTRY ANLYZER BLOOD 11024 NUBIA FARRELL COUNT 6 ISABELA NAPOLES COMPLETE ,PSC AUTO&AUTO DIFRNTL WBC COMPREHEN 49524 NUBIA FARRELL SIVE 6 ISABELA NAPOLES METABOLIC ,PSC PANEL BILIRUBIN 31844 NUBIA FARRELL DIRECT 6 ISABELA NAPOLES MD,[place] [address] NUBIA FARRELL PHOSPHORU 6 ISABELA NAPOLES MD,PSC INORGANIC REMOVAL 25560 [facility] KALINA CAR IMPACTED 6 NURSE CERUMEN PRACTITIO IRRIGATIO NER GR N/LVG UNILAT IADNA 41270 [facility] HEPATITIS 6 N N C QUANT COMMUNTIY COMMUNTIY & REVERSE HOSPITA HOSPITA TRANSCRIP TION COLLECTIO 58976 [facility] N VENOUS 6 N N BLOOD COMMUNTIY COMMUNTIY VENIPUNCT HOSPITA HOSPITA URE COMPREHEN 65894 [facility] SIVE 6 N N METABOLIC COMMUNTIY COMMUNTIY PANEL HOSPITA HOSPITA BLOOD 24871 [facility] COUNT 6 N N COMPLETE COMMUNTIY COMMUNTIY AUTO&AUTO HOSPITA HOSPITA DIFRNTL WBC DRUG TEST G0479 NUBIA CRAFT 6 YONATHAN NAPOLES PRESUMP;I ,PSC NSTRUMENT ED CHEMISTRY ANLYZER SHVG SKIN 50132 [facility] KALINA CAR LESION 1 6 NURSE PRACTITIO TRUNK/ARM NER GR /LEG DIAM 0.6-1[place] [address] [facility] CORNEA SURG 6 Y OF VIR PATHOLOGY [facility] GROSS&MONIQUE ROSCOPIC EXAM IADNA 76301 [facility] HEPATITIS 6 N N C QUANT COMMUNTIY COMMUNTIY & REVERSE HOSPITA HOSPITA TRANSCRIP TION COLLECTIO 82189 [facility] N VENOUS 6 N N BLOOD COMMUNTIY COMMUNTIY VENIPUNCT HOSPITA HOSPITA URE COMPREHEN 25694 [facility] SIVE 6 N N METABOLIC COMMUNTIY COMMUNTIY PANEL HOSPITA HOSPITA BLOOD 36316 [facility] COUNT 6 N N COMPLETE COMMUNTIY COMMUNTIY AUTOMATED HOSPITA HOSPITA INCISION 05329 [facility] & 6 N N DRAINAGE COMMUNTIY COMMUNTIY ABSCESS HOSPITA HOSPITA SIMPLE/SI NGLE INCISION 44959 [facility] CELLAROSI & 6 ANA M - YORBA DRAINAGE EMERGENCY PAT ABSCESS PHYS COMPLICAT ED/MULTIP LE DSTR 91117 NUBIA CRAFT NROLYTC 6 YONATHAN NAPOLES MD,PSC PARVERTEB FCT ADDL LMBR/SACR AL DSTR 06984 NUBIA CRAFT NROLYTC 6 YONATHAN NAPOLES MD,PSC PARVERTEB FCT SNGL LMBR/SACR AL MODERATE 40495 NUBIA ALVARADOCAPRI SEDATJ 6 YONATHAN NAPOLES SAME, MD,PSC PHYS/QHP 5/>YRS INIT 30 MIN RADEX 27210 [facility] [place] FAMILIA RIBS UNI 6 RADIOLOGY RHO W/POSTERO ANT CH MINIMUM 3 VIEWS MODERATE 84017 NUBIA ALVARADONAKULP SEDATJ 6 YONATHAN NAPOLES SAME, MD,PSC PHYS/QHP 5/>YRS INIT 30 MIN DSTR 55909 NUBIA ALVARADONAKULP NROLYTC 6 YONATHAN NAPOLES MD,PSC PARVERTEB FCT SNGL LMBR/SACR AL DSTR 21728 NUBIA PEÑAP NROLYTC 6 YONATHAN NAPOLES MD,PSC PARVERTEB FCT ADDL LMBR/SACR AL LUMB L0642 NUBIA ALVARADONAKULP ORTHOS 6 YONATHAN NAPOLES MD,PSC [place] [address] NUBIA FARRELL PHOSPHORU 6 ISABELA NAPOLES MD,PSC INORGANIC BILIRUBIN 14202 NUBIA FARRELL DIRECT 6 ISABELA NAPOLES MD,PSC COMPREHEN 31390 NUBIA FARRELL SIVE 6 ISABELA NAPOLES METABOLIC ,PSC PANEL BLOOD 94645 NUBIA FARRELL COUNT 6 ISABELA NAPOLES COMPLETE ,PSC AUTO&AUTO DIFRNTL WBC DRUG TEST G0479 NUBIA FARRELL 6 ISABELA NAPOLES PRESUMP;I ,PSC NSTRUMENT ED CHEMISTRY ANLYZER COLLECTIO 51441 NUBIA FARRELL N VENOUS 6 ISABELA NAPOLES BLOOD ,[place] [address] NUBIA FARRELL GLUTAMYLT 6 ISABELA NAPOLES MD,PSC GAMMA RADEX 59257 [facility] [place] SHERITA FOOT 6 RADIOLOGY III COMPLETE MINIMUM 3 VIEWS CRITICAL 22485 [facility] 6 ANA M HUG ILL/INJUR PHYSICIAN ED SERVI PATIENT INIT 30-74 MIN AMB A0427 [facility] 6 NANCY CRUZ ALS CO EMS CO EMS [place] [address] [facility] [place] SCALF CARLIE HEAD/BRAI 6 RADIOLOGY N W/O CONTRAST MATERIAL GROUND A0425 [facility] MILEAGE 6 N-DENILSON Peng-DENILSON PER CO EMS CO EMS STATUTE MILE GROUND A0425 [facility] MILEAGE 6 N-DENILSON Peng-DENILSON PER CO EMS CO EMS STATUTE MILE AMBULANCE A0429 [facility] SERVICE 6 N-DENILSON N-DENILSON BLS CO EMS [place] [address] [facility] TROPONIN 6 N N QUANTITAT COMMUNTIY COMMUNTIY JOSE F HOSPITA HOSPITA GLUC BLD 22839 [facility] GLUC MNTR 6 N N DEV COMMUNTIY COMMUNTIY CLEARED HOSPITA HOSPITA FDA SPEC HOME USE KETONE 46686 [facility] BODIES 6 N N SERUM COMMUNTIY COMMUNTIY QUALITATI HOSPITA HOSPITA VE BLOOD 39722 [facility] COUNT 6 N N COMPLETE COMMUNTIY COMMUNTIY AUTO&AUTO HOSPITA HOSPITA DIFRNTL WBC COMPREHEN 19080 [facility] SIVE 6 N N METABOLIC COMMUNTIY COMMUNTIY PANEL HOSPITA HOSPITA RADIOLOGI 08823 [facility] C 6 N N EXAMINATI COMMUNTIY COMMUNTIY ON CHEST HOSPITA HOSPITA SINGLE VIEW FRONTAL COLLECTIO 69153 [facility] N VENOUS 6 N N BLOOD COMMUNTIY COMMUNTIY [place] [address] [facility] AMMONIA 6 N N COMMUNTIY COMMUNTIY HOSPITA HOSPITA THER 53285 [facility] PROPH/DX 6 N N NJX IV COMMUNTIY COMMUNTIY PUSH HOSPITA HOSPITA SINGLE/1S T SBST/DRUG ECG 76777 [facility] ROUTINE 6 N N ECG COMMUNTIY COMMUNTIY W/LEAST HOSPITA HOSPITA 12 LDS TRCG ONLY W/O I&[place] [address] [facility] INFUSION 6 N N HYDRATION COMMUNTIY COMMUNTIY EACH HOSPITA HOSPITA ADDITIONA L HOUR INFUSION J7030 [facility] NORMAL 6 N N SALINE COMMUNTIY COMMUNTIY SOLUTION HOSPITA HOSPITA 1000 CC MODERATE 08832 VENANCIO ALVARADORIWisam SEDATJ 6 DEN DEN SAME PHYS/QHP 5/>YRS INIT 30 MIN NJX 10745 [facility] DX/THER [address] AGT PVRT SURGERY SURGERY FACET JT CENTER CENTER LMBR/SAC 1 LEVEL NJX 56145 JENN[facility]IP JENNYRIP DX/THER 6 DEN DEN AGT PVRT FACET JT LMBR/SAC 2ND LEVEL DRUG TEST G0479 [facility] 6 DEN DEN PRESUMP;I NSTRUMENT ED CHEMISTRY ANLYZER CREATININ 76139 [facility] JENN[facility] E OTHER 6 DEN DEN SOURCE COLLECTIO 49225 [facility] N VENOUS 6 N N BLOOD COMMUNTIY COMMUNTIY VENIPUNCT HOSPITA HOSPITA URE BLOOD 68890 [facility] COUNT 6 N N COMPLETE COMMUNTIY COMMUNTIY AUTOMATED HOSPITA HOSPITA COMPREHEN 76079 [facility] SIVE 6 N N METABOLIC COMMUNTIY COMMUNTIY PANEL HOSPITA HOSPITA COMPREHEN 78927 [facility] SIVE 6 N N METABOLIC COMMUNTIY COMMUNTI[place] [address] [facility] LIPASE 6 N N COMMUNTIY COMMUNTIY HOSPITA HOSPITA PROTHROMB 29461 [facility] IN TIME 6 N N COMMUNTIY COMMUNTIY HOSPITA HOSPITA BLOOD 71015 [facility] COUNT 6 N N COMPLETE COMMUNTIY COMMUNTIY AUTO&AUTO HOSPITA HOSPITA DIFRNTL WBC URNLS DIP 96021 [facility] 6 N N STICK/TAB COMMUNTIY COMMUNTIY LET HOSPITA HOSPITA REAGENT AUTO MICROSCOP Y BLOOD 08146 [facility] OCCULT 6 N N PEROXIDAS COMMUNTIY COMMUNTIY E ACTV HOSPITA HOSPITA QUAL FECES 1-3 SPEC COLLECTIO 70069 [facility] N VENOUS 6 N N BLOOD COMMUNTIY COMMUNTIY VENIPUNCT HOSPITA HOSPITA URE THROMBOPL 45876 [facility] ASTIN 6 N N TIME COMMUNTIY COMMUNTIY PARTIAL HOSPITA HOSPITA PLASMA/[place] [address] [facility] AMYLASE 6 N N COMMUN[place] [address] [facility] INFUSION 6 N N THERAPY/P COMMUNTIY COMMUNTIY ROPHYLAXI HOSPITA HOSPITA S /DX 1ST TO 1 HR THERAPEUT 74866 [facility] IC 6 N N INJECTION COMMUNTIY COMMUNTIY IV PUSH HOSPITA HOSPITA EACH NEW DRUG INJECTION [id number] [facility] MORPHINE 6 N N SULFATE COMMUNTIY COMMUNTIY UP TO 10 [place] [address] [facility] INFUSION 6 N N THERAPY COMMUNTIY COMMUNTIY PROPHYLAX HOSPITA HOSPITA IS/DX EA HOUR COLLECTIO 52192 [facility] N VENOUS 6 N N BLOOD COMMUNTIY COMMUNTIY VENIPUNCT HOSPITA HOSPITA URE BLOOD 86749 [facility] COUNT 6 N N COMPLETE COMMUNTIY COMMUNTIY AUTOMATED HOSPITA HOSPITA COMPREHEN 74364 [facility] SIVE 6 N N METABOLIC COMMUNTIY COMMUNTIY PANEL HOSPITA HOSPITA RADIOLOGI 15417 [facility] [place] [facility] C EXAM 6 RADIOLOGY RHO CHEST 2 VIEWS FRONTAL&L ATERAL HEMOGLOBI 75675 [facility] 6 Y Y [facility] SALIMA A1C DRUG TEST G0479 [facility] 6 N N PRESUMP;I COMMUNTIY COMMUNTIY NSTRUMENT HOSPITA HOSPITA ED CHEMISTRY ANLYZER COLLECTIO 98215 [facility] N VENOUS 6 N N BLOOD COMMUNTIY COMMUNTIY VENIPUNCT HOSPITA HOSPITA URE IAADIADOO 52717 [facility] 6 MEDICAL [place] [address] [facility] [place] [facility] ABDOMINAL 6 RADIOLOGY RHO REAL TIME W/IMAGE LIMITED ECG 32437 [facility] [place] ROUTINE 6 VIC [place] ECG MD,PSC W/LEAST 12 LDS W/I&R COLLECTIO 20817 [facility] N VENOUS 6 N N BLOOD COMMUNTIY COMMUNTIY VENIPUN[place] [address] [facility] IRON 6 N N COMMUNTIY COMMUNTIY HOSPITA HOSPITA HEPATITIS 92528 [facility] A 6 N N ANTIBODY COMMUNTIY COMMUNTIY HAAB HOSPITA HOSPITA HFE 69015 [facility] HEMOCHROM 6 N N ATOSIS COMMUNTIY COMMUNTIY GENE ANAL HOSPITA HOSPITA COMMON VARIANTS APOLIPOPR 41528 [facility] OTEIN 6 N N EACH COMMUNTIY [place] [address] [facility] HAPTOGLOB 6 N N IN COMMUNTIY COMMUNTIY QUANTITAT [place] [address] [facility] GLUTAMYLT 6 N N RASE COMMUNTIY COMMUNTIY GAMMA HOSPITA HOSPITA ALPHA-FET 25463 [facility] OPROTEIN 6 N N SERUM COMMUNTIY COMMUNTIY HOSPITA HOSPITA IRON 88371 [facility] BINDING 6 N N CAPACITY COMMUNTIY COMMUNTIY HOSPITA HOSPITA ALPHA-1-A 94878 [facility] NTITRYPSI 6 N N N TOTAL COMMUNTIY COMMUNTIY HOSPITA HOSPITA ALPHA-1-A 49005 [facility] NTITRYPSI 6 N N N COMMUNTIY COMMUNTIY PHENOTYPE HOSPITA HOSPITA DRUG TEST G0479 [facility] 6 N N PRESUMP;I COMMUNTIY COMMUNTIY NSTRUMENT HOSPITA HOSPITA ED CHEMISTRY ANLYZER BLOOD 28157 [facility] COUNT 6 N N COMPLETE COMMUNTIY COMMUNTIY AUTOMATED HOSPITA HOSPITA COMPREHEN 61018 [facility] SIVE 6 N N METABOLIC COMMUNTIY COMMUNTIY PANEL HOSPITA HOSPITA PROTHROMB 83032 [facility] IN TIME 6 N N COMMUNTI[place] [address] [facility] FERRITIN 6 N N COMMUNTIY COMMUNTIY HOSPITA HOSPITA HEPATITIS 30191 [facility] B CORE 6 N N ANTIBODY COMMUNTIY COMMUNTIY HBCAB HOSPITA HOSPITA TOTAL HEPATITIS 46206 [facility] B SURF 6 N N ANTIBODY COMMUNTIY COMMUNTI[place] [address] [facility] HEPATITIS 6 N N B COMMUNTIY COMMUNTIY SURFACE HOSPITA HOSPITA ANTIGEN DRUG TEST G0479 [facility] 6 N N PRESUMP;I COMMUNTIY COMMUNTIY NSTRUMENT HOSPITA HOSPITA ED CHEMISTRY ANLYZER DRUG 07974 MARY HERNANDEZ SCREENING 6 [facility] COCA[employer] INC DRUG TST G0477 MARY HERNANDEZ PRESUMP;C 6 [facility] PBL [facility] INC READ DC OPT OBV ONLY THERAPEUT 29527 [facility] IC PX 1/> 5 N N AREAS COMMUNTIY COMMUNTIY EACH 15 [place] [address] [facility] 1/> AREAS 5 N N EACH 15 COMMUNTIY COMMUNTIY MIN HOSPITA HOSPITA NEUROMUSC REEDUCA THERAPEUT 39719 [facility] IC PX 1/> 5 N N AREAS COMMUNTIY COMMUNTIY EACH 15 HOSPITA HOSPITA MIN EXERCISES E-STIM [id number] [facility] 1/> AREAS 5 N N OTH THAN COMMUNTIY COMMUNTIY WND CARE HOSPITA HOSPITA PART TX PLAN TOBACCO 80215 [facility] VIR USE [facility] INTERMEDI ATE 3-10 MINUTES PHYSICAL 11769 [facility] THERAPY 5 N N EVALUATIO COMMUNTIY COMMUNTIY N HOSPITA HOSPITA SELF-CARE 95215 [facility] /HOME 5 N N MGMT COMMUNTIY COMMUNTIY TRAINING HOSPITA HOSPITA EACH 15 MINUTES 85210 [facility] [place] RETROPERI 5 RADIOLOGY RHO TONEAL REAL TIME W/IMAGE LIMITED DUP-SCAN 25333 [facility] ARTL DC 5 N N ABDL/PEL/ COMMUNTIY COMMUNTIY SCROT&/RP HOSPITA HOSPITA R ORGN LMT BLOOD 31255 [facility] 5 Y Y [facility]PLETE HOSPITAL HOSPITAL AUTOMATED COMPREHEN 98363 [facility] PANEL ECG 08791 [place] ROUTINE 5 MEDICAL ARTIE ECG SERV W/LEAST FOUNDATIO 12 LDS N W/I&[place] [address] [facility] BLOOD/URI 5 N N C ACID COMMUNTIY COMMUNTIY HOSPITA HOSPITA SEDIMENTA 44549 [facility] TION RATE 5 N N RBC COMMUNTIY COMMUNTIY AUTOMATED HOSPITA HOSPITA COLLECTIO 06001 [facility] N VENOUS 5 N N BLOOD COMMUNTIY COMMUNTIY VENIPUNCT HOSPITA HOSPITA URE COMPREHEN 38819 [facility] SIVE 5 N N METABOLIC COMMUNTIY COMMUNTIY PAN[place] [address] [facility] [place] SHERITA JT LOWER 5 RADIOLOGY III EXTREM W/O CONTRAST MATRL BLOOD 18085 [facility] COUNT 5 N N COMPLETE COMMUNTIY COMMUNTIY AUTOMATED HOSPITA HOSPITA KNEE L1812 [facility] 5 TECHNOLOG TECHNOLOG ELASTIC IES INC IES INC WITH JOINTS PREFAB RADIOLOGI 83766 [facility] C EXAM 5 N N BOTH COMMUNTIY COMMUNTIY KNEES HOSPITA HOSPITA STANDING ANTEROPOS T RADIOLOGI 65413 [facility] C 5 N N EXAMINATI COMMUNTIY COMMUNTIY ON KNEE HOSPITA HOSPITA 1/2 VIEWS RADIOLOGI 40449 [facility] [place] FAMIL[place] C 5 RADIOLOGY RHO EXAMINATI ON KNEE 3 VIEWS FUNDUS 38935 [facility] [place] PHOTOGRAP 5 JAM JAM HY W/INTERPR ETATION & REPORT MRI 07045 [facility] [place] SH[place] SPINAL 5 RADIOLOGY III ROMÁN CANAL LUMBAR W/[place] [address] [facility], SURG 5 [facility] PATHOLOGY GROSS&MONIQUE ROSCOPIC EXAM ANES 99270 [place] ZIEMBROS LOWER 5 ANESTHESI I JR EDW INTESTINE A GROUP PS ENDOSCOPY DISTAL DUODENUM COLONOSCO 45932 GASTROENT CASE JUS PY 5 EROLOGY W/BIOPSY AND SINGLE/MU HEPATOL LTIPLE COLSC FLX 83794 GASTROENT CASE JUS W/RMVL 5 EROLOGY OF TUMOR AND POLYP HEPATOL LESION SNARE TQ ALBUMIN 47821 [facility] URINE 5 Y Y [facility] MIN QUANTIATI VE HEMOGLOBI 30685 [facility] N 5 Y Y [facility] SALIMA A1C LIPID 00740 [facility] PANEL 5 Y Y [facility] CREATININ 71656 [facility] E OTHER 5 Y Y [facility] THER 80774 [facility] PROPH/DX 5 N N NJX IV COMMUNTIY COMMUNTIY PUSH HOSPITA HOSPITA SINGLE/1S T SBST/DRUG DRUG SCR G0434 HERI HAM HERI HAM NOT 5 CHROMATOG RAPHIC; ANY NUMBER PT ENC GLUCOSE 17013 [facility] QUANTITAT 5 Y Y [facility] XCPT REAGENT STRIP ANES 75371 [facility] BUNDY MONIQUE UPPER GI 5 LTH ENDOSCOPY ANESTHESI PROXIMAL A PSC TO DUODENUM ESOPHAGOG 50800 [place] GRAY ASTRODUOD [address] ENOSCOPY SERV [place] [address] [facility] ABDOMINAL 5 Y Y [facility] HOSPITAL TIME W/[place] [address] [facility] [place] ABDOMEN & 5 RADIOLOGY RAY PELVIS W/O CONTRAST MATERIAL COMPREHEN 78067 [facility] SIVE 5 N N METABOLIC COMMUNTIY COMMUNTIY PANEL HOSPITA HOSPITA HEMOGLOBI 60048 [facility] N 5 N N GLYCOSYLA COMMUNTIY COMMUNTIY SALIMA A1C HOSPITA HOSPITA COLLECTIO 87192 [facility] N VENOUS 5 N N BLOOD COMMUNTIY COMMUNTIY VENIPUNCT HOSPITA HOSPITA URE Encounters Encounter Start End Date Code Location Performer Type Date OFFICE 42452 [facility] 7 7 MEDICAL T VISIT SERV 25 FOUNDATIO MINUTES N HOSPITAL [facility] - 7 7 N OUTPATIEN COMMUNTIY T HOSPITA EMERGENCY 27131 [facility] 7 7 ANA M DEPARTMEN EMERGENCY T VISIT PHYS HIGH/URGE NT SEVERITY OFFICE 80943 [facility] [place] 7 7 NURSE T VISIT PRACTITIO 25 NER GR MINUTES OFFICE 48488 [facility] 7 7 DONY, T VISIT ,PSC 25 MINUTES EMERGENCY 84223 [facility] 7 7 ANA M DEPARTMEN EMERGENCY T VISIT PHYS HIGH/URGE NT SEVERITY EMERGENCY 22855 [facility] 7 7 MEDICAL VISIT SERV HIGH FOUNDATIO SEVERITY& N THREAT FUNCJ EMERGENCY 84040 [facility] 7 7 MEDICAL JR DEPARTMEN SERV T VISIT FOUNDATIO MODERATE N SEVERITY EMERGENCY 21519 7 7 HEALTHCAR DEPARTMEN E T VISIT HOSPITALS HIGH/URGE NT SEVERITY [facility]OSPITAL - 7 7 HEALTHCAR OUTPATIEN E T HOSPITALS OFFICE 69052 [facility] 7 ORTHOPEDI T VISIT C 15 ASSOCIAT MINUTES [facility] - 7 7 N OUTPATIEN COMMUNTIY T HOSPITA OFFICE 27612 CHERYLE JUNIOR OUTPATIEN 7 7 ORTHOPEDI T VISIT C 15 ASSOCIAT MINUTES OFFICE 45393 [facility] KALINA OUTPATIEN 7 7 NURSE T VISIT PRACTITIO 15 NER GR MINUTES EMERGENCY 07605 [facility] 7 7 ANA M - YORBA DEPARTMEN EMERGENCY T VISIT PHYS HIGH/URGE NT SEVERITY EMERGENCY 04746 [facility] 7 7 ANA M E DEPARTMEN EMERGENCY T VISIT PHYS MODERATE SEVERITY EMERGENCY 76536 [facility] CELLAROSI DEPT 7 7 ANA M - YORBA VISIT EMERGENCY HIGH PHYS SEVERITY& THREAT FUNCJ OFFICE 79574 DELACRUZLEXX FARRELL OUTPATIEN 7 7 Mallika NAPOLES MD,PSC 25 MINUTES OFFICE 81067 LUIS ANTONIOMUSCOGEEMaisha JUNIOR OUTPATIEN 7 7 ORTHOPEDI T VISIT C 15 ASSOCIAT MINUTES [facility]PITAL [facility] - 7 7 N OUTPATIEN COMMUNTIY T HOSPITA OFFICE 13404 [place] [facility] 7 7 ORTHOPEDI T VISIT C 15 ASSOCIAT MINUTES HOSPITAL [facility] - 7 7 N OUTPATIEN COMMUNTIY T HOSPITA EMERGENCY 87855 [facility] 7 7 ANA M SHANA DEPARTMEN EMERGENCY T VISIT SERVI MODERATE SEVERITY [facility]OSPITAL [facility] - 7 7 N OUTPATIEN COMMUNTIY T HOSPITA OFFICE 90810 NUBIA CRAFT OUTPATIEN 7 7 Mallika NAPOLES MD,PSC 25 MINUTES [facility] 7 7 N OUTPATIEN COMMUNTIY T HOSPITA OFFICE 82135 [facility] GRUBBS OUTPATIEN 7 7 MEDICAL T VISIT SERV 15 FOUNDATIO MINUTES N OFFICE 73172 [place] ARLETHURIEL OUTPATIEN 7 7 ORTHOPEDI T VISIT C 15 ASSOCIAT MINUTES OFFICE 05410 [facility]UBIA PEÑA [facility] 6 6 Mallika NAPOLES VISIT ,PSC 25 MINUTES OFFICE 38000 CHERYLE JUNIOR [facility] 6 6 ORTHOPEDI MONIQUE T NEW 45 C MINUTES [facility] - 6 6 Y [facility] T OFFICE 13758 [facility] KALINA CAR OUTPATIEN 6 6 NURSE T VISIT PRACTITIO 15 NER GR MINUTES OFFICE 39925 ELVI TOVAR MELISSA [facility] 6 6 T VISIT 15 MINUTES [facility]PITAL [facility] - 6 N [facility] COMMUNTIY T HOSPITA EMERGENCY 90187 [facility] 6 6 N [facility] COMMUNTIY T VISIT HOSPITA MODERATE SEVERITY OFFICE 26059 NUBIA FARRELL [facility] 6 6 ISABELA NAPOLES VISIT ,PSC 25 MINUTES OFFICE 25670 [facility] 6 6 MEDICAL HUFNAGEL T VISIT SERV LAR 15 FOUNDATIO MINUTES N OFFICE 19880 [facility] KALINA CAR OUTPATIEN 6 6 NURSE T VISIT PRACTITIO 15 NER GR MINUTES [facility] [place] [address] 6 N OUTPATIEN COMMUNTI T HOSPITA OFFICE 43455 [facility] 6 6 YONATHAN NAPOLES VISIT ,PSC 25 MINUTES OFFICE 95647 [facility] KALINA CAR OUTPATIEN 6 6 NURSE T VISIT PRACTITIO 15 NER GR MINUTES [facility] - 6 [facility] [place] [address] 6 N OUTPATIEN COMMUNTIY T HOSPITA OFFICE 14078 [facility] KALINA CAR OUTPATIEN 6 6 NURSE T VISIT PRACTITIO 15 NER GR MINUTES EMERGENCY 27466 [facility] 6 6 ANA M - YORBA DEPARTMEN EMERGENCY PAT T VISIT PHYS MODERATE SEVERITY [facility]OSPITAL [facility] - 6 6 N OUTPATIEN COMMUNTIY T HOSPITA EMERGENCY 83853 [facility] 6 6 N DEPARTMEN COMMUNTIY T VISIT HOSPITA HIGH/URGE NT SEVERITY EMERGENCY 39257 [facility] 6 6 N DEPARTMEN COMMUNTIY T VISIT HOSPITA MODERATE SEVERITY EMERGENCY 92129 [facility] 6 6 ANA M MAR DEPARTMEN EMERGENCY T VISIT SERV HIGH/URGE NT SEVERITY HOSPITAL [facility] - 6 6 N OUTPATIEN COMMUNTIY T HOSPITA OFFICE 55103 NUBIA FARRELL OUTPATIEN 6 6 ISABELA NAPOLES T VISIT ,PSC 25 MINUTES HOSPITAL [facility] - 6 6 N OUTPATIEN COMMUNTIY T HOSPITA EMERGENCY 74377 [facility] 6 6 N DEPARTMEN COMMUNTIY T VISIT HOSPITA LIMITED/M INOR PROB EMERGENCY 76409 VASILIY AMANDA 6 6 DANAE DANAE DEPARTMEN T VISIT MODERATE SEVERITY [facility]PITAL [facility] - 6 6 N OUTPATIEN COMMUNTIY T HOSPITA EMERGENCY 27308 [facility] CE[facility] 6 6 - YORBA - YORBA DEPARTMEN PAT PAT T VISIT MODERATE SEVERITY OFFICE 23300 [facility] KALINA CAR OUTPATIEN 6 6 NURSE T VISIT PRACTITIO 15 NER GR MINUTES EMERGENCY 39637 [facility] 6 ANA M LO TRA VISIT EMERGENCY HIGH SERVI SEVERITY& THREAT FUNCJ EMERGENCY 95266 [facility] N VISIT COMMUNTIY HIGH HOSPITA SEVERITY& THREAT [facility] - 6 6 [facility] - 6 6 N OUTPATIEN [facility] 44154 MARY HERNANDEZ 6 6 SCO SCO DEPARTMEN T VISIT MODERATE SEVERITY EMERGENCY 67750 [facility] 6 6 N DEPARTMEN COMMUNTIY T VISIT HOSPITA HIGH/URGE NT SEVERITY EMERGENCY 98851 [facility] DEPT 6 6 CARI CARI VISIT HIGH SEVERITY& THREAT [facility] - 6 6 N [facility] 36653 [facility] GRUBBS OUTPATIEN 6 6 MEDICAL ARTIE T VISIT SERV 25 FOUNDATIO MINUTES N HOSPITAL [facility] - 6 6 N [facility] OFF[facility] 73845 [facility] GRUBBS OUTPATIEN 6 6 MEDICAL ARTIE T VISIT SERV 25 FOUNDATIO MINUTES N HOSPITAL [facility] - 6 6 N [facility] 68324 [facility] GRUBBS OUTPATIEN 6 6 MEDICAL ARTIE T VISIT SERV 25 FOUNDATIO MINUTES N [facility]OSPITAL [facility] - [facility] - 6 6 N [facility] - 6 6 N [facility] - 6 6 N [facility] - 6 6 N [facility] - 6 6 [facility] 00046 MAGDIEL RUBY OUTPATIEN 6 6 MD ARTURO, T VISIT PSC 10 [facility] MARY - 6 6 [facility] OUTPATIEN INC T OFFICE 32275 [facility] VIR OUTPATIEN 5 5 HEALTH T NEW 30 MEDICAL MINUTES [facility] [place] - 5 5 N OUTPATIEN COMMUNTIY T HOSPITA OFFICE 04263 MAGDIEL PUENTES CRI OUTPATIEN 5 5 MD ARTURO, T NEW 45 [facility] MARY - 5 5 [facility] OUTPATIEN INC T OFFICE 05108 MARY OUTPATIEN 5 5 MEM H[facility] T [facility] 10 INC [facility] - 5 5 N OUTPATIEN COMMUNTIY T HOSPITA OFFICE 86642 [place] GRUB[facility] OUTPATIEN 5 5 MEDICAL ARTIE T VISIT SERV 15 FOUNDATIO MINUTES [facility] 95194 GRUBBS GRUBBS OUTPATIEN 5 5 ARTIE ARTIE T VISIT 25 MINUTES [facility] - 5 5 N OUTPATIEN COMMUNTIY T HOSPITA EMERGENCY 93901 MARY HERNANDEZ 5 5 SCO CTO DEPARTMEN T VISIT MODERATE SEVERITY EMERGENCY 30445 [facility] 5 5 N DEPARTMEN COMMUNTIY T VISIT HOSPITA LOW/MODER SEVERITY [facility] - 5 5 N OUTPATIEN [facility]Y [facility] - 5 5 N OUTPATIEN COMMUNTIY T HOSPITA OFFICE 14913 [facility] GRUBBS OUTPATIEN 5 5 MEDICAL ARTIE T VISIT SERV 15 FOUNDATIO MINUTES N EMERGENCY 75892 [facility] VORKPOR 5 5 CARI CARI DEPARTMEN T VISIT MODERATE SEVERITY OFFICE 95552 [facility] GRUBBS OUTPATIEN 5 5 MEDICAL ARTIE T VISIT SERV 15 FOUNDATIO MINUTES N OFFICE 82938 GASTROENT CASE JUS OUTPATIEN 5 5 EROLOGY T VISIT AND 25 HEPATOL MINUTES OFFICE 27208 [facility] OUTPATIEN 5 5 JAM JAM T NEW 30 MINUTES [facility] 5 5 N OUTPATI COMMUNTIY T [facility] - 5 5 Y [facility] T OFFICE 69587 [facility] GRUBBS OUTPATIEN 5 5 MEDICAL ARTIE T NEW 30 SERV MINUTES FOUNDATIO N OFFICE 47975 [facility] OUTPATIEN 5 5 T VISIT 15 MINUTES EMERGENCY 31694 MARY HERNANDEZ 5 5 SCO SCO DEPARTMEN T VISIT HIGH/URGE NT SEVERITY [facility] [place] [address] 5 N OUTPATI COMMUNTIY T HOSPITA OFFICE 69200 HERIPUMA LIRIANO HAM OUTPATIEN 5 5 T NEW 45 MINUTES [facility] 5 5 Y [facility] - 5 5 Y [facility] T OFFICE 04774 [facility] OUTPATIEN 5 5 T VISIT 25 MINUTES EMERGENCY 04881 VASILIY AMANDA DEPT 5 5 DANAE DANAE VISIT HIGH SEVERITY& THREAT FUNCJ OFFICE 36741 [facility] OUTPATI[facility] 5 5 T VISIT 15 MINUTES OFFICE 74842 [facility] OUTPATIEN 5 5 T NEW 30 MINUTES [facility] - 5 5 N OUTPATIEN COMMUNTIY T HOSPITA EMERGENCY 35100 [facility] 5 5 N DEPARTMEN COMMUNTIY T VISIT HOSPITA LOW/MODER SEVERITY EMERGENCY 12486 VASILIY AMANDA [address] [facility] T VISIT MODERATE SEVERITY [facility] [place] [address] 5 N OUTPATIEN SAMUEL T HOSPITA
--- OUTSIDE RECORDS SUMMARY | 2017-05-18 07:39 | External Medical Summary Rpt | CCD ---
Author Author , IMTIAZ KITCHEN Address Unknown Phone [email or web address] Immunization Name Date Rout CVX Reac Dose Comm Prov Is Faci e tion ent ider Refu lity Give sed n Infl 09-2 150 0.5 Hist [facility] No [facility] uenz 5-20 mL oric 1 1 a 17 al Quad Info Inj rmat ion - Sour ce Unsp ecif ied Infl 11-1 Intr 999 Hist [facility] No [facility] uenz 0-20 amus oric 1 1 a 16 cula al Quad r Info rmat W/Pr ion es - Sour ce Unsp ecif ied
--- OUTSIDE RECORDS SUMMARY | 2017-05-18 07:39 | External Medical Summary Rpt | CCD ---
Author Author , IMTIAZ KITCHEN Address Unknown Phone [email or web address] Immunization Name Date Rout CVX Reac Dose [...]
--- OUTSIDE RECORDS SUMMARY | 2017-05-18 07:40 | External Medical Summary Rpt ---
Author Author JOSEDAVON Johnson, [employer] Organization [employer] Address Unknown Phone Unavailable Payers Section Payer Plan Name Group ID Member ID Coverage Coverage Start End Date Date ANA PAULA R12 400 No No CO. informati informati on in on in source source data data Results GLUCOSE POC Observa Value Referen Units Interpr Notes Date tion ce etation Range CAPILLA No No No No Jun 17 R informa informa informa informa 2012 tion in tion in tion in tion in 7:40 PM source source source source data data data data GLUCOSE 239 65 - mg/dL No No Jun 17 110 informa informa 2012 tion in tion in 7:40 PM source source data data DEVICE [id number] No No No No Jun 17 [id number] informa informa informa informa 2012 tion in tion in tion in tion in 7:40 PM source source source source data data data data OPERATO [id number] No No No No Jun 17 R informa informa informa informa 2012 tion in tion in tion in tion in 7:40 PM source source source source data data data data CKMB QUANT Observa Value Referen Units Interpr Notes Date tion ce etation Range PLASMA No No No No Jun 17 informa informa informa informa 2012 tion in tion in tion in tion in 1:04 PM source source source source data data data data CREATIN 36 55 - U/L No No Jun 17 E 170 informa informa 2012 KINASE tion in tion in 1:04 PM source source data data CKMB 0.7 0.0 - ng/mL No No Jun 17 TOTAL 3.2 informa informa 2012 tion in tion in 1:04 PM source source data data CKMB N/C 0.0 - No No CKMB Jun 17 INDEX 3.0 informa informa Index 2012 tion in tion in is not 1:04 PM source source calcula data data sabra if the CKMB total is less than 0.3 or totalCK is less than 60 CKMB Index is not calcula sabra if the CKMB total is less than 0.3 ortotal CK is less than 60 TROPONIN-I Observa Value Referen Units Interpr Notes Date tion ce etation Range PLASMA No No No No Jun 17 informa informa informa informa 2012 tion in tion in tion in tion in 1:04 PM source source source source data data data data TROPONI <0.012 0.000 - ng/mL No TROPONI Jun 17 N-I 0.034 informa N-I: 2011 tion in 0.035-0 1:04 PM source .120 data ng/ml = Minor Myocard ial Injury> 0.12 = consist ent with Myocard ial Infarct ion CKMB QUANT Observa Value Referen Units Interpr Notes Date ti ce etation Range PLASMA No No No No Jun 17 informa informa informa informa 2012 tion in tion in tion in tion in 11:05 source source source source AM data data data data CREATIN 35 55 - U/L No No Jun 14 E 170 informa informa 2012 KINASE tion in tion in 11:05 source source AM data data CKMB 0.5 0.0 - ng/mL No No Jun 14 TOTAL 3.2 informa informa 2012 tion in tion in 11:05 source source AM data data CKMB N/C 0.0 - No No CKMB Jun 17 INDEX 3.0 informa informa Index 2012 tion in tion in is not 11:05 source source calcula AM data data sabra if the CKMB total is less than 0.3 or totalCK is less than 60 CKMB Index is not calcula sabra if the CKMB total is less than 0.3 ortotal CK is less than 60 TROPONIN-I Observa Value Referen Units Interpr Notes Date tion ce etation Range PLASMA No No No No Jun 17 informa informa informa informa 2011 tion in tion in tion in tion in 11:05 source source source source AM data data data data TROPONI <0.012 0.000 - ng/mL No TROPONI Jun 17 N-I 0.034 informa N-I: 2011 tion in 0.035-0 11:05 source .120 AM data ng/ml = Minor Myocard ial Injury> 0.12 = consist ent with Myocard ial Infarct ion USN ABDOMEN COMPLETE Observa Value Referen Units Interpr Notes Date tion ce etation Range CORTNEY, No No No No Jun 17 SHERYL informa informa informa informa 2011 EXAM tion in tion in tion in tion in 10:53 DESCRIP source source source source AM TION: data data data data USN ABDOMEN COMPLET E [id number] FINAL REPORT- ELECTRO NICALLY SIGNED A CCESSIO N #[id number] 9EXAM: USN ABDOMEN COMPLET EDATE: Jun 17, 2012 10:30:0 0 AMACCES MARCE: [id number] EXAM REASON: PAIN .COMPAR [place]: NonePRO CEDURE: Real-ti me, multipl monique scales scale and color flow imaging ofthe upper abdomen was perform ed.FIND INGS:Th e pancrea s is largely obscure d and not evaluat ed on this exam withpro minence of the portal splenic conflue nce. The liver demonst ratesdi ffuse coarsen ed echotex ture and heterog eneity with surface nodular itycomp atible with cirrhos is. No discret e mass lesion is identif ied however portion s of liver obscure d by overlyi ng bowel gas. The structu re labeled as the main portal vein demonst rates undulat ing antegra de flow without reversa l of flow. There is redemon stratio n of multipl e perihep atic dilated varices No evidenc e of intrahe patic or extrahe patic biliary obstruc tion isident ified, with the common duct measuri ng 5 mm proxima lly and is obscure din its mid and distal. The gallbla dder is decompr essed without intralu maykel stone or pericho lecysti c fluid; there is mild diffuse wallthi ckening up to 4 mm. The technol ogist reports no sonogra phic Maier' ssign.T he right kidney is within normal limits for size, measuri ng 12.7 cm alongit s longitu dinal axis, with no portion obscure d and probabl e tiny 7 mmmedia l lower pole cyst. The left kidney is without hydrone phrosis andmeas ures 14 cm. The spleen is enlarge d measuri ng 15.5 cm. No signifi cantupp er abdomin al ascites identif ied. Moderat e size right-s ided pleural effusio n..IMPR ESSION: 1. Hepatic cirrhos is with stigmat a of portal venous hyperte nsion asdescr ibed above. No signifi cant upper abdomin al ascites .2. Diffuse circumf erentia l thicken ing of the gallbla dder wall without anyaddi tional finding s to suggest choleli thiasis or acute cholecy stitis. Thisis most likely related to decompr ession and/or hepatic parench ymal disease .3. Moderat e size right pleural effusio n.4. Probabl e tiny 7 mm right renal cyst with enlarge ment of the left kidneym easurin g 14 cm. No hydrone phrosis . USN ALDO DOPPLER BILAT Observa Value Referen Units Interpr Notes Date tion ce etation Range CORTNEY, No No No No Jun 17 SHERYL informmiley informa informa informa 2011 EXAM tion in tion in tion in tion in 10:41 DESCRIP source source source source AM TION: data data data data USN ALDO DOPPLER BILAT [id number] FINAL REPORT- ELECTRO NICALLY SIGNED A CCESSIO N #[id number] 2ACCESS ION: [id number] EXAM REASON: EVAL DVT IN PAT W/SUSPE CTED PE .Proced ure: Real-ti me multipl monique graysca le and color-f low imaging of therigh t and left lower extremi ties from the inguina l canal to the poplite alfossa was perform ed.Find ings: Bilater al common femoral , greater sapheno us, proxima l deepfem oral, superfi cial femoral and poplite al veins demonst rate normalc ompress ibility , augment ation and respira tory varianc e. No evidenc e fordeep venous thrombo sis.Imp ression : No deep venous thrombo sis. CHEST PA&1 LATERAL Observa Value Referen Units Interpr Notes Date ti ce etation Range CORTNEY, No No No No Jun 17 SHERYL informmiley informa informa informa 2011 PAK, tion in tion in tion in tion in 9:08 AM BONNIE source source source source B.EXAM data data data data DESCRIP TION: CHEST PA 1 LATERAL [id number] FINAL REPORT- ELECTRO NICALLY SIGNED A AGGIE N #[id number] 9EXAMIN ATION: 2-view chest radiogr aph Jun 17, 2012 8:15:00 AMACCES MARCE: [id number] PROVIDE D INDICAT ION: COUGHCO MPARISO N: PA and lateral chest radiogr aph from 06/07/20 12TECHN IQUE: Upright PA and lateral radiogr aphs of the chest were obtaine d.FINDI NGS: There has been interim progres marce of the airspac e opaciti esinvol ving the right middle and right lower lobes with obscura tion of therigh t hemidia phragm. There has also been increas e in the right sidedpl eural effusio n. The left lung is clear. The hilar, mediast inal, andcard iac contour s are unchang ed. No pneumot horaces are seen. There isredem onstrat ion of a fixatio n plate with screws in the right clavicl e withmil d-to-mo derate level spondyl osis.IM PRESSIO N:1. Increas ing conflue nt airspac e opaciti es involvi ng the right middle andrigh t lower lobes most suggest janneth of a worseni ng pneumon ia. There is anassoc iated increas ing right-s ided pleural effusio n, probabl y subpulm onic.A posttre atment two-vie w chest is recomme nded to ensure resolut ion."I, the attendi ng/[facility] renu physici an, have persona lly reviewe d, discuss ed,and supervi sed this radiolo gical examina tion with the residen t and thisrep ort reflect s my agreeme nt." BLOOD CULTURE Observa Value Referen Units Interpr Notes Date tion ce etation Range Specime No No No No Jun 17 n/Sourc informa informa informa informa 2011 e: tion in tion in tion in tion in 8:37 AM BLOOD/B source source source source LOOD data data data data Collect No No No No Jun 17 ed: informa informa informa informa 2011 tion in tion in tion in tion in 8:37 AM 2 08:37 source source source source data data data data Status: No No No No Jun 17 Final informa informa informa informa 2011 tion in tion in tion in tion in 8:37 AM Last source source source source Updated data data data data : 2 08:41 (1) LT. No No No No Jun 17 HAND informa informa informa informa 2011 tion in tion in tion in tion in 8:37 AM source source source source data data data data CULT No No No No Jun 17 RES informa informa informa informa 2011 (Final) tion in tion in tion in tion in 8:37 AM source source source source data data data data No No No No No Jun 17 Growth informa informa informa informa 2011 After 5 tion in tion in tion in tion in 8:37 AM Days source source source source data data data data PROCALCITONIN Observa Value Referen Units Interpr Notes Date tion ce etation Range PLASMA No No No No Jun 17 informa informa informa informa 2011 tion in tion in tion in tion in 8:37 AM source source source source data data data data PROCALC 0.4 No ng/mL No Jun 17 ITONIN informa informa PROCALC 2011 tion in tion in ITONIN 8:37 AM source source <=0. data data 5 ng/mL: Systemi c infecti on (sepsis ) is not likely. Local bacteri alinfec tion is possibl e.>0.5 to 2.0 ng/mL: System infecti on is possibl e, but other conditi onsare known to elevate PCT.>2. 0 ng/mL: Systemi c infecti on is likely, unless other causes areknow n.>=10 ng/mL: Systemi c inflamm atory respons e, almost exclusi vely due tosever e bacteri al sepsis or septics hock. C-REACTIVE PROTEIN Observa Value Referen Units Interpr Notes Date tion ce etation Range PLASMA No No No No Jun 17 informa informa informa informa 2012 tion in tion in tion in tion in 8:37 AM source source source source data data data data No No No No Jun 17 informa informa informa informa ADD TO 2012 tion in tion in tion in tion in BLOOD 8:37 AM source source source source IN data data data data LAB CRP 6.91 0.00 - mg/dL No No Jun 17 0.49 informa informa 2011 tion in tion in 8:37 AM source source data data NT-PROBNP Observa Value Referen Units Interpr Notes Date tion ce etation Range PLASMA No No No No Jun 17 informa informa informa informa 2011 tion in tion in tion in tion in 8:37 AM source source source source data data data data NT-PROB 479 0 - 300 pg/ml No At 300 Jun 17 [facility] informa pg/mL 2011 tion in NT-proB 8:37 AM source [facility] has data 99% negativ e predict janneth value for ruling outacut e congest janneth heart failure . In additio n, with other clinica linform ation, NT-proB [facility] can aid in the diagnos is of CHF using age related cut points: age <50 yr, 450 pg/mL; age 50-75 yr, 900 pg/mL; age >75,180 0 pg/mL. CKMB QUANT Observa Value Referen Units Interpr Notes Date tion ce etation Range PLASMA No No No No Jun 17 informa informa informa informa 2011 tion in tion in tion in tion in 8:37 AM source source source source data data data data CREATIN 47 55 - U/L No No Jun 17 E 170 informa informa 2012 KINASE tion in tion in 8:37 AM source source data data CKMB 0.7 0.0 - ng/mL No No Jun 17 TOTAL 3.2 informa informa 2012 tion in tion in 8:37 AM source source data data CKMB N/C 0.0 - No No CKMB Jun 17 INDEX 3.0 informa informa Index 2012 tion in tion in is not 8:37 AM source source calcula data data sabra if the CKMB total is less than 0.3 or totalCK is less than 60 CKMB Index is not calcula sabra if the CKMB total is less than 0.3 ortotal CK is less than 60 TROPONIN-I Observa Value Referen Units Interpr Notes Date tion ce etation Range PLASMA No No No No Jun 17 informa informa informa informa 2012 tion in tion in tion in tion in 8:37 AM source source source source data data data data TROPONI <0.012 0.000 - ng/mL No TROPONI Jun 17 N-I 0.034 informa N-I: 2011 tion in 0.035-0 8:37 AM source .120 data ng/ml = Minor Myocard ial Injury> 0.12 = consist ent with Myocard ial Infarct ion COMP METAB PANEL Observa Value Referen Units Interpr Notes Date tion ce etation Range PLASMA No No No No Jun 17 informa informa informa informa 2011 tion in tion in tion in tion in 7:25 AM source source source source data data data data SODIUM 136 137 - mmol/L No No Jun 17 145 informa informa 2011 tion in tion in 7:25 AM source source data data POTASSI 3.8 3.5 - mmol/L No No Jun 17 UM 5.1 informa informa 2011 tion in tion in 7:25 AM source source data data CHLORID 100 100 - mmol/L No No Jun 17 E 108 informa informa 2011 tion in tion in 7:25 AM source source data data CO2 27 22 - 30 mmol/L No No Jun 17 TOTAL informa informa 2011 tion in tion in 7:25 AM source source data data GLUCOSE 221 65 - mg/dL No No Jun 17 110 informa informa 2011 tion in tion in 7:25 AM source source data data BUN 12 7 - 20 mg/dL No No Jun 17 informa informa 2011 tion in tion in 7:25 AM source source data data CREATIN 0.6 0.7 - mg/dL No No Jun 17 INE 1.4 informa informa 2011 tion in tion in 7:25 AM source source data data CALCIUM 7.6 8.4 - mg/dL No No Jun 17 10.2 informa informa 2011 tion in tion in 7:25 AM source source data data ANION 10 7 - 15 mmol/L No No Jun 17 GAP informa informa 2011 tion in tion in 7:25 AM source source data data ALK 221 38 - U/L No No Jun 17 PHOS 126 informa informa 2011 tion in tion in 7:25 AM source source data data AST 52 10 - 50 U/L No No Jun 17 (SGOT) informa informa 2011 tion in tion in 7:25 AM source source data data ALT 45 20 - 70 U/L No No Jun 17 (SGPT) informa informa 2011 tion in tion in 7:25 AM source source data data TOT 1.3 0.2 - mg/dL No Jun 17 BILIRUB 1.0 informa informa 2011 IN tion in tion in 7:25 AM source source data data TOTAL 5.6 6.3 - g/dL No Jun 17 PROTEIN 8.2 informa informa 2011 tion in tion in 7:25 AM source source data data ALBUMIN 2.3 3.5 - g/dL No Jun 17 5.0 informa informa 2011 tion in tion in 7:25 AM source source data data GFR >90 No mL/min No This Jun 17 ESTIMAT informa informa eGFR is 2012 ED tion in tion in NOT 7:25 AM source source FOR data data DRUG DOSE ADJUSTM ENTStag e of Kidney Disease eGFR1 >=90 mL/min2 60-893 30-594 15-295 <=14The Estimat ed Glomeru lar Filtrat ion Ratebas ed on CKD-EPI adjuste d for age, sex,and race is validat ed for ages 18-70 years. CBC WITH DIFF Observa Value Referen Units Interpr Notes Date tion ce etation Range WHOLEBL No No No No Jun 17 D informa informa informa informa 2011 tion in tion in tion in tion in 7:25 AM source source source source data data data data WBC 10.8 4.10 - Thou/mm No Jun 17 10.80 3 informa informa 2011 tion in tion in 7:25 AM source source data data RBC 3.82 4.37 - Million No No Jun 17 5.74 /mm3 informa informa 2011 tion in tion in 7:25 AM source source data data HGB 12.0 13.7 - gm/dL No No Nov 14 17.5 informa informa 2011 tion in tion in 7:25 AM source source data data HCT 35.6 40.1 - % No No Nov 14 51.0 informa informa 2011 tion in tion in 7:25 AM source source data data MCV 93.2 79.0 - fl No No Nov 14 92.2 informa informa 2011 tion in tion in 7:25 AM source source data data MCH 31.4 25.6 - PG No No Nov 14 32.2 informa informa 2011 tion in tion in 7:25 AM source source data data MCHC 33.7 32.3 - g/dL No No Nov 14 36.5 informa informa 2011 tion in tion in 7:25 AM source source data data RDW 13.6 11.7 - % No No Nov 14 15.2 informa informa 2011 tion in tion in 7:25 AM source source data data PLT 253 140 - Thou/mm No No Nov 14 370 3 informa informa 2011 tion in tion in 7:25 AM source source data data MPV 10.9 9.4 - fl No No Nov 14 12.4 informa informa 2011 tion in tion in 7:25 AM source source data data GRANULO 74.1 34.0 - % No No Nov 14 CYTE% 69.5 informa informa 2011 tion in tion in 7:25 AM source source data data LYMPH% 13.8 20.0 - % No No Nov 14 53.0 informa informa 2011 tion in tion in 7:25 AM source source data data MONOCYT 9.1 5.0 - % No No Nov 14 E% 12.5 informa informa 2011 tion in tion in 7:25 AM source source data data EOSINOP 1.8 0.7 - % No No Nov 14 HIL% 6.0 informa informa 2011 tion in tion in 7:25 AM source source data data BASOPHI 0.5 0.0 - % No No Nov 14 L% 2.0 informa informa 2012 tion in tion in 7:25 AM source source data data IMM 0.7 0.0 - % No No Nov 14 GRAN% 0.7 informa informa 2012 tion in tion in 7:25 AM source source data data ABS 8.0 1.70 - Thou/mm No No Jun 17 NEUTROP 6.00 3 informa informa 2012 HIL # tion in tion in 7:25 AM source source data data NRBCS 0.0 No No No No Jun 17 informa informa informa informa 2012 tion in tion in tion in tion in 7:25 AM source source source source data data data data BLOOD CULTURE Observa Value Referen Units Interpr Notes Date tion ce etation Range Specime No No No No Jun 17 n/Sourc informa informa informa informa 2012 e: tion in tion in tion in tion in 7:20 AM BLOOD/B source source source source LOOD data data data data Collect No No No No Jun 17 ed: informa informa informa informa 2011 tion in tion in tion in tion in 7:20 AM 2 07:20 source source source source data data data data Status: No No No No Jun 17 Final informa informa informa informa 2012 tion in tion in tion in tion in 7:20 AM Last source source source source Updated data data data data : 2 08:41 CULT No No No No Jun 17 RES informa informa informa informa 2012 (Final) tion in tion in tion in tion in 7:20 AM source source source source data data data data No No No No No Jun 17 Growth informa informa informa informa 2012 After 5 tion in tion in tion in tion in 7:20 AM Days source source source source data data data data GLUCOSE POC Observa Value Referen Units Interpr Notes Date tion ce etation Range CAPILLA No No No No Jun 17 R informa informa informa informa 2011 tion in tion in tion in tion in 6:58 AM source source source source data data data data GLUCOSE 255 65 - mg/dL No No Jun 17 110 informa informa 2012 tion in tion in 6:58 AM source source data data DEVICE [id number] No No No No Jun 17 [id number] informa informa informa informa 2012 tion in tion in tion in tion in 6:58 AM source source source source data data data data OPERATO [id number] No No No No Jun 17 R informa informa informa informa 2011 tion in tion in tion in tion in 6:58 AM source source source source data data data data CHEST DECUBITUS RT Observa Value Referen Units Interpr Notes Date tion ce etation Range TEMO, No No No No Jun 17 MIHIR informa informa informa informa 2012 GHOLMES tion in tion in tion in tion in 2:43 AM , source source source source BONNIE data data data data B.EXAM DESCRIP TION: CHEST DECUBIT US RT [id number] FINAL REPORT- ELECTRO NICALLY SIGNED A CCESSIO N #[id number] 3Access ion: [id number] Date: Jun 17, 2012 2:17:00 PMExam: Right lateral decubit us chest radiogr aph.Exa m Reason: PLEURAL EFFUSIO N .Compar [place]: PA and lateral chest radiogr aph from 08/17/19 12 at 8:07 a.m.Yasemin hnique: A one view right lateral decubit us chest radiogr aph wasobta ined.FI NDINGS: Redemon stratio n of conflue nt airspac e opaciti es involvi ng therigh t lung with no evidenc e for layerin g effusio n. The left lung is clear.T he right clavicl e fixatio n plate is unchang ed.Impr ession: 1. Extensi ve conflue nt right-s ided air space opaciti es consist ent withpne umonia with no evidenc e for a layerin g effusio n. A compone nt oflocul ated effusio n cannot be exclude d."I, the attendi /[facility] renu physici an, have persona lly reviewe d, discuss ed,and supervi sed this radiolo gical examina tion with the residen t and thisrep ort reflect s my agreeme nt." AMMONIA Observa Value Referen Units Interpr Notes Date tion ce etation Range PLASMA No No No No Jun 07 - informa informa informa informa 2011 tion in tion in tion in tion in 8:17 PM source source source source data data data data No No No No left Nov 4 informa informa informa informa ama? 2012 tion in tion in tion in tion in 8:17 PM source source source source data data data data AMMONIA 19 9 - 33 Umol/L No No Nov 4 informa informa 2012 tion in tion in 8:17 PM source source data data LIPASE Observa Value Referen Units Interpr Notes Date tion ce etation Range PLASMA No No No No Nov 4 informa informa informa informa 2012 tion in tion in tion in tion in 8:17 PM source source source source data data data data No No No No left Nov 4 informa informa informa informa ama? 2012 tion in tion in tion in tion in 8:17 PM source source source source data data data data LIPASE 28 25 - U/L No No Nov 4 300 informa informa 2012 tion in tion in 8:17 PM source source data data AMYLASE Observa Value Referen Units Interpr Notes Date tion ce etation Range PLASMA No No No No Nov 4 informa informa informa informa 2012 tion in tion in tion in tion in 8:17 PM source source source source data data data data No No No No left Jun 4 informa informa informa informa ama? 2012 tion in tion in tion in tion in 8:17 PM source source source source data data data data AMYLASE 44 30 - U/L No No Jun 4 110 informa informa 2012 tion in tion in 8:17 PM source source data data GLUCOSE POC Observa Value Referen Units Interpr Notes Date tion ce etation Range CAPILLA No No No No Jun 4 R informa informa informa informa 2012 tion in tion in tion in tion in 6:53 PM source source source source data data data data GLUCOSE 262 65 - mg/dL No No Jun 4 110 informa informa 2012 tion in tion in 6:53 PM source source data data DEVICE [id number] No No No No Nov 4 [id number] informa informa informa informa 2012 tion in tion in tion in tion in 6:53 PM source source source source data data data data OPERATO [id number] No No No No Nov 4 R informa informa informa informa 2012 tion in tion in tion in tion in 6:53 PM source source source source data data data data UNK TOX SERUM Observa Value Referen Units Interpr Notes Date tion ce etation Range SERUM No No No No Jun 07 informa informa informa informa 2012 tion in tion in tion in tion in 6:25 PM source source source source data data data data No No No No Jun 07 informa informa informa informa BLOOD 2012 tion in tion in tion in tion in IN 6:25 PM source source source source LAB data data data data METHANO NEGATIV NEGATIV No No No Jun 07 L QUAL E E informa informa informa 2011 tion in tion in tion in 6:25 PM source source source data data data ACETONE NEGATIV NEGATIV No No No Jun 07 QUAL E E informa informa informa 2011 tion in tion in tion in 6:25 PM source source source data data data ETHANOL NEGATIV NEGATIV No No No Jun 07 QUAL E E informa informa informa 2011 tion in tion in tion in 6:25 PM source source source data data data ISOPROP NEGATIV NEGATIV No No No Jun 07 NL QL E E informa informa informa 2011 tion in tion in tion in 6:25 PM source source source data data data TCA'S NEGATIV NEGATIV No No No Jun 07 E E informa informa informa 2011 tion in tion in tion in 6:25 PM source source source data data data BENZODI NEGATIV NEGATIV No No No Jun 07 AZPNE,S E E informa informa informa 2012 R tion in tion in tion in 6:25 PM source source source data data data BARBITU NEGATIV NEGATIV No No No Jun 07 RATE,SR E E informa informa informa 2011 tion in tion in tion in 6:25 PM source source source data data data ACETAMI <0.7 10.0 - mcg/mL No No Jun 07 NOPHEN 30.0 informa informa 2012 QNT tion in tion in 6:25 PM source source data data SALICYL <0.3 2.0 - mg/dL No No Jun 07 ATE QNT 30.0 informa informa 2012 tion in tion in 6:25 PM source source data data COLLECT [id number] No No No No Jun 07 ED BY informa informa informa informa 2012 tion in tion in tion in tion in 6:25 PM source source source source data data data data TECH ID HIRAM No No No * * * Jun 07 AMP informa informa informa UNKNOWN 2011 tion in tion in tion in DRUG 6:25 PM source source source SCREEN data data data SERUM TESTING * * SCREEN+ indicat es Presump tive Positiv e *Presum ptive Positiv e results are not confirm ed by GCMS.Th e submitt ed specime n was tested for the presenc e of the followi ngsubst ances at or above the indicat ed detecti on limits. Barbitu rates: >500 ng/ml Benzodi azepine s: >100 ng/ml Tricycl icAntid epressa nts: >300 ng/mlMe thanol, Ethanol , Acetone , and Isoprop anol: >10 mg/dlRe sults for Clinica l use only. COMP METAB PANEL Observa Value Referen Units Interpr Notes Date tion ce etation Range PLASMA No No No No Jun 07 informa informa informa informa 2011 tion in tion in tion in tion in 6:25 PM source source source source data data data data SODIUM 136 137 - mmol/L No No Jun 07 145 informa informa 2011 tion in tion in 6:25 PM source source data data POTASSI 4.0 3.5 - mmol/L No No Jun 07 UM 5.1 informa informa 2011 tion in tion in 6:25 PM source source data data CHLORID 101 100 - mmol/L No No Jun 4 E 108 informa informa 2011 tion in tion in 6:25 PM source source data data CO2 26 22 - 30 mmol/L No No Jun 4 TOTAL informa informa 2011 tion in tion in 6:25 PM source source data data GLUCOSE 229 65 - mg/dL No No Jun 4 110 informa informa 2011 tion in tion in 6:25 PM source source data data BUN 14 7 - 20 mg/dL No No Jun 4 informa informa 2011 tion in tion in 6:25 PM source source data data CREATIN 0.7 0.7 - mg/dL No No Jun 07 INE 1.4 informa informa 2011 tion in tion in 6:25 PM source source data data CALCIUM 8.2 8.4 - mg/dL No No Jun 07 10.2 informa informa 2011 tion in tion in 6:25 PM source source data data ANION 10 7 - 15 mmol/L No No Jun 07 GAP informa informa 2011 tion in tion in 6:25 PM source source data data ALK 104 38 - U/L No Jun 07 PHOS 126 informa informa 2011 tion in tion in 6:25 PM source source data data AST 27 10 - 50 U/L No No Jun 07 (SGOT) informa informa 2011 tion in tion in 6:25 PM source source data data ALT 40 20 - 70 U/L No No Jun 07 (SGPT) informa informa 2011 tion in tion in 6:25 PM source source data data TOT 2.4 0.2 - mg/dL No Jun 07 BILIRUB 1.0 informa informa 2011 IN tion in tion in 6:25 PM source source data data TOTAL 6.5 6.3 - g/dL No Jun 07 PROTEIN 8.2 informa informa 2011 tion in tion in 6:25 PM source source data data ALBUMIN 3.0 3.5 - g/dL No Jun 07 5.0 informa informa 2011 tion in tion in 6:25 PM source source data data GFR >90 No mL/min No This Jun 07 ESTIMAT informa informa eGFR is 2012 ED tion in tion in NOT 6:25 PM source source FOR data data DRUG DOSE ADJUSTM ENTStag e of Kidney Disease eGFR1 >=90 mL/min2 60-893 30-594 15-295 <=14The Estimat ed Glomeru lar Filtrat ion Ratebas ed on CKD-EPI adjuste d for age, sex,and race is validat ed for ages 18-70 years. CBC WITH DIFF Observa Value Referen Units Interpr Notes Date tion ce etation Range WHOLEBL No No No No Jun 4 D informa informa informa informa 2011 tion in tion in tion in tion in 6:25 PM source source source source data data data data WBC 11.1 4.10 - Thou/mm No No Nov 4 10.80 3 informa informa 2012 tion in tion in 6:25 PM source source data data RBC 4.24 4.37 - Million No No Nov 4 5.74 /mm3 informa informa 2012 tion in tion in 6:25 PM source source data data HGB 13.2 13.7 - gm/dL No No Nov 4 17.5 informa informa 2012 tion in tion in 6:25 PM source source data data HCT 39.5 40.1 - % No No Nov 4 51.0 informa informa 2012 tion in tion in 6:25 PM source source data data MCV 93.2 79.0 - fl No No Nov 4 92.2 informa informa 2011 tion in tion in 6:25 PM source source data data MCH 31.1 25.6 - PG No No Nov 4 32.2 informa informa 2012 tion in tion in 6:25 PM source source data data MCHC 33.4 32.3 - g/dL No No Nov 4 36.5 informa informa 2012 tion in tion in 6:25 PM source source data data RDW 13.2 11.7 - % No No Nov 4 15.2 informa informa 2012 tion in tion in 6:25 PM source source data data PLT 163 140 - Thou/mm No No Nov 4 370 3 informa informa 2011 tion in tion in 6:25 PM source source data data MPV 10.6 8.7 - fl No No Nov 4 12.0 informa informa 2012 tion in tion in 6:25 PM source source data data GRANULO 70.5 34.0 - % No No Nov 4 CYTE% 69.5 informa informa 2012 tion in tion in 6:25 PM source source data data LYMPH% 12.0 20.0 - % No No Nov 4 53.0 informa informa 2012 tion in tion in 6:25 PM source source data data MONOCYT 15.0 5.0 - % No No Nov 4 E% 12.5 informa informa 2012 tion in tion in 6:25 PM source source data data EOSINOP 1.8 0.7 - % No No Nov 4 HIL% 6.0 informa informa 2012 tion in tion in 6:25 PM source source data data BASOPHI 0.3 0.0 - % No No Jun 4 L% 2.0 informa informa 2011 tion in tion in 6:25 PM source source data data IMM 0.4 0.0 - % No No Jun 4 GRAN% 0.7 informa informa 2012 tion in tion in 6:25 PM source source data data ABS 7.8 1.70 - Thou/mm No No Jun 4 NEUTROP 6.00 3 informa informa 2012 HIL # tion in tion in 6:25 PM source source data data NRBCS 0.0 No No No No Jun 4 informa informa informa informa 2012 tion in tion in tion in tion in 6:25 PM source source source source data data data data CHEST PA&1 LATERAL Observa Value Referen Units Interpr Notes Date tion ce etation Range BOYER, No No No No Jun 4 NATALIA informa informa informa informa 2012 LEXAM tion in tion in tion in tion in 8:08 AM DESCRIP source source source source TION: data data data data CHEST PA 1 LATERAL [id number] FINAL REPORT- ELECTRO NICALLY SIGNED A CCESSIO N #[id number] 8EXAM: CHEST PA AND LATERAL DATE OF EXAM: Jun 07, 2012 8:02:00 PMEXAM REASON: FALLACC ESSION: [id number] FINDING S: Compari son is made to prior study perform ed on 010.Inc rease opacity is seen of the right lung base as well as bluntin g of thecost ophreni c angle. There is slight bluntin g of the left costoph renican gle. No focal areas of consoli dation are seen on the left. The cardiac and mediast inal contour s are normal. A fixatio n plate and screws is seenove r a well healed right clavicl e fractur e. No pneumot horax is identif ied.No new displac ed fractur e is identif ied. Multile miguel degener ative changes through out the thoraci c spine are again seen. There is chronic -appear ingwedg e-shape d deformi ty of the mid to lower thoraci c vertebr al body.IM PRESSIO N:1. Right basilar airspac e opacity may represe nt atelect asis however underly ing pneumon ia cannot be exclude d. There is an associa sabra rightpl eural effusio n. A trace left pleural effusio n is present . HCV VIRAL LOAD Observa Value Referen Units Interpr Notes Date tion ce etation Range PLASMA No No No No Jul 16 informa informa informa informa 2010 tion in tion in tion in tion in 11:52 source source source source AM data data data data HCV RNA DETECTE NOT No No A Jul 16 D DETECTE informa informa result 2010 D tion in tion in of Not 11:52 source source Detecte AM data data d indicat es that the viral load was below theLimi t of Detecti on of 43 copies/ mL for this assay and should not beinter preted as a total lack of HCV RNA. The range that can be accurat elyquan titated using this assay is 43 - 69,000, 000 copies/ mL. If HCV RNA isdetec sabra but falls above or below this linear range the test will beresul sabra as Detecte d, <43 copies/ mL or Detecte d, >69,000 ,000cop ies/mL. ATTE NTION *If a Hepatit is C RIBA test has been ordered , please be advised [facility] this assay due to lack ofFDA approve d reagent from the test reagent 's sole [facility]. Questre commend s the use of the Hepatit is C Virus PCR Quantit ative test as asubsti tute, which is provide d here. If additio nal clarifi cation isrequi red, please contact the [facility] ology Laborat ory at [phone]. HCV RNA 1,370,0 No IU/mL No No Jul 16 QUANT 00 informa informa informa 2010 tion in tion in tion in 11:52 source source source AM data data data LOG10 6.14 No No No NOTE: Jul 16 RESULT informa informa informa The 2010 tion in tion in tion in Clinica 11:52 source source source l AM data data data Laborat ory [facility], [employer]), now require s that viral load (quanti tative) results be reporte d as both integer s and log10 transfo rmed units. The latter, log10, is require d since viral replica tion is logarit hmic rather thanari thmetic and log10 transfo rmed data better reflect biologi callyre levant changes in viral load. CBC WITH DIFF Observa Value Referen Units Interpr Notes Date tion ce etation Range WHOLEBL No No No No Jul 16 D informa informa informa informa 2011 tion in tion in tion in tion in 11:52 source source source source AM data data data data WBC 5.0 4.10 - Thou/mm No No Jul 16 10.80 3 informa informa 2010 tion in tion in 11:52 source source AM data data RBC 4.74 4.37 - Million No No Jul 16 5.74 /mm3 informa informa 2010 tion in tion in 11:52 source source AM data data HGB 15.4 13.7 - gm/dL No No Jul 16 17.5 informa informa 2010 tion in tion in 11:52 source source AM data data HCT 44.6 40.1 - % No No Jul 16 51.0 informa informa 2010 tion in tion in 11:52 source source AM data data MCV 94.1 79.0 - fl No No Jul 16 92.2 informa informa 2011 tion in tion in 11:52 source source AM data data MCH 32.5 25.6 - PG No No Jul 16 32.2 informa informa 2010 tion in tion in 11:52 source source AM data data MCHC 34.5 32.3 - g/dL No No Jul 16 36.5 informa informa 2010 tion in tion in 11:52 source source AM data data RDW 13.0 11.7 - % No No Jul 16 15.2 informa informa 2011 tion in tion in 11:52 source source AM data data PLT 86 140 - Thou/mm No No Jul 16 370 3 informa informa 2010 tion in tion in 11:52 source source AM data data MPV 11.9 8.7 - fl No No Jul 16 12.0 informa informa 2011 tion in tion in 11:52 source source AM data data GRANULO 59.0 34.0 - % No No Jul 16 CYTE% 69.5 informa informa 2011 tion in tion in 11:52 source source AM data data LYMPH% 29.2 20.0 - % No No Jul 16 53.0 informa informa 2011 tion in tion in 11:52 source source AM data data MONOCYT 7.2 5.0 - % No No Jul 16 E% 12.5 informa informa 2011 tion in tion in 11:52 source source AM data data EOSINOP 3.6 0.7 - % No No Jul 16 HIL% 6.0 informa informa 2011 tion in tion in 11:52 source source AM data data BASOPHI 0.8 0.0 - % No No Jul 16 L% 2.0 informa informa 2011 tion in tion in 11:52 source source AM data data IMM 0.2 0.0 - % No No Jul 16 GRAN% 0.7 informa informa 2011 tion in tion in 11:52 source source AM data data ABS 3.0 1.70 - Thou/mm No No Jul 16 NEUTROP 6.00 3 informa informa 2010 HIL # tion in tion in 11:52 source source AM data data PLT EST DECREAS ADEQUAT No No No Jul 16 ED E informa informa informa 2011 tion in tion in tion in 11:52 source source source AM data data data NRBCS 0.0 No No No No Jul 16 informa informa informa informa 2011 tion in tion in tion in tion in 11:52 source source source source AM data data data data COMP METAB PANEL Observa Value Referen Units Interpr Notes Date tion ce etation Range PLASMA No No No No Jul 16 informa informa informa informa 2011 tion in tion in tion in tion in 11:52 source source source source AM data data data data SODIUM 140 137 - mmol/L No No Jul 16 145 informa informa 2010 tion in tion in 11:52 source source AM data data POTASSI 4.1 3.5 - mmol/L No No Jul 16 UM 5.1 informa informa 2011 tion in tion in 11:52 source source AM data data CHLORID 110 100 - mmol/L No No Jul 16 E 108 informa informa 2011 tion in tion in 11:52 source source AM data data CO2 24 22 - 30 mmol/L No No Jul 16 TOTAL informa informa 2011 tion in tion in 11:52 source source AM data data GLUCOSE 215 65 - mg/dL No Jul 16 110 informa informa 2011 tion in tion in 11:52 source source AM data data BUN 17 7 - 20 mg/dL No Jul 16 informa informa 2011 tion in tion in 11:52 source source AM data data CREATIN 0.8 0.7 - mg/dL No Jul 16 INE 1.4 informa informa 2011 tion in tion in 11:52 source source AM data data CALCIUM 8.7 8.4 - mg/dL No Jul 16 10.2 informa informa 2010 tion in tion in 11:52 source source AM data data ANION 5 7 - 15 mmol/L No No Jul 16 GAP informa informa 2010 tion in tion in 11:52 source source AM data data ALK 90 38 - U/L No Jul 16 PHOS 126 informa informa 2010 tion in tion in 11:52 source source AM data data AST 47 10 - 50 U/L No No Jul 16 (SGOT) informa informa 2010 tion in tion in 11:52 source source AM data data ALT 69 20 - 70 U/L No No Jul 16 (SGPT) informa informa 2010 tion in tion in 11:52 source source AM data data TOT 1.1 0.2 - mg/dL No Jul 16 BILIRUB 1.0 informa informa 2010 IN tion in tion in 11:52 source source AM data data TOTAL 6.4 6.3 - g/dL No Jul 16 PROTEIN 8.2 informa informa 2010 tion in tion in 11:52 source source AM data data ALBUMIN 3.1 3.5 - g/dL No Jul 16 5.0 informa informa 2010 tion in tion in 11:52 source source AM data data GFR >90 No mL/min No This Jul 16 ESTIMAT informa informa eGFR is 2011 ED tion in tion in NOT 11:52 source source FOR AM data data DRUG DOSE ADJUSTM ENTStag e of Kidney Disease eGFR1 >=90 mL/min2 60-893 30-594 15-295 <=14The Estimat ed Glomeru lar Filtrat ion Ratebas ed on CKD-EPI adjuste d for age, sex,and race is validat ed for ages 18-70 years.
--- OUTSIDE RECORDS SUMMARY | 2017-05-18 07:40 | External Medical Summary Rpt ---
[...] 7:40 PM source source data data DEVICE [id number] No No No No Jun 17 [id number] informa informa informa informa 2012 tion in tion in tion in tion in 7:40 PM source source source source data data data data OPERATO [id number] No No No No Jun 17 R [...] data data data USN ABDOMEN COMPLET E [id number] FINAL REPORT- ELECTRO NICALLY SIGNED A CCESSIO N #[id number] 9EXAM: USN ABDOMEN COMPLET EDATE: Jun 17, 2012 10:30:0 0 AMACCES MARCE: [id number] EXAM REASON: PAIN .COMPAR [place]: NonePRO CEDURE: [...] data data data USN ALDO DOPPLER BILAT [id number] FINAL REPORT- ELECTRO NICALLY SIGNED A CCESSIO N #[id number] 2ACCESS ION: [id number] EXAM REASON: EVAL DVT IN PAT W/SUSPE [...] data DESCRIP TION: CHEST PA 1 LATERAL [id number] FINAL REPORT- ELECTRO NICALLY SIGNED A AGGIE N #[id number] 9EXAMIN ATION: 2-view chest radiogr aph Jun 17, 2012 8:15:00 AMACCES MARCE: [id number] PROVIDE D INDICAT ION: COUGHCO MPARISO N: [...] nded to ensure resolut ion."I, the attendi ng/[facility] re[facility] physici an, have persona lly reviewe [...] 300 pg/ml No At 300 Jun 17 SHREDDER OPERATOR informa pg/mL 2011 tion in NT-proB 8:37 AM source SHREDDER OPERATOR has data 99% negativ e predict janneth value for ruling outacut e congest janneth heart failure . In additio n, with other clinica linform ation, NT-proB SHREDDER OPERATOR can aid in the diagnos is of [...] 6:58 AM source source data data DEVICE [id number] No No No No Jun 17 [id number] informa informa informa informa 2012 tion in tion in tion in tion in 6:58 AM source source source source data data data data OPERATO [id number] No No No No Jun 17 R [...] B.EXAM DESCRIP TION: CHEST DECUBIT US RT [id number] FINAL REPORT- ELECTRO NICALLY SIGNED A CCESSIO N #[id number] 3Access ion: [id number] Date: Jun 17, 2012 2:17:00 PMExam: Right [...] n cannot be exclude d."I, the attendi /[facility] renu physici an, have persona lly reviewe [...] 6:53 PM source source data data DEVICE [id number] No No No No Nov 4 [id number] informa informa informa informa 2012 tion in tion in tion in tion in 6:53 PM source source source source data data data data OPERATO [id number] No No No No Nov 4 R [...] 6:25 PM source source data data COLLECT [id number] No No No No Jun 07 ED [...] data data data CHEST PA 1 LATERAL [id number] FINAL REPORT- ELECTRO NICALLY SIGNED A CCESSIO N #[id number] 8EXAM: CHEST PA AND LATERAL DATE OF EXAM: Jun 07, 2012 8:02:00 PMEXAM REASON: FALLACC ESSION: [id number] FINDING S: Compari son is made to [...] has been ordered , [facility] in[facility] this assay due to lack ofFDA approve d reagent from the test reagent 's sole [facility]. Questre commend s the use of the Hepatit is C Virus PCR Quantit ative test as asubsti tute, which is provide d here. If additio nal clarifi cation isrequi red, please contact the [facility] ology Laborat ory at [phone] 9. HCV RNA 1,370,0 No IU/mL No No [...]
== END 2017-05-18 07:36 | disposition home or self-care (01) ==
LOC: ER 06:06
PROC: 0HQ1XZZ Repair Face Skin, External Approach (ICD-10-PCS; principal; 2017-05-18)
DX: S01.81XA Laceration without foreign body of other part of head, initial encounter (principal); W18.39XA Other fall on same level, initial encounter; Y92.013 Bedroom of single-family (private) house as the place of occurrence of the external cause; R42 Dizziness and giddiness; E11.9 Type 2 diabetes mellitus without complications; Z79.4 Long term (current) use of insulin; F17.210 Nicotine dependence, cigarettes, uncomplicated

== ENCOUNTER → 2017-06-27 | Emergency (ER) | payer MEDICAID ==
[~2017-06-27] VITALS: Ht 182.9 cm; Wt 96.2 kg
[~2017-06-27] MED LIST changes: +ASPIR-LOW81 MG PO; +BUPROPION HYDR150 M1 PO; +CLINDAMYCIN HC300 MG PO; +FUROSEMIDE40 MG PO; +GABAPENTIN800 MG PO
--- OUTSIDE RECORDS SUMMARY | 2017-06-27 23:04 | External Medical Summary Rpt | CCD ---
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 46268 DIAB W/O 04-03-2015 SH[facility] FAJARDO COMP TYPE II/UNS NOT STATED UNCNTRL 33651 BORDERLINE 04-03-2015 SHAGUFTA FAJARDO GLAUC OPEN ANGLE BL FINDINGS LOW RSK 96450 DISPLCMT 03-30-2015 [facility] [place] LUMBAR RADIOLOGY 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 2113 BENIGN 03-29-2015 [facility] NE[facility] OF [facility] COLON 98939 GENERALIZED 03-28-2015 [facility] DISORDER 4019 UNSPECIFIED 03-28-2015 [facility] HYPERTENSIO N 68120 PAIN IN 03-10-2015 [facility] JOINT, SHOULDER REGION 7242 LUMBAGO 03-10-2015 [facility] 1123 CANDIDIASIS 01-31-2015 [facility] OF SKIN COMMUNTIY AND NAILS HOSPITA 6929 CONTACT 01-31-2015 [facility] DERMATITIS& SCO OTHER ECZEMA DUE UNSPEC CAUSE 85774 ABDOMINAL 01-31-2015 [facility] PAIN, SCO EPIGASTRIC 7213 LUMBOSACRAL 01-25-2015 [facility] NOGUERA SPONDYLOSIS WITHOUT MYELOPATHY 7244 THORACIC/BRIAN 01-25-2015 [facility] NOGUERA MBOSACRAL NEURITIS/RA DICULITIS UNSPEC V5869 LONG-TERM 01-25-2015 HERI NOGUERA (CURRENT) USE OF OTHER MEDICATIONS 4561 ESOPHAGEAL 01-24-2015 [place] [facility] SERV WITHOUT FOUNDATION MENTION OF BLEEDING 4568 VARICES OF 01-24-2015 [facility] 91637 DUOD ULCR 01-24-2015 [facility] ACUT/CHRON W/O HEMORR PERF/OBST 79786 CHRONIC 01-10-2015 [place] HEPATITIS C [facility] WITHOUT MENTION HEPATIC COMA 7892 SPLENOMEGAL 01-10-[address] [facility] 86444 ABDOMINAL 12-29-2014 [facility] PAIN OTHER SPECIFIED SITE 20241 ABDOMINAL 12-26-2014 AMANDA DANAE PAIN RIGHT LOWER QUADRANT 40925 ABD/PELVIC 12-26-2014 [facility] [place] RADIOLOGY MASS/LUMP OTH SPEC SITE 35807 DIAB W/O 12-13-2014 [facility] MENTION COMP TYPE II/UNS TYPE UNCNTRL 4011 ESSENTIAL 12-06-2014 [facility] HYPERTENSIO N, BENIGN V1582 PERS HX 11-14-2014 [facility] TOBACCO USE COMMUNTIY PRESENTING HOSPITA [facility] V5867 LONG-TERM 11-14-2014 [facility] USE OF COMMUNTIY INSULIN HOSPITA V681 ISSUE OF 11-14-2014 [facility] REPEAT COMMUNTIY PRESCRIPTIO HOSPITA NS S01.81XA LACERATION W/O FOREIGN BODY OF OTH PART OF HEAD, INIT ENCNTR Allergies, Adverse Reactions, Alerts Clinical Alert Notifications Alert Asthma: absence of controller with h/o SA beta agonist Diabetes: no eye exam in the last 365 days Diabetes: no lipid panel in the last 365 days Diabetes: no urine protein screening in the last 365 days Medications Na ND Rx Da Fi Fi Am Da Di Ph RX Ph St me C No te ll ll ou ys ag ar # ys at rm s nt no ma ic us Or Da si cy ia de te s n re d GA 69 10 11 90 30 00 GE Ac BA 09 -2 -2 .0 00 OR ti PE 70 7- 4- 00 04 GE ve NT 81 20 20 02 TO IN 11 17 17 36 WN 2 15 80 AP 0 OT MG HE CA TA RY BL ET NO 00 10 11 20 30 00 GE Ac VO 16 -2 -2 .0 00 OR ti LI 91 6- 4- 00 06 GE ve N 83 20 20 05 TO 70 71 17 17 33 WN -3 1 57 0 AP 10 OT 0 HE UN CA IT RY /M L AL OX 68 10 11 90 30 00 GE Ac YC 38 -2 -2 .0 00 OR ti OD 20 8- 4- 00 02 GE ve ON 79 20 20 00 TO E 40 17 17 99 WN HC 1 62 L AP 10 OT HE MG CA RY TA BL ET DE 00 10 11 90 30 00 GE Ac XT 55 -3 -2 .0 00 OR ti RO 50 0- 4- 00 02 GE ve AM 97 20 20 00 TO P- 20 17 17 99 WN AM 2 80 PH AP ET OT AM HE IN CA RY 10 MG TA B OM 00 10 11 60 30 00 GE Ac EP 90 -3 -2 .0 00 OR ti RA 45 0- 4- 00 06 GE ve ZO 83 20 20 05 TO LE 44 17 [address] AP OT 20 HE CA MG RY TA BL ET TR 50 10 11 30 30 00 GE Ac AZ 11 -2 -2 .0 00 OR ti OD 10 6- 4- 00 06 GE ve ON 43 20 20 05 TO E 30 17 17 25 WN 50 3 57 AP MG OT HE TA CA BL RY ET FU 00 10 11 60 30 00 GE Ac RO 37 -2 -2 .0 00 OR ti SE 80 6- 4- 00 06 GE ve LA 20 20 20 05 TO DE 81 17 17 25 WN 0 56 20 AP OT MG HE CA TA RY BL ET CY 69 10 11 30 10 00 GE Ac CL 09 -2 -2 .0 00 OR ti OB 70 6- 4- 00 06 GE ve EN 84 20 20 05 TO ZA 61 17 17 25 WN NJ 5 52 IN AP E OT 10 HE CA MG RY TA BL ET 00 10 11 30 30 00 GE Ac PI 90 -2 -2 .0 00 OR ti R- 47 6- 4- 00 06 GE ve LO 70 20 20 05 TO W 48 17 17 25 WN EC 0 46 AP 81 OT HE MG CA RY TA BL ET VE 00 10 11 18 16 00 GE Ac NT 17 -2 -2 .0 00 OR ti OL 30 6- 4- 00 06 GE ve IN 68 20 20 05 TO 22 17 17 25 WN HF 0 44 A AP 90 OT HE MC CA G RY IN SALINAS LE R EA 91 10 11 10 30 00 GE Ac SY 23 -2 -2 0. 00 OR ti 70 6- 4- 00 06 GE ve CO 00 20 20 0 05 TO MF 17 17 17 25 WN OR 2 41 T AP SY OT R HE 1 CA ML RY 30 GX 1/ 2" CE 00 10 11 40 10 00 GE Ac PH 09 -1 -1 .0 00 OR ti AL 33 9- 7- 00 06 GE ve EX 14 20 20 05 TO IN 70 17 17 28 WN 5 70 50 AP 0 OT MG HE CA CA RY PS UL E ON 53 10 11 10 33 00 GE Ac ET 88 -2 -1 0. 00 OR ti OU 50 5- 7- 00 06 GE ve CH 24 20 20 0 05 TO 45 17 17 32 WN UL 0 20 TR AP A OT TE HE ST CA RY ST RI PS ON 53 10 11 10 33 00 GE Ac ET 88 -2 -1 0. 00 OR ti OU 50 5- 7- 00 06 GE ve CH 14 20 20 0 05 TO 30 17 17 32 WN DE 1 21 LI AP CA OT HE 33 CA G RY LA NC ET S GA 65 09 10 90 30 00 CV Ac BA 86 -2 -2 .0 00 S ti PE 20 9- 7- 00 01 PH ve NT 52 20 20 38 AR IN 40 17 17 98 MA 5 14 CY 80 0 #0 MG 23 32 TA BL ET OX 10 09 10 90 30 00 CV Ac YC 70 -2 -2 .0 00 S ti OD 20 9- 7- 00 01 PH ve ON 05 20 20 40 AR E 60 17 17 34 MA HC 1 13 CY L 10 #0 23 MG 32 TA BL ET OM 00 09 10 30 30 00 CV Ac EP 78 -2 -2 .0 00 S ti RA 12 8- 7- 00 01 PH ve ZO 23 20 20 40 AR LE 43 17 17 27 MA [address] #0 40 23 32 MG CA PS UL E BD 08 09 10 10 30 00 CV Ac 29 -2 -2 0. 00 S ti IN 03 8- 7- 00 01 PH ve CONTEH 28 20 20 0 40 AR LI 41 17 17 28 MA N 1 70 CY SY R #0 1 23 ML 32 12 .7 MM X3 0G VE 00 09 10 18 30 00 CV Ac NT 17 -2 -2 .0 00 S ti OL 30 8- 7- 00 01 PH ve IN 68 20 20 40 AR 22 17 17 27 MA HF 0 34 CY A 90 #0 23 MC 32 G IN SALINAS LE R TR 50 09 10 30 30 00 CV Ac AZ 11 -2 -2 .0 00 S ti OD 10 2- 0- 00 01 PH ve ON 43 20 20 38 AR E 30 17 17 76 MA 50 1 19 CY MG #0 23 TA 32 BL ET BU 10 09 10 30 30 00 CV Ac NJ 37 -2 -2 .0 00 S ti OP 00 2- 0- 00 01 PH ve IO 10 20 20 31 AR N 15 17 17 81 MA HC 0 01 CY L XL #0 23 15 32 0 MG TA BL ET 00 09 10 30 30 00 CV Ac PI 53 -2 -2 .0 00 S ti RI 61 3- 0- 00 01 PH ve N 00 20 20 39 AR EC 44 17 17 04 MA 1 40 CY 81 #0 MG 23 32 TA BL ET ON 53 09 10 10 30 00 CV Ac ET 88 -2 -2 0. 00 S ti OU 50 8- 0- 00 01 PH ve CH 13 20 20 0 39 AR 61 17 17 07 MA DE 0 39 CY LI CA #0 23 33 32 G LA NC ET S RA 64 09 10 60 30 00 [...] 00 9- 3- 00 01 PH ve NJ 51 20 20 34 AR IL 70 [...] 44 9- 3- 00 01 PH ve LA 29 20 20 39 AR DE 73 17 17 85 MA 1 82 CY 20 #0 MG 23 32 TA BL ET CY 00 09 10 30 10 00 CV Ac CL 37 -1 -0 .0 00 S ti OB 80 2- 6- 00 01 PH ve EN 75 20 20 39 AR ZA 11 17 17 53 MA NJ 0 81 CY IN E #0 10 [...] 80 5- 9- 00 01 PH ve LA 20 20 20 39 AR DE 81 [...] 23 32 TA BL ET ON 53 08 09 10 28 00 CV Ac ET 88 -2 -2 0. 00 S ti OU 50 9- 2- 00 01 PH ve CH 24 20 20 0 38 AR 51 17 17 85 MA UL 0 61 CY TR A #[address] RI PS GA 65 08 09 90 30 00 [...] #0 23 MG 32 TA BL ET TR 50 08 09 30 30 00 CV Ac AZ 11 -2 -2 .0 00 S ti OD 10 5- 2- 00 01 PH ve ON 43 20 20 38 AR E 30 17 17 76 MA 50 1 19 CY MG #0 23 TA 32 BL ET LE 65 08 09 6. [...] SO BRIAN TI ON LI 68 08 09 30 30 00 CV Ac SI 18 -2 -1 .0 00 S ti NO 00 3- 5- 00 01 PH ve NJ 51 20 20 34 AR IL 70 17 17 98 MA 3 82 CY 40 #0 MG 23 32 TA BL ET BU 10 08 09 30 30 00 CV Ac NJ 37 -2 -1 .0 00 S ti [...] IT /M L AL BD 08 08 09 10 30 00 CV Ac 29 -2 -1 0. 00 S ti IN 03 3- 5- 00 01 PH ve CONTEH 28 20 20 0 32 AR LI 46 17 17 27 MA N 8 44 CY SY R #0 0. 23 5 32 ML 8M MX 31 G LI 68 05 30 30 00 CV Ac SI 18 -2 -2 .0 00 S ti NO 00 9- 3- 00 01 PH ve NJ 51 20 20 34 AR IL 70 17 17 98 MA 3 82 CY 40 #0 MG 23 32 TA BL ET BU 10 05 30 30 00 CV Ac NJ 37 -2 -2 .0 00 S ti OP 00 6- 3- 00 01 PH ve IO 10 20 20 31 AR N 15 17 17 81 MA HC 0 01 CY L XL #0 23 15 32 0 MG TA BL ET NO 00 05 30 30 00 CV Ac RT 09 -2 -1 .0 00 S ti RI 30 4- 6- 00 01 PH ve PT 81 20 20 35 AR YL 10 17 17 02 MA IN 1 23 CY E HC #0 L 23 25 32 MG CA P NO 00 05 30 30 00 CV Ac VO 16 -2 -1 .0 00 S ti LI 91 1- 6- 00 01 PH ve N 83 20 20 28 AR 70 71 17 17 85 MA -3 1 21 CY 0 10 #0 0 23 UN 32 IT /M L AL AC 65 05 06 10 30 00 CV Ac CU 70 -2 -1 0. 00 S ti -C 20 1- 6- 00 01 PH ve HE 40 20 20 0 28 AR K 81 17 17 85 MA AV 0 22 CY IV A #0 PL [address] RP AC 65 05 06 1. 30 00 [...] #0 23 MG 32 TA BL ET LA 00 04 05 30 30 00 CV Ac RT 09 -2 -2 .0 00 S ti AZ 37 9- 6- 00 01 PH ve AP 20 20 20 32 AR IN 65 17 17 89 MA E 6 41 CY 15 #0 MG 23 32 TA BL ET BU 10 04 05 30 30 00 CV Ac NJ 37 -2 -2 .0 00 S ti [...] DR 23 32 30 MG CA P GA 65 04 05 90 30 00 CV Ac BA 86 -1 -0 .0 00 S ti PE 20 0- 5- 00 01 PH ve NT 52 20 20 33 AR IN 40 17 17 04 MA 5 41 CY 80 0 #0 MG 23 32 TA BL ET LA 00 04 05 30 30 00 CV Ac RT 09 -0 -0 .0 00 S ti AZ 37 6- 5- 00 01 PH ve AP 20 20 20 32 AR IN 65 17 17 89 MA E 6 41 CY 15 #0 MG 23 32 TA BL ET LA 59 04 05 60 21 00 CV Ac MO 74 -0 -0 .0 00 S ti TR 60 6- 5- 00 01 PH ve IG 24 20 20 32 AR IN 50 17 17 89 MA E 1 40 CY 25 #0 MG 23 32 TA BL ET NJ 68 03 04 30 30 00 CV [...] 00 4- 1- 00 01 PH ve NJ 51 20 20 28 AR IL 70 [...] 03 04 30 30 00 CV Ac NJ 37 -1 -0 .0 00 S ti [...] 23 MP 32 DS TA BL ET DU 66 02 03 30 30 00 CV Ac LO 99 -1 -1 .0 00 S ti XE 30 0- 0- 00 01 PH ve TI 66 20 20 30 AR NE 33 17 17 17 MA 0 17 CY HC L #0 DR 23 32 30 MG CA P BD 08 02 03 10 30 00 CV Ac 29 -1 -1 0. 00 S ti SY 03 4- 0- 00 01 PH ve RI 28 20 20 0 30 AR NG 46 17 17 36 MA E 6 64 CY 0. 5 #0 ML 23 32 12 .7 MM X3 0G NO 00 02 03 30 30 00 CV Ac VO 16 -1 -1 .0 00 S ti LI 91 2- 0- 00 01 PH ve N 83 20 20 28 AR 70 71 17 17 85 MA -3 1 21 CY 0 10 #0 0 23 UN 32 IT /M L AL AC 65 02 03 10 30 00 CV Ac CU 70 -1 -1 0. 00 S ti -C 20 4- 0- 00 01 PH ve HE 40 20 20 0 28 AR K 81 17 17 85 MA AV 0 22 CY IV A #0 PL [address] RP NJ 68 02 03 30 30 00 CV [...] 00 8- 3- 00 01 PH ve NJ 51 20 20 28 AR IL 70 17 17 67 MA 3 87 CY 40 #0 MG 23 32 TA BL ET BD 08 01 02 10 30 00 [...] [address] RP GA 69 01 02 90 30 00 [...] 00 3- 0- 00 01 PH ve NJ 51 20 20 28 AR IL 70 [...] UN 32 IT /M L AL RA 55 12 01 60 30 00 [...] #0 23 MG 32 TA BL ET Results Labs Lab Lab Date Result Refere Interp Status Commen Order Detail nces retati t Range on Hgb A1c MFr Bld (03-25-2017 06:09) Hgb A1c 5.9 % 4.7-6.0 complet MFr 017 ed Bld 06:09 Lactate Bld-sCnc (03-24-2017 05:08) Lactate 1.4 complet 017 mmol/L ed Bld-sCn 05:08 c Bacteria XXX Resp Cult (03-23-2017 12:20) CC XXX NOTAP complet VC-aCnc 017 NOT ed 12:20 APPLICA BLE L Bacteri INSP complet a XXX 017 SMEAR ed Anaerob 12:20 CONTAIN e+Aerob S >=10 e Cult SQUAMOU S EPITHEL IAL CELLS PER LOW POWER FIELD, SUGGEST JOSE F OF POOR QUALITY . CULTURE NOT PERFORM ED. PLEASE RECOLLE CT IF CLINICA LLY INDICAT ED. A CREDIT HAS BEEN ISSUED. L Procedures Procedure DOS Code Location Performer Comment BYPASS [id number] [facility] PORTAL 7 HEALTHCAR HEALTHCAR VEIN LOW E E VEIN [facility] INTRALUM DEVICE PERQ EXTIRPATI [id number] [facility] ON MATTER 7 HEALTHCAR HEALTHCAR LEFT E E PLEURAL [facility] HOSPITALS CAVITY PERQ ENDO MONITORIN [id number] [facility] G 7 HEALTHCAR HEALTHCAR ARTERIAL E E PRESSURE [facility]OSPITALS HOSPITALS PERIPHERA L PERQ MONITORIN [id number] [facility] G 7 HEALTHCAR HEALTHCAR ARTERIAL E E PULSE [facility] HOSPITALS PERIPHERA L PERQ RESPIRATO [id number] [facility] RY 7 HEALTHCAR HEALTHCAR VENTILATI E E ON > 96 [facility] CONSECUTI VE HOURS Encounters Encounter Start End Date Code Location Performer Type Date [facility] - [facility] OUTPATIEN E [facility] - [address] [facility] [place] [address] [address] [facility] [place] [address] [facility] [place] [address] [facility] [place] [address] [facility] [place] [address] [facility] - 6 6 Y [facility] [place] [address] [facility] [place] [address] [address] [facility] - 6 6 Y [facility] - [address] [facility] - 6 [address] [facility] - [address] [facility] - [address] [facility] - [address] [facility] - 6 [address] [facility] - 6 [address] [facility] - [address] [facility] - [address] [facility] - [address] [facility] - 6 6 Y [facility] - [address] [facility] - [address] [facility] - 6 [address] [facility] - 6 [address] [facility] - 6 6 [facility] - 6 6 [facility] - 5 5 [facility] [place] [facility] 5 5 [facility] - 5 5 N [facility] - 5 5 Y [facility] - 5 N [facility] - [facility] N [facility] - [facility] - 5 N [facility] - 5 5 Y [facility] - 5 N [facility] - 5 5 Y [facility] - 5 5 Y [facility] - 5 N [facility] - 5 N [facility]
--- OUTSIDE RECORDS SUMMARY | 2017-06-27 23:04 | External Medical Summary Rpt | CCD ---
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 [facility] - 6 N OUTPAT[facility] - 6 6 N [facility] - 6 6 N [facility]PAT[facility] - 6 6 [facility] - 6 6 [facility] - 5 5 N [facility] 5 5 [facility] - 5 5 N [facility] - 5 5 Y [facility] - 5 N [facility] - 5 N [facility] - [facility] N [facility] - 5 N [facility] - 5 5 Y [facility] - 5 N [facility] - 5 5 Y [facility] - 5 5 Y [facility] - 5 N [facility] - 5 N [facility]
--- OUTSIDE RECORDS SUMMARY | 2017-06-27 23:10 | External Medical Summary Rpt | CCD ---
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 [id number] [facility] PORTAL 7 [facility] VEIN LOW E E VEIN [facility] INTRALUM DEVICE PERQ EXTIRPATI [id number] [facility] ON MATTER 7 [facility] LEFT E E PLEURAL [facility] CAVITY PERQ ENDO MONITORIN [id number] [facility] G 7 [facility] ARTERIAL E E [facility]ESSURE [facility] PERIPHERA L PERQ MONITORIN [id number] [facility] G 7 [facility]ALTH[facility] HEALTHCAR ARTERIAL E E PULSE [facility] HOSPITALS PERIPHERA L PERQ RESPIRATO [id number] [facility] RY 7 HEALTHCAR HEALTHCAR VENTILATI E E ON > 96 [facility] CONSECUTI VE HOURS Encounters Encounter Start End Date Code Location Performer Type Date [facility] OUTPATIEN E T [facility] - 7 7 [facility] INPATIENT E [facility] [place] [id number] [facility] [address] [facility] [place] [address] [facility] [place] [address] [facility] [address] [facility] - [facility] Y [facility] [place] [address] [facility] [place] [address] [facility] [place] [id number] 6 Y [facility] - 6 6 N [facility] - 6 6 N [facility] - 6 6 N [facility] - 6 6 N [facility] - 6 6 N [facility] - 6 6 N [facility] - 6 6 N [facility] - 6 6 N [facility] - 6 6 N [facility] - 6 6 N [facility] 6 [facility] - 6 6 N [facility] - 6 6 N [facility] - 6 6 N [facility] - 6 6 N [facility] 5 5 N [facility] 5 [facility] [place] [id number] [facility] Y [facility] [place] [address] [facility] [place] [address] [facility] [place] [address] [facility] [place] [address] [facility] - [facility] Y [facility] [place] [address] [facility] Y [facility] - 5 Y [facility] [place] [address] [facility] [place] [address] [address] [facility]
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
--- OUTSIDE RECORDS SUMMARY | 2017-06-27 23:11 | External Medical Summary Rpt | CCD ---
Author Author , IMTIAZ KITCHEN Address Unknown Phone [email or web address] Immunization Name Date Rout CVX Reac Dose [...]
--- OUTSIDE RECORDS SUMMARY | 2017-06-27 23:11 | External Medical Summary Rpt | CCD ---
Author Author , IMTIAZ KITCHEN Address Unknown Phone [email or web address] Immunization Name Date Rout CVX Reac Dose [...]
--- OUTSIDE RECORDS SUMMARY | 2017-06-27 23:12 | External Medical Summary Rpt ---
Author Author IMTIAZ Johnson, [employer] Organization [employer] Address [...] 7:40 PM source source data data DEVICE [id number] No No No No Jun 17 72429 informa informa informa informa 2012 tion in tion in tion in tion in 7:40 PM source source source source data data data data OPERATO [id number] No No No No Jun 17 R [...] 0.5 0.0 - ng/mL No No Jun 17 [...] data data data USN ABDOMEN COMPLET E [id number] FINAL REPORT- ELECTRO NICALLY SIGNED A CCESSIO N #[id number] 9EXAM: USN ABDOMEN COMPLET EDATE: Jun 17, 2012 10:30:0 0 AMACCES MARCE: [id number] EXAM REASON: PAIN .COMPAR [place]: NonePRO CEDURE: [...] Jun 17 SHERYL informmiley informa informa informa 2012 EXAM tion in tion in tion in tion in 10:41 DESCRIP source source source source AM TION: data data data data USN ALDO DOPPLER BILAT [id number] FINAL REPORT- ELECTRO NICALLY SIGNED A CCESSIO N #[id number] 2ACCESS ION: [id number] EXAM REASON: EVAL DVT IN PAT W/SUSPE [...] data DESCRIP TION: CHEST PA 1 LATERAL [id number] FINAL REPORT- ELECTRO NICALLY SIGNED A CCADAMS N #[id number] 9EXAMIN ATION: 2-view chest radiogr aph Jun 17, 2012 8:15:00 AMACCES MARCE: [id number] PROVIDE D INDICAT ION: COUGHCO MPARISO N: [...] nded to ensure resolut ion."I, the attendi /[facility] renu physici an, have persona subhashy reviewe d, discuss ed,and supervi sed this [...] 300 pg/ml No At 300 Jun 17 EXECUTIVE PASTRY CHEF informa pg/mL 2011 tion in NT-proB 8:37 AM source EXECUTIVE PASTRY CHEF has data 99% negativ e predict janneth value for ruling outacut e congest janneth heart failure . In additio n, with other clinica linform ation, NT-proB EXECUTIVE PASTRY CHEF can aid in the diagnos is of [...] TROPONI <0.012 0.000 - ng/mL No TROPONI Nov N-I 0.034 informa N-I: 2011 tion in [...] data POTASSI 3.8 3.5 - mmol/L No Jun 17 UM 5.1 informa informa [...] 7.6 8.4 - mg/dL No No Jun 14 10.2 informa informa 2011 tion in tion in 7:25 AM source source data data ANION 10 7 - 15 mmol/L No No Jun 14 GAP informa informa 2011 tion in tion [...] No Nov 14 L% 2.0 informa informa 2011 tion in tion in 7:25 AM source source data data IMM 0.7 0.0 - % No No Nov 14 GRAN% 0.7 informa informa 2011 tion in [...] 6:58 AM source source data data DEVICE [id number] No No No No Jun 17 76594 informa informa informa informa 2012 tion in tion in tion in tion in 6:58 AM source source source source data data data data OPERATO [id number] No No No No Jun 17 R [...] B.EXAM DESCRIP TION: CHEST DECUBIT US RT [id number] FINAL REPORT- ELECTRO NICALLY SIGNED A CCESSIO N #[id number] 3Access ion: [id number] Date: Jun 17, 2012 2:17:00 PMExam: Right [...] the attendi /[facility] renu physici an, have persona lly reviewe [...] etation Range CAPILLA No No No No Nov 4 R informa informa informa informa 2012 tion in tion in tion in tion in 6:53 PM source source source source data data data data GLUCOSE 262 65 - mg/dL No No Jun 4 110 informa informa 2012 tion in tion in 6:53 PM source source data data DEVICE [id number] No No No No Nov 4 [id number] informa informa informa informa 2012 tion in tion in tion in tion in 6:53 PM source source source source data data data data OPERATO [id number] No No No No Nov 4 R [...] 6:25 PM source source data data COLLECT [id number] No No No No Jun 4 ED BY informa informa informa informa 2012 [...] 136 137 - mmol/L No No Jun 4 145 informa informa 2011 tion in tion [...] data CALCIUM 8.2 8.4 - mg/dL No Jun 07 10.2 informa informa 2011 [...] No Jun 4 GRAN% 0.7 informa informa 2011 tion in tion in 6:25 PM source source data data ABS 7.8 1.70 - Thou/mm No No Jun 4 NEUTROP 6.00 3 informa informa 2011 HIL # tion in tion in 6:25 [...] Jun 4 NATALIA informa informa informa informa 2011 LEXAM tion in tion in tion in tion in 8:08 AM DESCRIP source source source source TION: data data data data CHEST PA 1 LATERAL [id number] FINAL REPORT- ELECTRO NICALLY SIGNED A CCESSIO N #[id number] 8EXAM: CHEST PA AND LATERAL DATE OF EXAM: Jun 07, 2012 8:02:00 PMEXAM REASON: FALLACC ESSION: [id number] FINDING S: Compari son is made to [...] has been ordered , [facility] due to lack ofFDA approve d reagent from the test reagent 's sole [facility] ivan. Questre commend s the use of the Hepatit is C Virus PCR Quantit ative test as asubsti tute, which is provide d here. If additio nal clarifi cation isrequi red, please contact the [facility] ology Laborat ory at [phone]. HCV RNA 1,370,0 No IU/mL No No [...] No No Jul 16 12.0 informa informa 2010 tion in tion in [...] Jul 16 NEUTROP 6.00 3 informa informa 2011 HIL # tion in tion in 11:52 [...] No No Jul 16 145 informa informa 2011 tion in tion [...] ALT 69 20 - 70 U/L No Jul 16 (SGPT) informa informa 2010 [...] 30-594 15-295 <=14The Estimat ed Glomeru lar Fildilciat ion Ratebas ed on CKD-EPI adjuste d for age, sex,and race is validat ed for ages 18-70 years.
--- OUTSIDE RECORDS SUMMARY | 2017-06-27 23:12 | External Medical Summary Rpt ---
[...] 7:40 PM source source data data DEVICE [id number] No No No No Jun 17 [id number] informa informa informa informa 2012 tion in tion in tion in tion in 7:40 PM source source source source data data data data OPERATO [id number] No No No No Jun 17 R [...] data data data USN ABDOMEN COMPLET E [id number] FINAL REPORT- ELECTRO NICALLY SIGNED A CCESSIO N #[id number] 9EXAM: USN ABDOMEN COMPLET EDATE: Jun 17, 2012 10:30:0 0 AMACCES MARCE: [id number] EXAM REASON: PAIN .COMPAR [place]: NonePRO CEDURE: [...] data data data USN ALDO DOPPLER BILAT [id number] FINAL REPORT- ELECTRO NICALLY SIGNED A CCESSIO N #[id number] 2ACCESS ION: [id number] EXAM REASON: EVAL DVT IN PAT W/SUSPE [...] data DESCRIP TION: CHEST PA 1 LATERAL [id number] FINAL REPORT- ELECTRO NICALLY SIGNED A CCADAMS N #[id number] 9EXAMIN ATION: 2-view chest radiogr aph Jun 17, 2012 8:15:00 AMACCES MARCE: [id number] PROVIDE D INDICAT ION: COUGHCO MPARISO N: [...] nded to ensure resolut ion."I, the attendi /[facility] renu physici an, have persona subhashy reviewe [...] 300 pg/ml No At 300 Jun 17 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 In additio n, with other clinica linform ation, NT-proB MEMBERSHIP SOLICITOR can aid in the diagnos is of [...] 6:58 AM source source data data DEVICE [id number] No No No No Jun 17 91739 informa informa informa informa 2012 tion in tion in tion in tion in 6:58 AM source source source source data data data data OPERATO [id number] No No No No Jun 17 R [...] B.EXAM DESCRIP TION: CHEST DECUBIT US RT [id number] FINAL REPORT- ELECTRO NICALLY SIGNED A CCESSIO N #[id number] 3Access ion: [id number] Date: Jun 17, 2012 2:17:00 PMExam: Right [...] n cannot be exclude d."I, the attendi /[facility] renu physici an, have persona lly reviewe [...] 6:53 PM source source data data DEVICE [id number] No No No No Nov 4 53917 informa informa informa informa 2012 tion in tion in tion in tion in 6:53 PM source source source source data data data data OPERATO [id number] No No No No Nov 4 R [...] 6:25 PM source source data data COLLECT [id number] No No No No Jun 4 ED [...] data data data CHEST PA 1 LATERAL [id number] FINAL REPORT- ELECTRO NICALLY SIGNED A CCESSIO N #[id number] 8EXAM: CHEST PA AND LATERAL DATE OF EXAM: Jun 07, 2012 8:02:00 PMEXAM REASON: FALLACC ESSION: [id number] FINDING S: Compari son is made to [...] ordered , [facility] this assay due to lack ofFDA approve d reagent from the test reagent 's sole [facility] ivan. Questre commend s the use of the Hepatit is C Virus PCR Quantit ative test as asubsti tute, which is provide d here. If additio nal clarifi cation isrequi red, please contact the [facility] ology Laborat ory at [phone]. HCV RNA 1,370,0 No IU/mL No [...]
--- NOTE | 2017-06-27 23:47 | Emergency Room Report ---
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 N Clinical Suspician of Infection? N Mental Status: 1 - Regular (Normal Baseline) Sepsis Risk:Low Sepsis Risk Have you (or family members/close friends) recently traveled outside the [place]? N If Yes, where/when: Have you had exposure to infectious disease within the past month? N TB? Other? Specify: Comment The patient is requesting a prescription for antibiotics for infection on his LEFT leg. He states he is diabetic. He says his legs were infected about a month ago. He was on antibiotics for 10 days a couple of weeks ago in his RIGHT leg got better, but the LEFT leg has not changed in the past month. He says it is not any worse. He does not have any fever. He just does not want it to get worse so he requests a prescription for antibiotics. He does not remember what his previous antibiotic was, but says he took it 3 times a day for 10 days. ALLERGIES Coded Allergies: No Known Allergies (07/10/15) Home Medications Reported Medications Furosemide (Furosemide 40MG) 40 MG PO DAILY Gabapentin (Gabapentin 800MG) 800 MG PO Q8 Bupropion Hcl (Bupropion HCl Sr) 150 MG PO DAILY Aspirin (Aspir-Low) 81 MG PO DAILY INSUL REG 30%ISOPHAN 70% HUMAN (Humulin 70-30 Vial) 40 UNITS SC TID Lisinopril (Lisinopril 40MG) 40 MG PO DAILY Pantoprazole Sodium (Pantoprazole 40MG) 40 MG PO DAILY Ondansetron (Zofran 8MG Odt) 4 MG PO PRN PRN N/V Nadolol 40 MG PO DAILY HYDROCODONE/ACETAMINOPHEN (Hydrocodon-Acetaminoph 7.5-325) 1 TAB PO TID History Medical History General CAD? No Angina: No AR: No Hypertension? Yes Hyperlipidemia? No CHF? No DVT? No PE? No COPD? No Asthma? No Anemia? No GERD? Yes Gastric ulcers? No GI Bleed? No Hernia? No Thyroid Problems? No Hypothyroidism? No CVA? No Seizures? No Diabetes? Yes Insulin Dependent: Yes Insulin Pump: No Home FSBS? Yes Renal Insuffiency? No End Stage Renal Disease? No UTI? No Stones? No BPH? No GB Disease: No Nephritic Syndrome? No Asplenia? No Hepatitis? Yes Sickle Cell Disease? No Arthritis? Yes Migraines? No Cataracts? No Glaucoma? No MRSA? No HIV? No TB? No Anxiety? No Depression? No Cancer? No More? No Immunization Hx DT/Tetanus 1-4 Years Ago Surgical Hx Previous Surgery?Y RIGHT CLAVICAL Lung Procedures HIP RELACEMENT TRACH PLACED LUNGS PROCEDURE Social History Smoking Hx Smoker: Current Every Day Smoker Tobacco: Yes Type Cigarettes Packs/day < 1 Pack Alcohol Alcohol: No Review of Systems All Other Systems Reviewed and Negative Constitutional denies fever Skin other (redness) Physical Exam Vital Signs Vital Signs Date Time Temp Pulse Resp B/P Pulse O2 O2 Flow FiO2 Ox Delivery Rate 06/28 0021 97.9 91 16 136/84 96 06/27 2239 97.9 94 16 160/87 96 General Appearance no apparent distress, ambulatory Respiratory Status No: respiratory distress. Cardiovascular regular rate/rhythm, normal peripheral pulses Extremities 3 cm diameter scab LEFT pretibial area. Mild to moderate 3 cm width erythema extending predominantly distal to the scab approximately 10 cm. No lymphangitis. No abscess or purulent drainage. Normal neurovascular status. Neurologic alert Medical Decision Making LABS/Meds/Orders Pt receiving controlled substance in ED? No Results/Orders Current Medication Orders Sig/Ellie Start time Last Medication Dose Route Stop Time Status Admin Clindamycin HCl 0 .STK-MED ONE 06/27 2355 DC PO Clindamycin HCl 300 MG ONCE ONE 06/27 2345 DC 06/27 PO 06/27 2346 235 Departure Departure Disposition DC Home or Self Care(routine) Clinical Impression Primary Impression: Cellulitis of leg Qualifiers: Laterality: left Qualified Code: L03.116 - Cellulitis of left lower limb Condition STABLE Patient Instructions DI for Cellulitis -- Adult Additional Instructions Elevate your leg throughout the day. Follow-up with your primary care physician next week, call [facility] for appointment. Return to the emergency department if fever, increasing pain, swelling, or red streaks. Prescriptions Current Visit Scripts Clindamycin Hcl (Clindamycin 300MG) 300 MG PO QID #40 CAP ED Critical Care Critical Care No at 0106
[2017-06-28 00:21] VITALS: BP 136/84
== END ==
LOC: ER 22:34
DX: L03.116 Cellulitis of left lower limb (principal); I10 Essential (primary) hypertension; K21.9 Gastro-esophageal reflux disease without esophagitis; F17.210 Nicotine dependence, cigarettes, uncomplicated; E11.9 Type 2 diabetes mellitus without complications; Z79.4 Long term (current) use of insulin